=== PATIENT | male | born 1960 | race Caucasian/White ===

== ENCOUNTER 2018-03-06 23:18 | Emergency (ER) | payer MEDICARE, OTHER ==
[~2018-03-06] VITALS: Ht 167.6 cm; Wt 49.0 kg
[~2018-03-06 23:18] MED LIST: ACET160E5 PEG; ACET160O49 PEG; ACIDOPHILUS100 MG PO; CARB200O5 PEG; CLON1PAT TD; CRAN1POW MC; DIAZ2TAB3 PEG; DOCU50LI PEG; DOXA1TAB2 PEG; DOXA2TAB2 PEG; DOXY20TA5 PEG; ECON15CR TP; ESOM40SU PEG; FLUT16SP NS; LIDO700A27 TP; LOPE1LIQ PEG; LORA5SOL4 PEG; MAGN2400 PEG; MAGN400T3 PO; MIRT15TA3 PEG; MONT10TA9 PEG; POLY17PO29 PEG; POLY17PO29 PO; SENN8.8S5 PEG; SIME80TA14 PEG; TERB30CR TP; TRAZ150T49 PEG; VITA113. TP; ZINC56.7 TP; ZIPR20CA3 PEG; ZIPR80CA3 PEG; [UNRECOGNIZED DRUG - CODE] PEG; [UNRECOGNIZED DRUG - CODE] PEG
--- NOTE | 2018-03-07 03:49 | PHYS DOC ---
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 Tube last functioned at 5 PM during feeding and patient has not been able to get his APM medications yet. Patient has had no vomiting. Review of Systems Review of Systems Constitutional: Denies fever or chills [] Respiratory: Denies cough or shortness of breath [] Cardiovascular: Denies chest pain[] GI: Denies abdominal pain, nausea, vomiting [] All other systems were reviewed and found to be within normal limits, except as documented in this note. Allergies Allergies Allergies Coded Allergies Type Severity Reaction Last Updated Verified No Known Drug Allergies 01/12/18 No Physical Exam Physical Exam Constitutional: Well developed, well nourished, no acute distress, non-toxic appearance. [] HENT: Normocephalic, atraumatic, bilateral external ears normal. [] Eyes: PERRLA, EOMI, conjunctiva normal, no discharge. [] Neck: Normal range of motion, no tenderness, supple, no stridor. [] Cardiovascular:Heart rate regular rhythm [] Lungs & Thorax: Bilateral breath sounds clear to auscultation [] Abdomen: Bowel sounds normal, soft, no tenderness. [] Skin: Warm, dry. [] Extremities: No tenderness, no cyanosis, no clubbing. [] Neurologic: Awake and alert with no obvious focal deficits. [] Current Patient Data Vital Signs Vital Signs Date Time Temp Pulse Resp B/P (MAP) Pulse Ox O2 Delivery O2 Flow Rate FiO2 03/07/18 00:18 97.5 70 16 170/83 (112) 99 Room Air 97.5 EKG EKG [] Radiology/Procedures Radiology/Procedures [] Course & Med Decision Making Course & Med Decision Making Pertinent Labs and Imaging studies reviewed. (See chart for details) Offered to change out to one of the gastrostomy tubes that we have at this facility. Unfortunately we do not have any of the Anuel low-profile gastrostomy tubes. Family prefers not to have a different tube other than the low-profile to placed as patient has pulled him out in the past. They have requested to be transferred to . transfer center was contacted and Dr. Miller will accept patient in transfer. Christel Disclaimer Jose Guadalupeon Disclaimer This electronic medical record was generated, in whole or in part, using a voice recognition dictation system. Departure Departure Impression: Primary Impression: Gastrostomy tube dysfunction Disposition: 02 TRANSFER [facility] Condition: STABLE Referrals: IDA VALENTIN MD (PCP) LESLEY WALTERS Jr. DO Mar 07, 2018 03:49
[2018-03-07 03:50] VITALS: BP 146/90
[2018-03-07 04:28] LABS: BASO # 0.1 x10^3/uL (0.0-0.2); BASO % 1 % (0-3); EOS % 1 % (0-3); HEMATOCRIT 37.7 % (39.0-53.0); LYMPH # 1.4 x10^3/uL (1.0-4.8); LYMPH % 29 % (24-48); MEAN CORPUSCULAR HEMOGLOBIN 31 pg (25-35); MEAN CORPUSCULAR HGB CONC 34 g/dL (31-37); MEAN CORPUSCULAR VOLUME 91 fL (79-100); MONO # 0.3 x10^3/uL (0.0-1.1); MONO % 6 % (0-9); NEUT # 3.2 x10^3uL (1.8-7.7); NEUT % 63 % (31-73); PLATELET COUNT 311 x10^3/uL (140-400); RED BLOOD COUNT 4.14 x10^6/uL (4.30-5.70); RED CELL DISTRIBUTION WIDTH 15.5 % (11.5-14.5)
[2018-03-07 04:42] LABS: CALCIUM 9.4 mg/dL (8.5-10.1); CREATININE 0.6 mg/dL (0.7-1.3); GFR 137.9; POTASSIUM 4.2 mmol/L (3.5-5.1)
[2018-03-07 04:48] LABS: ALBUMIN 3.5 g/dL (3.4-5.0); ALBUMIN/GLOBULIN RATIO 0.8 (1.0-1.7); TOTAL BILIRUBIN 0.2 mg/dL (0.2-1.0); TOTAL PROTEIN 7.9 g/dL (6.4-8.2)
== END 2018-03-07 05:14 | disposition short-term general hospital (02) ==
LOC: ER 23:18
DX: K94.23 Gastrostomy malfunction (principal); K21.9 Gastro-esophageal reflux disease without esophagitis; I10 Essential (primary) hypertension
CPT/HCPCS: 36415; 80053; 85025; 99285

== ENCOUNTER 2019-07-07 00:35 | Inpatient (IN) | payer MEDICARE, OTHER ==
[2019-07-06 23:35] VITALS: BP 163/83
[2019-07-07] VITALS (7 sets, daily range): BP systolic 139–173; BP diastolic 60–97
[~2019-07-07] VITALS: Ht 172.7 cm; Wt 55.3 kg
[~2019-07-07 00:35] MED LIST changes: +DICL100G18 TP; -LORA5SOL4 PEG; +LORA5SOL43 PEG; -MAGN400T3 PO; +MAGN400T5 PO; +MONT10TA49 PEG; -MONT10TA9 PEG
[2019-07-07] MEDS ORDERED: VITS5OIN TP (02:39)
[2019-07-07] MEDS ORDERED: METH57CR17 TP (02:39)
[2019-07-07] MEDS ORDERED: ACID1CAP PEG (02:39)
[2019-07-07] MEDS ORDERED: TERBINAFINE 1% TOP ×2 (02:39)
[2019-07-07] MEDS ORDERED: BISA10SU55 RC (02:39)
[2019-07-07] MEDS ORDERED: FAMO40OR4 PO (02:39)
[2019-07-07] MEDS ORDERED: ZIPR40CA2 PEG (02:39)
[2019-07-07] MEDS ORDERED: ONDANSETRON PF 4 MG/2 ML VIAL. IVP PRN (05:00)
[2019-07-07] MEDS ORDERED: fentaNYL PF VIAL 100 MCG/2 ML VIAL IVP PRN (05:00)
[2019-07-07] MEDS: IV DEXTROSE 5% - 0.9 % NACL 1,000 ML IV SCH ×2 (05:19→17:20)
[2019-07-07] MEDS ORDERED: VANCOMYCIN 1.5 GM in IV NORMAL SALINE 500ML BAG 500 ML IV ONE (05:30)
[2019-07-07] MEDS ORDERED: PIPERACILLIN/TAZOBACTAM 3.375 GM in IV NORMAL SALINE 50ML 50 ML IV SCH (06:00)
[2019-07-07 06:31] LABS: BASO % 0 % (0-3); EOS % 0 % (0-3); HEMATOCRIT 40.3 % (39.0-53.0); HEMOGLOBIN 13.7 g/dL (13.0-17.5); LYMPH # 1.1 x10^3/uL (1.0-4.8); LYMPH % 15 % (24-48); MEAN CORPUSCULAR HEMOGLOBIN 32 pg (25-35); MEAN CORPUSCULAR HGB CONC 34 g/dL (31-37); MEAN CORPUSCULAR VOLUME 93 fL (79-100); MONO # 0.6 x10^3/uL (0.0-1.1); MONO % 9 % (0-9); NEUT # 5.2 x10^3/uL (1.8-7.7); NEUT % 75 % (31-73); PLATELET COUNT 304 x10^3/uL (140-400); RED BLOOD COUNT 4.31 x10^6/uL (4.30-5.70); RED CELL DISTRIBUTION WIDTH 15.9 % (11.5-14.5); WHITE BLOOD COUNT 6.9 x10^3/uL (4.0-11.0)
[2019-07-07 06:43] LABS: ALBUMIN 3.4 g/dL (3.4-5.0); ALBUMIN/GLOBULIN RATIO 0.8 (1.0-1.7); CALCIUM 8.8 mg/dL (8.5-10.1); CREATININE 0.6 mg/dL (0.7-1.3); POTASSIUM 3.8 mmol/L (3.5-5.1); TOTAL BILIRUBIN 0.4 mg/dL (0.2-1.0); TOTAL PROTEIN 7.7 g/dL (6.4-8.2)
[2019-07-07] MEDS: VANCOMYCIN PER PHARMACY MC PRN (07:45)
--- NOTE | 2019-07-07 07:45 | NUR ---
Pharmacy Vancomycin Dosing Note S: Consulted to monitor and dose vancomycin started 07/07/19. O: BARB DEVI is a 59 year old M with Sepsis Other Antibiotics: ZOSYN LABS: Last BUN: 17 Last Creatinine: 0.6 Creatinine Clearance: 100 mL/min Last WBC: 6.9 Tmax (past 24 hours): 98.3 Target Trough: 15-20 A: Based on: VANCO dosing guidelines P: 1. Begin Vancomycin 1500mg LOAD dose, then 1000 mg IV q12h 2. Follow up Trough level on 07/08/19 at 1730 3. Pharmacy will continue to monitor, follow and adjust therapy as needed. WILIAN DOMINGUEZ RP, 07/07/19 [id number]
[2019-07-07] MEDS: levETIRAcetam 500 MG in IV DEXTROSE 5% 100ML 100 ML IV SCH ×2 (08:18→21:19)
--- NOTE | 2019-07-07 09:31 | PDOC2 ---
MARBELLA ABDUL SALES DESIGNER 07/07/19 0931: CONSULT Date of Consult Date of Consult DATE: 07/07/19 TIME: 09:24 Reason for Consult Reason for Consult: vomiting Referring Physician Referring Physician: ER Identification/Chief Complaint Chief Complaint vomiting Source Source: Chart review History of Present Illness Reason for Visit: Admitted with vomiting, abdominal pain. PEG, could not keep anything down. Patient has been admitted multiple times/issues CT showed stool in colon, no obstruction Past Medical History Cardiovascular: No pertinent hx GI: GERD Past Surgical History Past Surgical History: Other Family History Family History: Hypertension Social History Social History: Parent ALCOHOL: none Drugs: None Current Medications Current Medications Current Medications Dextrose/Sodium Chloride 1,000 ml @ 100 mls/hr Q10H IV Last administered on 07/07/19at 05:19; Start 07/07/19 at 05:00 Levetiracetam 500 mg/Dextrose 105 ml @ 420 mls/hr Q12HR IV Last administered on 07/07/19at 08:18; Start 07/07/19 at 09:00 Vancomycin HCl (Vanco Per Pharmacy) 1 each PRN DAILY PRN MC SEE COMMENTS Last administered on 07/07/19at 07:45; Start 07/07/19 at 05:00 Piperacillin Sod/ Tazobactam Sod 3.375 gm/Sodium Chloride 50 ml @ 100 mls/hr Q8HRS IV Last administered on 07/07/19at 05:36; Start 07/07/19 at 06:00; Stop 07/07/19 at 07:28; Status DC Fentanyl Citrate (Fentanyl 2ml Vial) 50 mcg PRN Q4HRS PRN IVP PAIN; Start 07/07/19 at 05:00 Ondansetron HCl (Zofran) 4 mg PRN Q4HRS PRN IVP NAUSEA/VOMITING; Start 07/07/19 at 05:00 Vancomycin HCl 1.5 gm/Sodium Chloride 500 ml @ 250 mls/hr 1X ONCE IV Last administered on 07/07/19at 05:36; Start 07/07/19 at 05:30; Stop 07/07/19 at 07:29; Status DC Piperacillin Sod/ Tazobactam Sod 3.375 gm/Sodium Chloride 50 ml @ 100 mls/hr Q6HRS IV ; Start 07/07/19 at 12:00 Vancomycin HCl 1 gm/Sodium Chloride 250 ml @ 250 mls/hr Q12H IV ; Start 07/07/19 at 18:00 Vancomycin HCl (Vancomycin Trough Level) 1 each 1X ONCE MC ; Start 07/08/19 at 17:30; Stop 07/08/19 at 17:31 Active Scripts Active Reported Vitamin A & D Ointment Packet (Vits A & D/White Pet/Lanolin) 5 Gm Oint.pack 5 Gm TP PRN QID PRN Bengay Greaseless Cream (Methyl Salicylate/Menthol) 57 Gm Cream..g. 1 Vel TP PRN BID PRN 10 Days Geodon (Ziprasidone Hcl) 40 Mg Capsule 40 Mg PEG BID [Terbinafine 1% Cream] 1 Vel TOP PRN BID PRN APPLY TO AFFECTED AREA TWICE A DAY AND NEEDED UP TO FOUR TIMES A DAY FOR SKIN FUNGAL INFECTION [Terbinafine 1%] 1 Applic TOP BID APPLY TO AFFECTED AREA TWICE A DAY AND NEEDED UP TO FOUR TIMES A DAY Famotidine 40 Mg/5 Ml Oral.susp 40 Mg PO HS Dulcolax (Bisacodyl) 10 Mg Supp.rect 1 Supp RC HS 10 Days Acidophilus Probiotic Capsule (Acidophilus/Pectin, [place]) 1 Each Capsule 2 Cap PEG DAILY 30 Days Montelukast Sodium Tablet (Montelukast Sodium) 10 Mg Tablet 1 Tab PEG HS Loratadine 5 Mg/5 Ml Solution 10 Ml PEG DAILY Clonidine Tts-1 (Clonidine) 1 Each Patch.tdwk 1 Patch TD SATURDAYS Docusate Sodium 50 Mg/5 Ml Liquid 50 Mg PEG PRN DAILY PRN Acetaminophen 160 Mg/5 Ml Oral.susp 20 Ml PEG PRN Q6HRS PRN Miralax (Polyethylene Glycol 3350) 17 Gm Powd.pack 1 Packet PEG DAILY Doxazosin Mesylate 2 Mg Tablet 1 Tab PEG HS Simethicone 80 Mg Tab.chew 80 Mg PEG PRN DAILY PRN Nutren (Nutritional Supplement) 1,000 Ml Liquid 250 Ml PEG 5XDAY Magnesium Oxide 400 Mg Tablet 1 Tab PO BID Nexium Packet (Esomeprazole Magnesium) 40 Mg Suspdr.pkt 40 Mg PEG BID mix packet in 15ml of water, wait 2-3 min and administer via J tube Carbamazepine 200 Mg/10 Ml Oral.susp 300 Mg PEG HS Carbamazepine 200 Mg/10 Ml Oral.susp 200 Mg PEG BIDACBL Allergies Allergies: Coded Allergies: No Known Drug Allergies (Unverified , 01/12/18) ROS Review of System poor account of ROS due to mental status Physical Exam General: Cooperative, No acute distress HEENT: Atraumatic, Mucous membr. moist/pink Lungs: Clear to auscultation, Normal air movement Heart: Regular rate, Normal S1, Normal S2 Abdomen: Soft, Other (ND) Extremities: No clubbing, No cyanosis Neuro: Normal speech, Sensation intact Vitals VITALS Vital Signs Date Time Temp Pulse Resp B/P (MAP) Pulse Ox O2 Delivery O2 Flow Rate FiO2 07/07/19 07:00 98.6 90 18 166/86 (112) 94 Room Air 98.6 Labs Labs Laboratory Tests Test 07/07/19 05:43 White Blood Count 6.9 x10^3/uL (4.0-11.0) Red Blood Count 4.31 x10^6/uL (4.30-5.70) Hemoglobin 13.7 g/dL (13.0-17.5) Hematocrit 40.3 % (39.0-53.0) Mean Corpuscular Volume 93 fL (79-100) Mean Corpuscular Hemoglobin 32 pg (25-35) Mean Corpuscular Hemoglobin Concent 34 g/dL (31-37) Red Cell Distribution Width 15.9 % (11.5-14.5) Platelet Count 304 x10^3/uL (140-400) Neutrophils (%) (Auto) 75 % (31-73) Lymphocytes (%) (Auto) 15 % (24-48) Monocytes (%) (Auto) 9 % (0-9) Eosinophils (%) (Auto) 0 % (0-3) Basophils (%) (Auto) 0 % (0-3) Neutrophils # (Auto) 5.2 x10^3/uL (1.8-7.7) Lymphocytes # (Auto) 1.1 x10^3/uL (1.0-4.8) Monocytes # (Auto) 0.6 x10^3/uL (0.0-1.1) Eosinophils # (Auto) 0.0 x10^3/uL (0.0-0.7) Basophils # (Auto) 0.0 x10^3/uL (0.0-0.2) Sodium Level 136 mmol/L (136-145) Potassium Level 3.8 mmol/L (3.5-5.1) Chloride Level 101 mmol/L (98-107) Carbon Dioxide Level 27 mmol/L (21-32) Anion Gap 8 (6-14) Blood Urea Nitrogen 17 mg/dL (8-26) Creatinine 0.6 mg/dL (0.7-1.3) Estimated GFR (Cockcroft-Gault) 137.0 BUN/Creatinine Ratio 28 (6-20) Glucose Level 111 mg/dL (70-99) Calcium Level 8.8 mg/dL (8.5-10.1) Total Bilirubin 0.4 mg/dL (0.2-1.0) Aspartate Amino Transf (AST/SGOT) 25 U/L (15-37) Alanine Aminotransferase (ALT/SGPT) 36 U/L (16-63) Alkaline Phosphatase 94 U/L (46-116) Total Protein 7.7 g/dL (6.4-8.2) Albumin 3.4 g/dL (3.4-5.0) Albumin/Globulin Ratio 0.8 (1.0-1.7) Laboratory Tests Test 07/07/19 05:43 White Blood Count 6.9 x10^3/uL (4.0-11.0) Red Blood Count 4.31 x10^6/uL (4.30-5.70) Hemoglobin 13.7 g/dL (13.0-17.5) Hematocrit 40.3 % (39.0-53.0) Mean Corpuscular Volume 93 fL (79-100) Mean Corpuscular Hemoglobin 32 pg (25-35) Mean Corpuscular Hemoglobin Concent 34 g/dL (31-37) Red Cell Distribution Width 15.9 % (11.5-14.5) Platelet Count 304 x10^3/uL (140-400) Neutrophils (%) (Auto) 75 % (31-73) Lymphocytes (%) (Auto) 15 % (24-48) Monocytes (%) (Auto) 9 % (0-9) Eosinophils (%) (Auto) 0 % (0-3) Basophils (%) (Auto) 0 % (0-3) Neutrophils # (Auto) 5.2 x10^3/uL (1.8-7.7) Lymphocytes # (Auto) 1.1 x10^3/uL (1.0-4.8) Monocytes # (Auto) 0.6 x10^3/uL (0.0-1.1) Eosinophils # (Auto) 0.0 x10^3/uL (0.0-0.7) Basophils # (Auto) 0.0 x10^3/uL (0.0-0.2) Sodium Level 136 mmol/L (136-145) Potassium Level 3.8 mmol/L (3.5-5.1) Chloride Level 101 mmol/L (98-107) Carbon Dioxide Level 27 mmol/L (21-32) Anion Gap 8 (6-14) Blood Urea Nitrogen 17 mg/dL (8-26) Creatinine 0.6 mg/dL (0.7-1.3) Estimated GFR (Cockcroft-Gault) 137.0 BUN/Creatinine Ratio 28 (6-20) Glucose Level 111 mg/dL (70-99) Calcium Level 8.8 mg/dL (8.5-10.1) Total Bilirubin 0.4 mg/dL (0.2-1.0) Aspartate Amino Transf (AST/SGOT) 25 U/L (15-37) Alanine Aminotransferase (ALT/SGPT) 36 U/L (16-63) Alkaline Phosphatase 94 U/L (46-116) Total Protein 7.7 g/dL (6.4-8.2) Albumin 3.4 g/dL (3.4-5.0) Albumin/Globulin Ratio 0.8 (1.0-1.7) Assessment/Plan Assessment/Plan vomiting, abd pain CT without acute findings, did show moderate stool in colon no surgical indications IRON RIVERA MD 07/07/19 0945: CONSULT Assessment/Plan Assessment/Plan Patient seen and examined by me resting comfortably in bed denies any abdominal pain. Abdomen is soft nontender nondistended with normoactive bowel sounds gastrostomy button in place. Agree with Asya assessment and plan may benefit from 2:00 suppository would advance diet as tolerated MARBELLA ABDUL APRN Jul 07, 2019 09:31 IRON RIVERA MD Jul 07, 2019 09:45
[2019-07-07] MEDS: PIPERACILLIN/TAZOBACTAM 3.375 GM in IV NORMAL SALINE 50ML 50 ML IV SCH ×2 (11:49→17:19)
[2019-07-07] MEDS ORDERED: DOCUSATE 100 MG/10 ML SOLUTION. PEG PRN (12:15)
[2019-07-07] MEDS ORDERED: METHYL SALICYLATE/MENTHOL TOPICAL CREAM 57GM TUBE. TP PRN (12:15)
[2019-07-07] MEDS ORDERED: cloNIDine TTS-1 1 PATCH PATCH.TDWK TD SCH (13:00)
[2019-07-07] MEDS ORDERED: MAGNESIUM CITRATE 296 ML SOLUTION. PO ONE (13:00)
--- NOTE | 2019-07-07 13:15 | HP ---
ADMIT DATE: HISTORY OF PRESENT ILLNESS: The patient is a 59-year-old male patient, a resident at [facility], who presented to the Emergency Room of [facility] with his athletic trainer from his [facility]. He apparently had 2 episodes of vomiting today after his PEG tube was feeding. He also started complaining of cough. Today they are concerned about aspiration. The patient has been having urinary retention. His current caregiver is not sure if he had had completed retention for the last 1-2 days and just decreased output. His chart does not have urination noted. His caregiver was concerned about this and the patient had had urine retention problems before. He has not been reported to have fever, does complain of generalized abdominal pain. He was evaluated in the Emergency Room and apparently his lab work showed he has leukocytosis with a white cell count of 14,900. His chemistry showed he has mild hyponatremia. Urinalysis was essentially unremarkable and has had a KUB, which basically showed bowel gas pattern is unremarkable. No suspicious abdominal calcification. Osteopenia is evident. His chest x-ray showed the cardiomediastinal silhouette is normal, minimal linear left basilar discoid atelectasis present. There is no pneumothorax, no pleural effusion is appreciated, no acute bony abnormalities. I spoke with the ER physician. I explained to him that this patient has multiple episodes of small-bowel obstruction and a CT scan of the abdomen and pelvis need to be done and he might need to be transferred to [facility]. He did have a CT scan of the abdomen and pelvis, which showed that his G-tube is presented to the pyloric region. There is moderate quantity of stool in the colon noted. Gonsalez catheter is present in urinary bladder. Circumferential wall thickening of the urinary bladder is noted. There was no evidence of enlarged abdominal or pelvic lymph nodes. No ascites or pelvic free fluid was transferred to [facility] to consult the surgical team. He apparently was seen by the surgical team and they did not see any need for any surgical intervention and that is the aggressive treatment for his constipation. PAST MEDICAL HISTORY: Significant for intellectual disability, Crohn's disease, recurrent episodes of small-bowel obstruction, chronic aspiration pneumonia, dysphagia, status post percutaneous endoscopic gastrostomy tube, seizure disorder, incontinence, benign prostatic hypertrophy with episode of urinary retention, anxiety and depression. PAST SURGICAL HISTORY: Significant for multiple gastrostomy tube placements. Finally, he has LATASHA-PACE button has multiple exploratory laparotomies for multiple bowel obstructions, has multiple abdominal surgeries. ALLERGIES: He has no known drug allergies. FAMILY HISTORY: Noncontributory. SOCIAL HISTORY: The patient is a resident at [facility]. He does not smoke, drink alcohol or use any recreational drugs. MEDICATIONS: He is currently on following medications: He is on clonidine TTS 1 patch weekly, doxazosin mesylate 2 mg per feeding tube at bedtime, Diclofenac sodium 2 grams apply topically daily, carbamazepine 100 mg/5 mL, he takes 10 mL twice a day with breakfast and lunch. He takes 15 mL at bedtime for seizure disorder, ziprasidone for Geodon 40 mg 3 times a day, Nutren. He is in room 58. He is on Nutren two 250 mL per feeding tube 4 times a day. He is on bisacodyl 10 mg suppository rectally daily p.r.n. for constipation, docusate sodium 50 mg per 5 mL liquid 5 mL per feeding tube daily. He is on magnesium hydroxide for milk of magnesia 30 mL per feeding tube daily, polyethylene glycol 17 grams daily. He is on famotidine 40 mg per 5 mL oral suspension daily, terbinafine 15 grams cream applied topically 4 times a day. PHYSICAL EXAMINATION: GENERAL: On arrival to the Emergency Room, the patient looked well and was clearly in no apparent respiratory distress. No pallor, jaundice or cyanosis. No lymphadenopathy, no thyromegaly. No jugular venous distension. No lower limb edema. VITAL SIGNS: His heart rate was 96, blood pressure was 161/87, temperature was 98.2, respiratory rate was 20, and oxygen saturation was 96% on room air. HEAD, EYES, EARS, NOSE AND THROAT: Showed he is normocephalic, atraumatic. NECK: Supple. HEART: Showed normal first and second heart sounds. No gallop, rub or murmur. CHEST: Clear to auscultation. No crepitation or rhonchi. ABDOMEN: Distended, soft with LATASHA-PACE button in the epigastric area. No guarding or rigidity. No organomegaly. All hernial orifice intact. Bowel sounds normal. NEUROLOGIC: He was awake, alert, responding appropriately. All cranial nerves intact. EXTREMITIES: He moves extremities without difficulty. LABORATORY DATA: Showed a white cell count 14,900, hemoglobin 14, hematocrit 42, MCV 93, and platelet count 322,000. His chemistry showed a serum sodium of 131, potassium 4.1, chloride 91, bicarbonate 30, anion gap of 10, BUN 21, creatinine 0.8, estimated GFR was 98 mL per minute. His glucose was 116, calcium was 9.4. Total bilirubin, AST, ALT, alkaline phosphatase were normal. Total protein was 8, albumin 3.9. As I stated, his KUB showed that bowel gas pattern is unremarkable. No suspicious abdominal calcification. Osteopenia is evident. His chest x-ray showed that the cardiomediastinal silhouette is normal, minimal linear left basilar discoid atelectasis present. There is no pneumothorax, no pleural effusion is appreciated, no acute bony abnormalities and a CT scan of the abdomen and pelvis showed that the patient has right coronary artery calcification present. Bibasilar discoid atelectasis is noted. Possibilities infiltrate is not excluded on this exam limited due to motion at the right hepatic lobe posterior segment with a 1.6 cm diameter hypoenhancing lesion. He has remained stable. Spleen, pancreas, adrenal glands and kidneys are normal. Gallbladder fossa is unremarkable. G-tube is present at the pyloric region. Moderate quantity of stool in the colon noted. No extraluminal gas, circumferential wall thickening of the stomach is noted. Stomach was decompressed. No bowel obstruction, moderate quantity of stool within the colon. Gonsalez catheter is present in the urinary bladder. Circumferential wall thickening of the urinary bladder is noted. Minimal gas in the urinary bladder. No surrounding inflammatory finding. No enlarged abdominal or pelvic lymph nodes. No ascites or pelvic free fluid, cephalization of L5 noted. PLAN: Apparently the patient was seen by the surgical team and the abdomen is soft, nondistended with normal bowel sounds and gastrostomy tube is in place. The patient would benefit from suppositories and to advance his diet as tolerated. I will order the Dulcolax suppositories for now and see if he has any bowel movement. Once he started having bowel movement, we will start his tube feeding and all his other medications given through the feeding tube. NEYMAR GRIMES MD DR: WENDIE/suzanne JOB#: [id number] / [id number]
--- NOTE | 2019-07-07 15:26 | NUR ---
SW following for discharge planning. Discussed with RN, pt is a resident at a [facility]. SW will continue to follow for discharge planning needs.
[2019-07-07] MEDS: VANCOMYCIN 1 GM in IV NORMAL SALINE 250ML 250 ML IV SCH (17:23)
[2019-07-07] MEDS: BISACODYL 10 MG SUPP.RECT. RC SCH (21:16)
[2019-07-07] MEDS: MAGNESIUM OXIDE 400 MG TABLET PO SCH (21:17)
--- NOTE | 2019-07-08 00:04 | NUR ---
Attempted to readjust mask but pt claimed he doesnt want to continue to use the bipap tonight. Addendum: 07/08/19 at 0200 by MICHELLE HERNÁNDEZ RN Disregard above note, wrong patient.
[2019-07-08] MEDS: PIPERACILLIN/TAZOBACTAM 3.375 GM in IV NORMAL SALINE 50ML 50 ML IV SCH ×4 (00:14→17:15)
[2019-07-08 03:00] VITALS: BP 147/80
[2019-07-08] MEDS: IV DEXTROSE 5% - 0.9 % NACL 1,000 ML IV SCH ×3 (05:29→21:25)
[2019-07-08] MEDS: VANCOMYCIN 1 GM in IV NORMAL SALINE 250ML 250 ML IV SCH ×2 (06:02→18:54)
[2019-07-08 07:00] VITALS: BP 156/72
--- NOTE | 2019-07-08 08:48 | PDOC ---
MARBELLA ABDUL MAINS AND SERVICE SUPERVISOR 07/08/19 0848: SURGICAL PROGRESS NOTE Subjective difficult to communicate with pt documented 4 stools no documented emesis Vital Signs Vital Signs Date Time Temp Pulse Resp B/P (MAP) Pulse Ox O2 Delivery O2 Flow Rate FiO2 07/08/19 03:00 97.4 77 18 147/80 (102) 95 97.4 07/07/19 15:00 Room Air I&O Intake and Output 07/08/19 07:00 Intake Total 0 ml Output Total 2250 ml Balance -2250 ml Intake Oral 0 ml Output Urine Total 2250 ml # Bowel Movements 4 General: Cooperative, No acute distress Abdomen: Soft, Other (ND) Labs Laboratory Tests Test 07/07/19 05:43 White Blood Count 6.9 x10^3/uL (4.0-11.0) Red Blood Count 4.31 x10^6/uL (4.30-5.70) Hemoglobin 13.7 g/dL (13.0-17.5) Hematocrit 40.3 % (39.0-53.0) Mean Corpuscular Volume 93 fL (79-100) Mean Corpuscular Hemoglobin 32 pg (25-35) Mean Corpuscular Hemoglobin Concent 34 g/dL (31-37) Red Cell Distribution Width 15.9 % (11.5-14.5) Platelet Count 304 x10^3/uL (140-400) Neutrophils (%) (Auto) 75 % (31-73) Lymphocytes (%) (Auto) 15 % (24-48) Monocytes (%) (Auto) 9 % (0-9) Eosinophils (%) (Auto) 0 % (0-3) Basophils (%) (Auto) 0 % (0-3) Neutrophils # (Auto) 5.2 x10^3/uL (1.8-7.7) Lymphocytes # (Auto) 1.1 x10^3/uL (1.0-4.8) Monocytes # (Auto) 0.6 x10^3/uL (0.0-1.1) Eosinophils # (Auto) 0.0 x10^3/uL (0.0-0.7) Basophils # (Auto) 0.0 x10^3/uL (0.0-0.2) Sodium Level 136 mmol/L (136-145) Potassium Level 3.8 mmol/L (3.5-5.1) Chloride Level 101 mmol/L (98-107) Carbon Dioxide Level 27 mmol/L (21-32) Anion Gap 8 (6-14) Blood Urea Nitrogen 17 mg/dL (8-26) Creatinine 0.6 mg/dL (0.7-1.3) Estimated GFR (Cockcroft-Gault) 137.0 BUN/Creatinine Ratio 28 (6-20) Glucose Level 111 mg/dL (70-99) Calcium Level 8.8 mg/dL (8.5-10.1) Total Bilirubin 0.4 mg/dL (0.2-1.0) Aspartate Amino Transf (AST/SGOT) 25 U/L (15-37) Alanine Aminotransferase (ALT/SGPT) 36 U/L (16-63) Alkaline Phosphatase 94 U/L (46-116) Total Protein 7.7 g/dL (6.4-8.2) Albumin 3.4 g/dL (3.4-5.0) Albumin/Globulin Ratio 0.8 (1.0-1.7) Problem List constipation improved would work toward feeding pt no surgical indications, available if needed IRON RIVERA MD 07/08/19 0932: SURGICAL PROGRESS NOTE Assessment/Plan Patient doing much better had bowel movements with suppositories agree with advancing to tube feeds. No further surgical recommendations agree with Asya assessment and plan MARBELLA ABDUL APRN Jul 08, 2019 08:48 IRON RIVERA MD Jul 08, 2019 09:32
[2019-07-08] MEDS: levETIRAcetam 500 MG in IV DEXTROSE 5% 100ML 100 ML IV SCH ×2 (09:00→21:26)
[2019-07-08] MEDS: POLYETHYLENE GLYCOL 3350 17 GM PACKET. PEG SCH (09:00)
[2019-07-08] MEDS ORDERED: VITS A & D/LANOLIN TOPICAL OINTMENT 42GM TUBE. TP PRN (09:45)
[2019-07-08] MEDS ORDERED: ACETAMINOPHEN 650 MG/20.3 ML SOLUTION. PEG PRN (09:45)
[2019-07-08] MEDS ORDERED: CLOTRIMAZOLE 1% TOPICAL CREAM 15GM TUBE. TP PRN (09:47)
[2019-07-08] MEDS ORDERED: NUTRITIONAL SUPPLEMENT PEG SCH (10:00)
[2019-07-08 11:00] VITALS: BP 132/69
[2019-07-08] MEDS: CETIRIZINE HCL 10 MG TABLET. PEG SCH (11:21)
[2019-07-08] MEDS: LANSOPRAZOLE 30 MG TAB.RAP.DR PEG SCH ×2 (11:21→17:15)
[2019-07-08] MEDS: CLOTRIMAZOLE 1% TOPICAL CREAM 15GM TUBE. TP SCH ×2 (11:21→21:37)
[2019-07-08] MEDS: carBAMazepine 200 MG/10 ML ORAL.SUSP PEG SCH ×2 (11:21→21:30)
[2019-07-08] MEDS: MAGNESIUM OXIDE 400 MG TABLET PO SCH ×2 (11:22→21:31)
--- NOTE | 2019-07-08 14:46 | PN ---
DATE: 07/08/2019 SUBJECTIVE: The patient is resting slightly propped up in bed, in no apparent distress. On questioning him, he denied any abdominal pain. Nursing staff said that he has had 4 bowel movements. No nausea or vomiting. PHYSICAL EXAMINATION: GENERAL: When I examined him this morning, he looked well and was clearly in no apparent respiratory distress. No pallor, jaundice, cyanosis or thyromegaly. No jugular venous distention. No lower limb edema. VITAL SIGNS: His heart rate was 74, blood pressure 156/72, temperature was 97.9, respiratory rate was 18 and oxygen saturation was 96%. HEAD, EYES, EARS, NOSE AND THROAT: Normocephalic, atraumatic. NECK: Supple. CARDIAC: Normal first and second heart sounds. No gallop or murmur. CHEST: Clear to auscultation. No crepitation or rhonchi. ABDOMEN: Distended with Vijay-Wade button in the epigastric area. No tenderness. No guarding or rigidity. No organomegaly. All hernial orifice intact. Bowel sounds normal. NEUROLOGIC: He is awake, alert, responding appropriately. All cranial nerves are intact. He moves extremities without difficulty. His intake over the last 24 hours is incompletely recorded, output was 600. No lab works were done this morning. ASSESSMENT: Severe constipation, resolved. PLAN: To resume all his medication including his tube feeding. Continue with IV antibiotic for now and we will evaluate him again tomorrow and if he remains stable, can be discharged back to his intermediate. NEYMAR GRIMES MD DR: WENDIE/suzanne JOB#: [id number] / [id number]
[2019-07-08 15:00] VITALS: BP 149/60
[2019-07-08] MEDS: VANCOMYCIN PER PHARMACY MC PRN ×4 (15:46→18:49)
[2019-07-08 17:37] LABS: VANC TR 8.5 mcg/mL (10.0-20.0)
--- NOTE | 2019-07-08 18:58 | NUR ---
Pharmacy Vancomycin Dosing Note S:Consulted to monitor and dose vancomycin started 07/07/19. O:BARB DEVI is a 59 year old M with Sepsis . Height: 5 feet, 8 inches Weight: 55.629416 kg Lucinda Body Weight: 68.40 Adjusted Body Weight: 63.16 Dosing Weight: Other Antibiotics: ZOSYN LABS: Last BUN: 17 Last Creatinine: 0.6 Creatinine Clearance: 101 mL/min Last WBC: 6.9 Last Procalcitonin: Tmax (past 24 hours): 99.1 Microbiology: I/O: Drug Levels: Last Trough level: 8.5 on 07/08/19 at 1712 Last dose given 07/08/19 at 0602 Vancomycin Dosing: Loading Dose: 1500 mg x1 Dosing Weight: Target Trough: 15-20 A: Based on trough of 8.5 using [facility] kinetics: P: 1. Change Vancomycin to 1000 mg IVPB q8h. 2. Follow up Trough levels as needed. 3. Pharmacy will continue to monitor, follow and adjust therapy as needed. Denis Lopez [facility], 07/08/19 0653
[2019-07-08 19:00] VITALS: BP 140/57
[2019-07-08] MEDS ORDERED: DOXAZOSIN MESYLATE 1 MG TABLET. PEG SCH (21:00)
[2019-07-08] MEDS ORDERED: ZIPRASIDONE HCL 40 MG PEG SCH (21:00)
[2019-07-08] MEDS: BISACODYL 10 MG SUPP.RECT. RC SCH (21:27)
[2019-07-08] MEDS: FAMOTIDINE 20 MG TABLET. PEG SCH (21:31)
[2019-07-08] MEDS: SIMETHICONE 80 MG TAB.CHEW PEG PRN (21:31)
[2019-07-08] MEDS: MONTELUKAST SODIUM 10 MG TABLET. PEG SCH (21:31)
[2019-07-08 23:00] VITALS: BP 146/61
[2019-07-09] MEDS: PIPERACILLIN/TAZOBACTAM 3.375 GM in IV NORMAL SALINE 50ML 50 ML IV SCH ×4 (00:17→17:07)
[2019-07-09 03:00] VITALS: BP 156/74
[2019-07-09] MEDS ORDERED: VANCOMYCIN 1 GM in IV NORMAL SALINE 250ML 250 ML IV SCH (03:00)
[2019-07-09] MEDS: LANSOPRAZOLE 30 MG TAB.RAP.DR PEG SCH ×2 (04:55→15:47)
[2019-07-09 05:28] LABS: HEMATOCRIT 36.3 % (39.0-53.0); HEMOGLOBIN 12.1 g/dL (13.0-17.5); RED BLOOD COUNT 3.85 x10^6/uL (4.30-5.70); RED CELL DISTRIBUTION WIDTH 14.7 % (11.5-14.5); WHITE BLOOD COUNT 4.4 x10^3/uL (4.0-11.0)
[2019-07-09 05:57] LABS: ALBUMIN 2.7 g/dL (3.4-5.0); ALBUMIN/GLOBULIN RATIO 0.7 (1.0-1.7); CALCIUM 7.9 mg/dL (8.5-10.1); CREATININE 0.6 mg/dL (0.7-1.3); POTASSIUM 3.8 mmol/L (3.5-5.1); TOTAL BILIRUBIN 0.3 mg/dL (0.2-1.0); TOTAL PROTEIN 6.5 g/dL (6.4-8.2)
[2019-07-09] MEDS: carBAMazepine 200 MG/10 ML ORAL.SUSP PEG SCH ×3 (06:27→20:36)
[2019-07-09] MEDS: IV DEXTROSE 5% - 0.9 % NACL 1,000 ML IV SCH (06:29)
[2019-07-09 07:00] VITALS: BP 136/64
[2019-07-09] MEDS: POLYETHYLENE GLYCOL 3350 17 GM PACKET. PEG SCH (08:30)
[2019-07-09] MEDS: CETIRIZINE HCL 10 MG TABLET. PEG SCH (08:30)
[2019-07-09] MEDS: MAGNESIUM OXIDE 400 MG TABLET PO SCH ×2 (08:30→20:37)
[2019-07-09] MEDS: CLOTRIMAZOLE 1% TOPICAL CREAM 15GM TUBE. TP SCH ×2 (08:30→20:38)
[2019-07-09] MEDS: levETIRAcetam 500 MG in IV DEXTROSE 5% 100ML 100 ML IV SCH (08:30)
[2019-07-09] MEDS ORDERED: PECTIN CITRUS PEG SCH (09:00)
[2019-07-09] MEDS ORDERED: ACIDOPHILUS PEG SCH (09:00)
--- NOTE | 2019-07-09 09:22 | RAD ---
EXAM: CHEST 1 VIEW History: Aspiration pneumonia COMPARISON: 07/26/2018 TECHNIQUE: Single portable radiograph of the chest FINDINGS: The cardiac silhouette is unremarkable. Mild prominent bilateral interstitial lung markings could be mild congestive changes or infiltrates. IMPRESSION: Unchanged exam.. Electronically signed by: Daniel Hitchcock MD (07/09/2019 9:19 AM) [facility]
[2019-07-09] MEDS: VANCOMYCIN PER PHARMACY MC PRN (10:20)
[2019-07-09 11:00] VITALS: BP 144/66
[2019-07-09] MEDS: DOXAZOSIN MESYLATE 1 MG TABLET. PEG SCH ×2 (11:04→20:38)
[2019-07-09] MEDS ORDERED: OLANZapine 5 MG TABLET PEG ONE (14:45)
[2019-07-09 15:00] VITALS: BP 117/78
[2019-07-09 19:00] VITALS: BP 137/58
[2019-07-09 19:20] LABS: VANC TR 9.2 mcg/mL (10.0-20.0)
[2019-07-09] MEDS: MONTELUKAST SODIUM 10 MG TABLET. PEG SCH (20:37)
[2019-07-09] MEDS: FAMOTIDINE 20 MG TABLET. PEG SCH (20:37)
[2019-07-09] MEDS: BISACODYL 10 MG SUPP.RECT. RC SCH ×2 (20:38→20:40)
--- NOTE | 2019-07-09 21:30 | NUR ---
MED ADMINISTRATION NOTE: Non-administered patient's HS dose of Cardura d/t it being previously administered by day shift at approximately 1130.
[2019-07-09 23:02] VITALS: BP 138/66
[2019-07-10] MEDS: PIPERACILLIN/TAZOBACTAM 3.375 GM in IV NORMAL SALINE 50ML 50 ML IV SCH ×4 (00:03→18:36)
[2019-07-10 03:15] VITALS: BP 154/90
[2019-07-10] MEDS: SIMETHICONE 80 MG TAB.CHEW PEG PRN (03:52)
[2019-07-10 07:00] VITALS: BP 168/86
[2019-07-10] MEDS: POLYETHYLENE GLYCOL 3350 17 GM PACKET. PEG SCH (09:52)
[2019-07-10] MEDS: MAGNESIUM OXIDE 400 MG TABLET PO SCH ×2 (09:52→19:42)
[2019-07-10] MEDS: carBAMazepine 200 MG/10 ML ORAL.SUSP PEG SCH ×3 (09:52→19:43)
[2019-07-10] MEDS: LANSOPRAZOLE 30 MG TAB.RAP.DR PEG SCH ×2 (09:52→18:34)
[2019-07-10] MEDS: CETIRIZINE HCL 10 MG TABLET. PEG SCH (09:52)
[2019-07-10] MEDS: CLOTRIMAZOLE 1% TOPICAL CREAM 15GM TUBE. TP SCH ×2 (09:53→21:00)
[2019-07-10 11:00] VITALS: BP 152/77
[2019-07-10] MEDS: OLANZapine 5 MG TABLET PEG SCH (13:32)
[2019-07-10 15:00] VITALS: BP 158/84
--- NOTE | 2019-07-10 16:59 | RAD ---
Examination: Single frontal view the chest and frontal view of the abdomen HISTORY: History of constipation or bowel obstruction COMPARISON: Radiograph from 07/09/2019 and acute abdomen series from 07/21/2018 Findings: Mild cardiomegaly. Diffuse mild prominent bilateral interstitial lung markings likely congestive changes or interstitial infiltrates. Air distended bowel loops identified in the abdomen, nonspecific. IMPRESSION: 1. Air distended bowel loops identified in the abdomen, nonspecific. If bowel obstruction is of clinical concern CT can be considered for further evaluation. 2. Mild prominent bilateral interstitial lung markings likely congestive changes or interstitial infiltrates. Electronically signed by: Daniel Hitchcock MD (07/10/2019 4:57 PM) [facility]
[2019-07-10 19:00] VITALS: BP 181/88
[2019-07-10] MEDS: MONTELUKAST SODIUM 10 MG TABLET. PEG SCH (19:42)
[2019-07-10] MEDS: FAMOTIDINE 20 MG TABLET. PEG SCH (19:42)
[2019-07-10] MEDS: BISACODYL 10 MG SUPP.RECT. RC SCH (19:44)
[2019-07-10] MEDS: DOXAZOSIN MESYLATE 1 MG TABLET. PEG SCH (19:45)
--- NOTE | 2019-07-10 20:27 | PN ---
DATE: 07/10/2019 SUBJECTIVE: The patient is resting, slightly propped up in bed, no apparent distress. On questioning him, he denied any abdominal pain. Denied any further episodes of nausea and vomiting. Nursing staff did not voice any concerns that he has an uneventful night. PHYSICAL EXAMINATION: GENERAL: When I examined him, he looked well and was slightly pale, but no jaundice, cyanosis or thyromegaly. No jugular venous distention. No limb edema. VITAL SIGNS: Her heart rate was 64, blood pressure was 168/86, temperature was 96.7, respiratory rate was 16, and oxygen saturation was 97% on room air. HEAD, EYES, EARS, NOSE AND THROAT: Showed normocephalic, atraumatic. NECK: Supple. CARDIAC: Normal first and second heart sounds. No gallop or murmur. CHEST: Shows central trachea, equal bilateral expansion, air entry, vesicular sounds with crepitation mostly in both sides posteriorly. I could not appreciate any rhonchi. ABDOMEN: Distended, soft with Vijay-Wade button in place. There is no tenderness. No guarding or rigidity. No organomegaly. All hernial orifice intact. Bowel sounds normal. NEUROLOGIC: He was awake, alert. All his cranial nerves are intact. He moves extremities without difficulty. His intake was 3000, output was 2550. LABORATORY DATA: As of yesterday, his white cell count was 4400, hemoglobin 12, hematocrit 36, MCV 94 and platelet count 254,000. Serum sodium 139, potassium 3.8, chloride 105, bicarbonate 26, anion gap of 8, BUN 9, creatinine 0.6, estimated GFR was 137 mL per minute. ASSESSMENT: 1. Recurrent bouts of nausea and vomiting, subsided, severe constipation, resolved. 2. Aspiration pneumonia for which he was on vancomycin and Zosyn. 3. Benign prostatic hypertrophy with bladder outlet obstruction for which he has an indwelling Gonsalez catheter. PLAN: My plan is to discontinue Gonsalez catheter and will scan his bladder in 4 hours' time to make sure it is not retaining urine. I will repeat lab, chest x-ray and KUB and if he remains stable, tomorrow he can be discharged back to long-term on oral antibiotic. NEYMAR GRIMES MD DR: WENDIE/suzanne JOB#: [id number] / [id number]
[2019-07-10 23:03] VITALS: BP 162/79
[2019-07-11] MEDS: PIPERACILLIN/TAZOBACTAM 3.375 GM in IV NORMAL SALINE 50ML 50 ML IV SCH ×3 (00:23→11:57)
[2019-07-11 03:11] VITALS: BP 157/84
--- NOTE | 2019-07-11 03:50 | NUR ---
Patient refusing lab draw at this time. Patient yelling at tender labor to get out of room. Very agitated and pointing finger in anger. Will pass along to day RN.
--- NOTE | 2019-07-11 04:00 | NUR ---
BLADDER SCAN NOTE: PVR scan resulted 285mL. Per bladder scan protocol, will rescan at 0700 and follow order dependent on result. Will pass along to day RN.
[2019-07-11 07:00] VITALS: BP 165/87
--- NOTE | 2019-07-11 07:33 | NUR ---
BLADDER SCAN NOTE: Assisted patient to BSC. Patient voided approximately 150mL. PVR resulted 219mL. Will pass along to day RN.
[2019-07-11] MEDS: carBAMazepine 200 MG/10 ML ORAL.SUSP PEG SCH ×2 (08:01→11:57)
[2019-07-11] MEDS: LANSOPRAZOLE 30 MG TAB.RAP.DR PEG SCH (08:02)
[2019-07-11] MEDS: MAGNESIUM OXIDE 400 MG TABLET PO SCH (08:02)
[2019-07-11] MEDS: CETIRIZINE HCL 10 MG TABLET. PEG SCH (08:02)
[2019-07-11] MEDS: POLYETHYLENE GLYCOL 3350 17 GM PACKET. PEG SCH (08:02)
[2019-07-11] MEDS: OLANZapine 5 MG TABLET PEG SCH (08:02)
[2019-07-11] MEDS: CLOTRIMAZOLE 1% TOPICAL CREAM 15GM TUBE. TP SCH (08:07)
[2019-07-11] MEDS ORDERED: AMOX1TAB61 PO (09:13)
[2019-07-11] MEDS ORDERED: DOXA4TAB3 PO (09:20)
--- NOTE | 2019-07-11 10:38 | DS ---
DATE OF DISCHARGE: 07/11/2019 HOSPITAL COURSE: The patient is a 59-year-old male patient with intellectual disability, who lives at [facility] and who was initially seen at [facility] Room with recurrent bouts of nausea and vomiting. He also started complaining of cough and they were concerned about aspiration. The patient has been having also urinary retention. His current caregiver is not sure if he had complete retention or just decreased output. He was evaluated and was transferred to [facility] for possible bowel obstruction. He was also found to have leukocytosis, aspiration pneumonia and mild hyponatremia. I did increase his doxazosin to 4 mg to control his blood pressure and also for his benign prostatic hypertrophy, we were able to remove his Gonsalez catheter. PHYSICAL EXAMINATION: GENERAL: When I saw him today, he looked well and was clearly in no apparent respiratory distress. No pallor, jaundice, cyanosis or thyromegaly. No jugular venous distension. No limb edema. VITAL SIGNS: Her heart rate was 77, blood pressure was 165/87, temperature was 97.9, respiratory rate was 17 and oxygen saturation was 97% on room air. HEAD, EYES, EARS, NOSE AND THROAT: Showed normocephalic, atraumatic. NECK: Supple. HEART: Normal first and second heart sounds. No gallop, rub or murmur. CHEST: Clear to auscultation. No crepitation or rhonchi. ABDOMEN: Distended, soft with Vijay-Wade button at the epigastric area. There is no tenderness. No guarding or rigidity. No organomegaly. All hernial orifices intact. Bowel sounds normal. NEUROLOGIC: He has very intellectual impairment, but all his cranial nerves are intact. He is able to walk with a walker with a 2-person assist. His intake over the last 24 hours was 2300, output was 1000. LABORATORY DATA: His most recent lab work showed a white cell count 4400, hemoglobin 12, hematocrit 36, MCV 94 and platelet count 254,000. Serum sodium was 139, potassium 3.8, chloride 105, bicarbonate 26, anion gap of 8, BUN 9, creatinine 0.6, estimated GFR was 157 mL per minute. His glucose was 123. Calcium was 7.9. Total bilirubin, AST, ALT, alkaline phosphatase were normal. Total protein was 6.5, albumin was 2.7. DISCHARGE MEDICATIONS: He was discharged back to [facility] to continue on Augmentin 875 mg twice a day for 7 more days for aspiration pneumonia, acetaminophen 650 mg every 6 hours, acidophilus probiotic capsule 2 capsules per feeding tube twice a day, Dulcolax 10 mg suppository rectally daily for constipation, carbamazepine 200 mg/10 mL takes 100 mg per feeding tube twice a day and carbamazepine 300 mg at bedtime, clonidine TTS 1 patch transdermally once a week every Thursday, Colace 50 mg per PEG tube daily p.r.n. for constipation, doxazosin was increased to 4 mg per feeding tube daily, Nexium 40 mg per feeding tube twice a day, famotidine 40 mg once a day, loratadine 10 mg per feeding tube once a day, magnesium oxide 400 mg twice a day, Bengay greaseless cream applied topically twice a day, montelukast 10 mg at bedtime, Nutren 250 mg 5 times a day, polyethylene glycol 17 grams daily p.r.n. for constipation, simethicone 80 mg per feeding tube daily. He is on vitamin A and D ointment topically 4 times a day, ziprasidone for Geodon 40 mg per feeding tube twice a day. FINAL DISCHARGE DIAGNOSES: 1. Constipation. 2. Recurrent nausea and vomiting with resultant aspiration pneumonia. 3. Dysphagia for which he is on Vijay-Wade button in epigastric area. 4. Benign prostatic hypertrophy with urinary retention. 5. Seizure disorder. 6. Intellectual disability. NEYMAR GRIMES MD DR: WENDIE/suzanne JOB#: [id number] / [id number]
[2019-07-11 11:00] VITALS: BP 151/82
--- NOTE | 2019-07-11 14:13 | NUR ---
Discharge Note: Patient was discharged back to his [facility]. Patient and family aware of plans. Patients IV was discontinued without any complications per RN. Patients caregiver was given discharge summary/instructions, follow-ups, prescriptions and educational material. Patient did not have any further questions or concerns. Patient was taken down to the main entrance via wheelcahir, accompanied by JOSE Alexandre, with all personal belongings, where his caregiver was waiting for him to take him home.
== END 2019-07-11 13:15 | disposition home or self-care (01) | DRG 178 ==
LOC: 5 SOUTH 00:35
PROVIDERS: ADMIT Internal Medicine; ATTEND Internal Medicine
DX: J69.0 Pneumonitis due to inhalation of food and vomit (principal); E87.1 Hypo-osmolality and hyponatremia; N13.8 Other obstructive and reflux uropathy; K59.00 Constipation, unspecified; F79 Unspecified intellectual disabilities; G40.909 Epilepsy, unspecified, not intractable, without status epilepticus; M85.80 Other specified disorders of bone density and structure, unspecified site; N40.1 Benign prostatic hyperplasia with lower urinary tract symptoms; R13.10 Dysphagia, unspecified; R33.8 Other retention of urine; Z82.49 Family history of ischemic heart disease and other diseases of the circulatory system; F32.9 Major depressive disorder, single episode, unspecified; F41.9 Anxiety disorder, unspecified; K21.9 Gastro-esophageal reflux disease without esophagitis
CPT/HCPCS: 36415; 71045; 74018; 80053; 80202; 85025; 85027; J1953; J2543; J3370; J7040; J7042; J7050; 97530; 97535; G0378; J7030

== ENCOUNTER 2020-01-20 09:57 | Inpatient (IN) | payer MEDICARE, OTHER ==
[~2020-01-20] VITALS: Ht 172.7 cm; Wt 75.0 kg
[~2020-01-20 09:57] MED LIST changes: +ACID1CAP PEG; +AMOX1TAB61 PO; +BISA10SU55 RC; -DICL100G18 TP; +DICL100G54 TP; +DOXA4TAB3 PO; -ECON15CR TP; +ECON15CR3 TP; +FAMO40OR4 PO; -MAGN2400 PEG; +MAGN24003 PEG; +METH57CR17 TP; -TERB30CR TP; +TERB30CR13 TP; +TERBINAFINE 1% TOP; +VITS5OIN3 TP; -ZINC56.7 TP; +ZINC56.713 TP; +ZIPR40CA2 PEG
[2020-01-20 10:45] LABS: BASO # 0.1 x10^3/uL (0.0-0.2); BASO % 1 % (0-3); EOS % 0 % (0-3); HEMATOCRIT 25.8 % (39.0-53.0); HEMOGLOBIN 8.5 g/dL (13.0-17.5); LYMPH # 0.3 x10^3/uL (1.0-4.8); LYMPH % 2 % (24-48); MEAN CORPUSCULAR HEMOGLOBIN 29 pg (25-35); MEAN CORPUSCULAR HGB CONC 33 g/dL (31-37); MEAN CORPUSCULAR VOLUME 87 fL (79-100); MONO # 0.9 x10^3/uL (0.0-1.1); MONO % 5 % (0-9); NEUT # 16.8 x10^3/uL (1.8-7.7); NEUT % 93 % (31-73); PLATELET COUNT 464 x10^3/uL (140-400); RED BLOOD COUNT 2.98 x10^6/uL (4.30-5.70); RED CELL DISTRIBUTION WIDTH 17.4 % (11.5-14.5); WHITE BLOOD COUNT 18.1 x10^3/uL (4.0-11.0)
[2020-01-20] MEDS ORDERED: IV NORMAL SALINE 1000ML BAG 1,000 ML IV ONE (10:45)
[2020-01-20 11:04] LABS: CALCIUM 8.7 mg/dL (8.5-10.1); CREATININE 0.9 mg/dL (0.7-1.3); GFR 85.8; POTASSIUM 4.1 mmol/L (3.5-5.1)
[2020-01-20 11:09] LABS: ALBUMIN 2.9 g/dL (3.4-5.0); DIRECT BILIRUBIN 0.1 mg/dL (0.0-0.2); TOTAL BILIRUBIN 0.2 mg/dL (0.2-1.0); TOTAL PROTEIN 6.9 g/dL (6.4-8.2)
[2020-01-20 11:25] LABS: % BANDS 9 % (0-9); % LYMPHS 1 % (24-48); % METAS 1 % (0-0); % MONOS 2 % (0-10); % SEGS 87 % (35-66); ANISOCYTOSIS SLIGHT; PLT ESTIMATE INCREASED (ADEQUATE)
[2020-01-20] MEDS ORDERED: IOHEXOL 300 MG/ML 100ML VIAL. IV ONE (11:30)
--- NOTE | 2020-01-20 11:37 | PHYS DOC ---
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 He has been having the nausea and vomiting for about a week. His G- tube is come out which has closed off. He has minimal pain. His vomitus is dark brown/black. No alleviating or exacerbating factors. Location GI tract. Duration constant. He denies cough or fever. It is unclear when the patient's G-tube came out, but his wound suggests it did not just come out today. Review of systems negative for chest pain shortness of breath. Positive for nausea vomiting and a mild epigastric abdominal pain that is sharp shooting and nonradiating. He denies fevers or chills. All other review of system negative ED course: 59-year-old male presents emergency department today with nausea vomiting recently has lost his G-tube. EKG obtained and reviewed by myself shows sinus tachycardia. ST segments not suggestive of acute ischemia. On arrival he is afebrile with tachycardia. Blood pressure is elevated as well. Labs show leukocytosis of 18,000 with anemia of 8.5 down from 11.7 in July. Chemistry panel unremarkable. Urine analysis negative. CT abdomen pelvis shows diffuse patchy airspace opacities suggestive of infiltration and/or aspiration. Broad-spectrum antibiotics ordered. Given his dark vomitus and his low hemoglobin it is probable he has an upper GI bleed. We will admit the patient to the hospital. I spoke with Dr. Jaeger who accepts patient for admission. Basic bridge orders placed. Heart Score: Risk Factors: Risk Factors: DM, Current or recent (<one month) smoker, HTN, HLP, family history of CAD, obesity. Risk Scores: Score 0 - 3: 2.5% MACE over next 6 weeks - Discharge Home Score 4 - 6: 20.3% MACE over next 6 weeks - Admit for Clinical Observation Score 7 - 10: 72.7% MACE over next 6 weeks - Early Invasive Strategies Current Medications: Current Medications Medications (Trade) Dose Ordered Sig/Spencer Start Time Stop Time Status Last Admin Dose Admin Sodium Chloride 1,000 ml @ 1,000 mls/hr 1X ONCE 01/20/20 10:45 01/20/20 11:44 01/20/20 10:52 1,000 MLS/HR Allergies: Allergies: Allergies Coded Allergies Type Severity Reaction Last Updated Verified No Known Drug Allergies 01/12/18 No Physical Exam: PE: Constitutional: Well developed, well nourished, no acute distress, non-toxic appearance. [] HENT: Normocephalic, atraumatic, bilateral external ears normal, oropharynx moist, no oral exudates, nose normal. [] Eyes: PERRLA, EOMI, conjunctiva normal, no discharge. [] Neck: Normal range of motion, no tenderness, supple, no stridor. [] Cardiovascular:Heart rate regular rhythm, no murmur [] Lungs & Thorax: Bilateral breath sounds clear to auscultation [] Abdomen: Bowel sounds normal, soft, no tenderness, no masses, no pulsatile masses. No rebound tenderness or guarding. The patient has a closed ostomy in the epigastrium. Skin: Warm, dry, no erythema, no rash. [] Back: No tenderness, no CVA tenderness. [] Extremities: No tenderness, no cyanosis, no clubbing, ROM intact, no edema. [] Neurologic: Alert and oriented X 3, normal motor function, normal sensory function, no focal deficits noted. [] Psychologic: Affect normal, judgement normal, mood normal. [] Current Patient Data: Labs: Laboratory Tests Test 01/20/20 10:31 White Blood Count 18.1 x10^3/uL (4.0-11.0) H Red Blood Count 2.98 x10^6/uL (4.30-5.70) L Hemoglobin 8.5 g/dL (13.0-17.5) L Hematocrit 25.8 % (39.0-53.0) L Mean Corpuscular Volume 87 fL (79-100) Mean Corpuscular Hemoglobin 29 pg (25-35) Mean Corpuscular Hemoglobin Concent 33 g/dL (31-37) Red Cell Distribution Width 17.4 % (11.5-14.5) H Platelet Count 464 x10^3/uL (140-400) H Neutrophils (%) (Auto) 93 % (31-73) H Lymphocytes (%) (Auto) 2 % (24-48) L Monocytes (%) (Auto) 5 % (0-9) Eosinophils (%) (Auto) 0 % (0-3) Basophils (%) (Auto) 1 % (0-3) Neutrophils # (Auto) 16.8 x10^3/uL (1.8-7.7) H Lymphocytes # (Auto) 0.3 x10^3/uL (1.0-4.8) L Monocytes # (Auto) 0.9 x10^3/uL (0.0-1.1) Eosinophils # (Auto) 0.0 x10^3/uL (0.0-0.7) Basophils # (Auto) 0.1 x10^3/uL (0.0-0.2) Segmented Neutrophils % 87 % (35-66) H Band Neutrophils % 9 % (0-9) Lymphocytes % 1 % (24-48) L Monocytes % 2 % (0-10) Metamyelocytes % 1 % (0-0) H Platelet Estimate Increased (ADEQUATE) Anisocytosis Slight Sodium Level 138 mmol/L (136-145) Potassium Level 4.1 mmol/L (3.5-5.1) Chloride Level 100 mmol/L (98-107) Carbon Dioxide Level 30 mmol/L (21-32) Anion Gap 8 (6-14) Blood Urea Nitrogen 28 mg/dL (8-26) H Creatinine 0.9 mg/dL (0.7-1.3) Estimated GFR (Cockcroft-Gault) 85.8 Glucose Level 121 mg/dL (70-99) H Calcium Level 8.7 mg/dL (8.5-10.1) Total Bilirubin 0.2 mg/dL (0.2-1.0) Direct Bilirubin 0.1 mg/dL (0.0-0.2) Aspartate Amino Transferase (AST) 15 U/L (15-37) Alanine Aminotransferase (ALT) 25 U/L (16-63) Alkaline Phosphatase 90 U/L (46-116) Troponin I Quantitative < 0.017 ng/mL (0.000-0.055) Total Protein 6.9 g/dL (6.4-8.2) Albumin 2.9 g/dL (3.4-5.0) L Lipase 42 U/L (73-393) L Laboratory Tests 01/20/20 10:31 Laboratory Tests 01/20/20 10:31 Vital Signs: Vital Signs Date Time Temp Pulse Resp B/P (MAP) Pulse Ox O2 Delivery O2 Flow Rate FiO2 01/20/20 09:57 98.7 119 30 154/70 (98) 96 Room Air 98.7 EKG: EKG: [] Radiology/Procedures: Radiology/Procedures: [] Course & Med Decision Making: Course & Med Decision Making Pertinent Labs and Imaging studies reviewed. (See chart for details) [] Dragon Disclaimer: Dragon Disclaimer: This electronic medical record was generated, in whole or in part, using a voice recognition dictation system. Departure Departure Impression: Primary Impression: Nausea & vomiting Additional Impressions: Dislodged gastrostomy tube Aspiration pneumonia GI bleed Disposition: ADMITTED INPATIENT Admitting Physician: HIMKendall Condition: STABLE Referrals: IDA VALENTIN MD (PCP) Justicifation of Admission Dx: Justifications for Admission: Justification of Admission Dx: Yes Comments: GI BLEED AND ASPIRATION SOLUEMIKY KEENE MD Jan 20, 2020 11:37
[2020-01-20] MEDS ORDERED: CONTRAST GIVEN. MC PRN (11:45)
[2020-01-20] MEDS ORDERED: ONDANSETRON PF 4 MG/2 ML VIAL. IVP ONE (11:45)
--- NOTE | 2020-01-20 12:15 | RAD ---
Examination: CT of the abdomen pelvis with IV contrast History : history of abdominal pain COMPARISON: 12/27/2019 TECHNIQUE: Axial CT images of the abdomen pelvis were performed with IV contrast. Coronal and sagittal reformats are performed Exposure: One or more of the following individualized dose reduction techniques were utilized for this examination: 1. Automated exposure control 2. Adjustment of the mA and/or kV according to patient size 3. Use of iterative reconstruction technique FINDINGS: Diffuse patchy airspace opacities identified in the right middle lobe of the lung, left lingula and bibasilar lungs likely atelectasis or infiltrates or aspiration. Thickened appearance of the wall of the distal esophagus unchanged. No evidence of free air identified in the abdomen. The liver demonstrates a 1.5 cm hypodensity in the right lobe of the liver. The spleen, adrenals grossly appears unremarkable. The stomach is mildly distended. The small bowel is nondilated. Moderate amount of feces and gas identified throughout the colon. The appendix is normal. Moderate distended urinary bladder. The bilateral kidneys enhance symmetrically. Moderate degenerative changes thoracolumbar spine. IMPRESSION: 1. Diffuse patchy airspace opacities identified in the partially visualized right middle lobe, left lingula and bibasilar lungs likely atelectasis or infiltrates or aspiration. Unchanged thickened appearance of the wall of the distal esophagus probably esophagitis. 2. Moderately distended urinary bladder, nonspecific similar to prior exam. 3. 1.5 cm hypodensity identified in the right lobe of the liver is unchanged, probably hemangioma. Electronically signed by: Daniel Hitchcock MD (01/20/2020 12:12 PM) [id number]
[2020-01-20 12:17] LABS: BILIRUBIN,URINE NEGATIVE (NEG); CLARITY,URINE CLEAR; COLOR,URINE YELLOW; NITRITE,URINE NEGATIVE (NEG); PH,URINE 8.5 (<5.0-8.0); PROTEIN,URINE NEGATIVE (NEG-TRACE); UROBILINOGEN,URINE 0.2 mg/dL (0.2 mg/dL)
[2020-01-20 12:27] LABS: AMORPHOUS SEDIMENT,UR PRESENT /HPF; BACTERIA,URINE FEW /HPF (0-FEW); RBC,URINE OCC /HPF (0-2); SQUAMOUS EPITHELIAL CELL,UR FEW /LPF
[2020-01-20] MEDS ORDERED: PIP/TAZO PER PHARMACY MC PRN (13:15)
[2020-01-20] MEDS ORDERED: CLINDAMYCIN 600MG PREMIX 50 ML IV ONE (13:15)
[2020-01-20] MEDS ORDERED: PIPERACILLIN/TAZOBACTAM 3.375 GM in IV NORMAL SALINE 50ML 50 ML IV ONE (13:30)
[2020-01-20] MEDS ORDERED: VANCOMYCIN 1.75 GM in IV NORMAL SALINE 500ML BAG 500 ML IV ONE (13:30)
[2020-01-20] MEDS ORDERED: PANTOPRAZOLE 40 MG TABLET.DR. PO ONE (14:45)
--- NOTE | 2020-01-20 14:50 | PDOC1 ---
History and Physical Date of Admission: Date of Admission DATE: 01/20/20 TIME: 14:43 Chief Complaint: Problems: (1) Small bowel obstruction due to adhesions (2) Seizure disorder (3) Paralytic ileus (4) Constipation (5) Abdominal pain (6) Dislodged gastrostomy tube (7) Aspiration pneumonia (8) GI bleed (9) Nausea & vomiting Chief Complain: Nausea vomiting diarrhea G-tube either fell out or he pulled out Possible aspiration History of Present Illness: HPI: This is a middle-aged white male who has a feeding tube and has had for years. He had a Anuel button actually which is a very short feeding tube and it apparently fell out about 3 this morning His sister is actually sure if it fell out or if he pulled it out he has been known to pull them out He has been having shortness of breath and choking a little he also had a week's worth of nausea vomiting diarrhea He is cognitively challenged so it is difficult to get the real story from him He normally lives at assisted care facility a care home He apparently was placed at [facility] jail recently because of the COVID-19 situation I discussed the case with ER physician were going to meet the patient and get him a new feeding tube and give him IV antibiotics I did call the GI nurse practitioner as well she is aware of the situation Past Medical/Surgical History: PMH/PSH: Past Medical History: Anxiety, Bipolar, Constipation, GERD, Hypertension, Seizure, Schizophrenia, Other Additional Past Medical Histor: Spinal Stenosis in Neck,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,BPH,Mild MR, Past Surgical History: Other Additional Past Surgical Histo: Anuel button g-tube, cervical surgeries Allergies: Allergies: Coded Allergies: No Known Drug Allergies (Unverified , 01/12/18) Family History: Family History: Noncontributory Social History: Social History: He lives normally at a care home but currently is at [facility] long-term care because of the Covid-19 situation He does not drink smoke or take drug Current Medications: Current Medications Current Medications Sodium Chloride 1,000 ml @ 1,000 mls/hr 1X ONCE IV Last administered on 01/20/20at 10:52; Start 01/20/20 at 10:45; Stop 01/20/20 at 11:44; Status DC Iohexol (Omnipaque 300 Mg/ml) 75 ml 1X ONCE IV Last administered on 01/20/20at 11:54; Start 01/20/20 at 11:30; Stop 01/20/20 at 11:32; Status DC Info (CONTRAST GIVEN -- Rx MONITORING) 1 each PRN DAILY PRN MC SEE COMMENTS; Start 01/20/20 at 11:45; Stop 01/22/20 at 11:44 Ondansetron HCl (Zofran) 4 mg 1X ONCE IVP Last administered on 01/20/20at 12:01; Start 01/20/20 at 11:45; Stop 01/20/20 at 11:46; Status DC Vancomycin HCl (Vanco Per Pharmacy) 1 each PRN DAILY PRN MC SEE COMMENTS; Start 01/20/20 at 13:15; Status UNV Piperacillin Sod/ Tazobactam Sod (Zosyn Per Pharmacy) 1 each PRN DAILY PRN MC SEE COMMENTS; Start 01/20/20 at 13:15; Status UNV Clindamycin Phosphate 50 ml @ 100 mls/hr 1X ONCE IV Last administered on 01/20/20at 13:50; Start 01/20/20 at 13:15; Stop 01/20/20 at 13:44; Status DC Vancomycin HCl 1.75 gm/Sodium Chloride 500 ml @ 250 mls/hr 1X ONCE IV ; Start 01/20/20 at 13:30; Stop 01/20/20 at 15:29 Piperacillin Sod/ Tazobactam Sod 3.375 gm/Sodium Chloride 50 ml @ 100 mls/hr 1X ONCE IV Last administered on 01/20/20at 13:50; Start 01/20/20 at 13:30; Stop 01/20/20 at 13:59; Status DC Pantoprazole Sodium (Protonix) 40 mg 1X ONCE PO ; Start 01/20/20 at 14:45; Stop 01/20/20 at 14:46 Active Scripts Active Doxazosin Mesylate 4 Mg Tablet 1 Tab PO DAILY 30 Days Augmentin 875-125 Tablet (Amoxicillin/Potassium Clav) 1 Each Tablet 1 Tab PO BID 7 Days Reported Vitamin A & D Ointment Packet (Vits A & D/White Pet/Lanolin) 5 Gm Oint.pack 5 Gm TP PRN QID PRN [place] Greaseless Cream (Methyl Salicylate/Menthol) 57 Gm Cream..g. 1 Vel TP PRN BID PRN 10 Days Geodon (Ziprasidone Hcl) 40 Mg Capsule 40 Mg PEG BID [Terbinafine 1% Cream] 1 Vel TOP PRN BID PRN APPLY TO AFFECTED AREA TWICE A DAY AND NEEDED UP TO FOUR TIMES A DAY FOR SKIN FUNGAL INFECTION [Terbinafine 1%] 1 Applic TOP BID APPLY TO AFFECTED AREA TWICE A DAY AND NEEDED UP TO FOUR TIMES A DAY Famotidine 40 Mg/5 Ml Oral.susp 40 Mg PO HS Dulcolax (Bisacodyl) 10 Mg Supp.rect 1 Supp RC HS 10 Days Acidophilus Probiotic Capsule (Acidophilus/Pectin, [place]) 1 Each Capsule 2 Cap PEG DAILY 30 Days Montelukast Sodium Tablet (Montelukast Sodium) 10 Mg Tablet 1 Tab PEG HS Loratadine 5 Mg/5 Ml Solution 10 Ml PEG DAILY Clonidine Tts-1 (Clonidine) 1 Each Patch.tdwk 1 Patch TD SATURDAYS Docusate Sodium 50 Mg/5 Ml Liquid 50 Mg PEG PRN DAILY PRN Acetaminophen 160 Mg/5 Ml Oral.susp 20 Ml PEG PRN Q6HRS PRN Miralax (Polyethylene Glycol 3350) 17 Gm Powd.pack 1 Packet PEG DAILY Simethicone 80 Mg Tab.chew 80 Mg PEG PRN DAILY PRN Nutren (Nutritional Supplement) 1,000 Ml Liquid 250 Ml PEG 5XDAY Magnesium Oxide 400 Mg Tablet 1 Tab PO BID Nexium Packet (Esomeprazole Magnesium) 40 Mg Suspdr.pkt 40 Mg PEG BID mix packet in 15ml of water, wait 2-3 min and administer via J tube Carbamazepine 200 Mg/10 Ml Oral.susp 300 Mg PEG HS Carbamazepine 200 Mg/10 Ml Oral.susp 200 Mg PEG BIDACBL ROS: Review of Systems Unable to obtain the patient is cognitively challenged although he does admit to some back pain and some choking and nausea Physical Exam: Vital Signs: Vital Signs Date Time Temp Pulse Resp B/P (MAP) Pulse Ox O2 Delivery O2 Flow Rate FiO2 01/20/20 12:29 106 21 133/64 (87) 94 Room Air 01/20/20 09:57 98.7 98.7 Physcial Exam: GEN: Cognitively challenged but very pleasant cannot really tell me a whole lot HEENT: The head is somewhat small and a little abnormal in shape EYES: Extraocular muscles are intact, pupil are equally round and reactive to light and accommodation MUSCULOSKELETAL: Thin musculoskeletal structure ENDOCRINE: No thyromegaly was palpated LYMPHATICS: No cervical chain or axillary nodes were noted HEMATOPOIETIC: No bruising NECK: Supple, no JVD, no thyromegaly was noted LUNGS: Bibasilar crackles HEART: RRR, S!, S2 present. Peripheral pulses intact, no obvious murmurs noted ABDOMEN: There is an old scar from his various feeding tubes and there is a small spot where you can tell his Anuel button fell out within the past day EXTREMITIES: Without clubbing, cyanosis, or edema. Pedal pulses intact. Negative Homans sign NEUROLOGIC: He is cognitively challenged but moves his extremities PSYCHIATRIC: Pleasant but cognitively challenged SKIN: No ulcerations or rashes, good skin turgor, no jaundice VASCULAR: Good capillary refill, neurovascular bundle appears to be intact Labs: Labs: Laboratory Tests Test 01/20/20 10:31 01/20/20 11:55 White Blood Count 18.1 x10^3/uL (4.0-11.0) Red Blood Count 2.98 x10^6/uL (4.30-5.70) Hemoglobin 8.5 g/dL (13.0-17.5) Hematocrit 25.8 % (39.0-53.0) Mean Corpuscular Volume 87 fL (79-100) Mean Corpuscular Hemoglobin 29 pg (25-35) Mean Corpuscular Hemoglobin Concent 33 g/dL (31-37) Red Cell Distribution Width 17.4 % (11.5-14.5) Platelet Count 464 x10^3/uL (140-400) Neutrophils (%) (Auto) 93 % (31-73) Lymphocytes (%) (Auto) 2 % (24-48) Monocytes (%) (Auto) 5 % (0-9) Eosinophils (%) (Auto) 0 % (0-3) Basophils (%) (Auto) 1 % (0-3) Neutrophils # (Auto) 16.8 x10^3/uL (1.8-7.7) Lymphocytes # (Auto) 0.3 x10^3/uL (1.0-4.8) Monocytes # (Auto) 0.9 x10^3/uL (0.0-1.1) Eosinophils # (Auto) 0.0 x10^3/uL (0.0-0.7) Basophils # (Auto) 0.1 x10^3/uL (0.0-0.2) Segmented Neutrophils % 87 % (35-66) Band Neutrophils % 9 % (0-9) Lymphocytes % 1 % (24-48) Monocytes % 2 % (0-10) Metamyelocytes % 1 % (0-0) Platelet Estimate Increased (ADEQUATE) Anisocytosis Slight Sodium Level 138 mmol/L (136-145) Potassium Level 4.1 mmol/L (3.5-5.1) Chloride Level 100 mmol/L (98-107) Carbon Dioxide Level 30 mmol/L (21-32) Anion Gap 8 (6-14) Blood Urea Nitrogen 28 mg/dL (8-26) Creatinine 0.9 mg/dL (0.7-1.3) Estimated GFR (Cockcroft-Gault) 85.8 Glucose Level 121 mg/dL (70-99) Calcium Level 8.7 mg/dL (8.5-10.1) Total Bilirubin 0.2 mg/dL (0.2-1.0) Direct Bilirubin 0.1 mg/dL (0.0-0.2) Aspartate Amino Transf (AST/SGOT) 15 U/L (15-37) Alanine Aminotransferase (ALT/SGPT) 25 U/L (16-63) Alkaline Phosphatase 90 U/L (46-116) Troponin I Quantitative < 0.017 ng/mL (0.000-0.055) Total Protein 6.9 g/dL (6.4-8.2) Albumin 2.9 g/dL (3.4-5.0) Lipase 42 U/L (73-393) Urine Collection Type Void Urine Color Yellow Urine Clarity Clear Urine pH 8.5 (<5.0-8.0) Urine Specific [place] 1.020 (1.000-1.030) Urine Protein Negative mg/dL (NEG-TRACE) Urine Glucose (UA) Negative mg/dL (NEG) Urine Ketones (Stick) Negative mg/dL (NEG) Urine Blood Negative (NEG) Urine Nitrite Negative (NEG) Urine Bilirubin Negative (NEG) Urine Urobilinogen Dipstick 0.2 mg/dL (0.2 mg/dL) Urine Leukocyte Esterase Negative (NEG) Urine RBC Occ /HPF (0-2) Urine WBC 1-4 /HPF (0-4) Urine Squamous Epithelial Cells Few /LPF Urine Amorphous Sediment Present /HPF Urine Bacteria Few /HPF (0-FEW) Urine Mucus Mod /LPF Laboratory Tests Test 01/20/20 10:31 01/20/20 11:55 White Blood Count 18.1 x10^3/uL (4.0-11.0) Red Blood Count 2.98 x10^6/uL (4.30-5.70) Hemoglobin 8.5 g/dL (13.0-17.5) Hematocrit 25.8 % (39.0-53.0) Mean Corpuscular Volume 87 fL (79-100) Mean Corpuscular Hemoglobin 29 pg (25-35) Mean Corpuscular Hemoglobin Concent 33 g/dL (31-37) Red Cell Distribution Width 17.4 % (11.5-14.5) Platelet Count 464 x10^3/uL (140-400) Neutrophils (%) (Auto) 93 % (31-73) Lymphocytes (%) (Auto) 2 % (24-48) Monocytes (%) (Auto) 5 % (0-9) Eosinophils (%) (Auto) 0 % (0-3) Basophils (%) (Auto) 1 % (0-3) Neutrophils # (Auto) 16.8 x10^3/uL (1.8-7.7) Lymphocytes # (Auto) 0.3 x10^3/uL (1.0-4.8) Monocytes # (Auto) 0.9 x10^3/uL (0.0-1.1) Eosinophils # (Auto) 0.0 x10^3/uL (0.0-0.7) Basophils # (Auto) 0.1 x10^3/uL (0.0-0.2) Segmented Neutrophils % 87 % (35-66) Band Neutrophils % 9 % (0-9) Lymphocytes % 1 % (24-48) Monocytes % 2 % (0-10) Metamyelocytes % 1 % (0-0) Platelet Estimate Increased (ADEQUATE) Anisocytosis Slight Sodium Level 138 mmol/L (136-145) Potassium Level 4.1 mmol/L (3.5-5.1) Chloride Level 100 mmol/L (98-107) Carbon Dioxide Level 30 mmol/L (21-32) Anion Gap 8 (6-14) Blood Urea Nitrogen 28 mg/dL (8-26) Creatinine 0.9 mg/dL (0.7-1.3) Estimated GFR (Cockcroft-Gault) 85.8 Glucose Level 121 mg/dL (70-99) Calcium Level 8.7 mg/dL (8.5-10.1) Total Bilirubin 0.2 mg/dL (0.2-1.0) Direct Bilirubin 0.1 mg/dL (0.0-0.2) Aspartate Amino Transf (AST/SGOT) 15 U/L (15-37) Alanine Aminotransferase (ALT/SGPT) 25 U/L (16-63) Alkaline Phosphatase 90 U/L (46-116) Troponin I Quantitative < 0.017 ng/mL (0.000-0.055) Total Protein 6.9 g/dL (6.4-8.2) Albumin 2.9 g/dL (3.4-5.0) Lipase 42 U/L (73-393) Urine Collection Type Void Urine Color Yellow Urine Clarity Clear Urine pH 8.5 (<5.0-8.0) Urine Specific [place] 1.020 (1.000-1.030) Urine Protein Negative mg/dL (NEG-TRACE) Urine Glucose (UA) Negative mg/dL (NEG) Urine Ketones (Stick) Negative mg/dL (NEG) Urine Blood Negative (NEG) Urine Nitrite Negative (NEG) Urine Bilirubin Negative (NEG) Urine Urobilinogen Dipstick 0.2 mg/dL (0.2 mg/dL) Urine Leukocyte Esterase Negative (NEG) Urine RBC Occ /HPF (0-2) Urine WBC 1-4 /HPF (0-4) Urine Squamous Epithelial Cells Few /LPF Urine Amorphous Sediment Present /HPF Urine Bacteria Few /HPF (0-FEW) Urine Mucus Mod /LPF Images: Images 1. Diffuse patchy airspace opacities identified in the partially visualized right middle lobe, left lingula and bibasilar lungs likely atelectasis or infiltrates or aspiration. Unchanged thickened appearance of the wall of the distal esophagus probably esophagitis. 2. Moderately distended urinary bladder, nonspecific similar to prior exam. 3. 1.5 cm hypodensity identified in the right lobe of the liver is unchanged, probably hemangioma. Assessment/Plan Assessment/Plan Cognitively challenged middle-aged white male who probably pulled his feeding tube out and then got hungry and so somehow got hold of food and aspirated it Plan IV antibiotics Duo nebs Oxygen PRN I consulted GI I did call them to get a new feeding tube Home meds DVT prophylaxis Full code per his sister whoI think is the POA Justicifation of Admission Dx: Justifications for Admission: Justification of Admission Dx: Yes Respiratory Failure: Airway Obstruction SAVANNAH NEWELL III DO Jan 20, 2020 14:50
[2020-01-20] MEDS ORDERED: PANTOPRAZOLE IV PUSH 40 MG VIAL. IVP ONE (15:00)
--- NOTE | 2020-01-20 15:15 | PDOC2 ---
GI CONSULT Reason For Consult: n/v, GI bleed, G tube out HPI: HPI: 59 y/o male who we have seen many times in the past for recurrent n/v and h/o constipation. H/o dysphagia/aspiration w/ LATASHA-PACE low profile gastrostomy feeding tube. Called by Dr. Israel this afternoon. To ER today reporting LATASHA-PACE feeding tube fell out at 3:00 a.m. Sister present in ER, also another sister on phone - they report some vomiting earlier this week. He reports some abdominal pain. Unclear when last stooled. Sister notes "brown" emesis on t-shirt. Hgb a bit lower than baseline. Given IV pantoprazole. PMH: PMH: MR, seizures, BPH, UTI, anxiety/depression, recurrent obstructions vs ileus, constipation, GERD, pneumonia laparotomy, PEG and LATASHA-PACE tubes, ?neurosurgery FH: Family History: No pertinent hx Social History: Smoke: No ALCOHOL: none Drugs: None ROS: Per HPI. Vitals: Vitals: Vital Signs Date Time Temp Pulse Resp B/P (MAP) Pulse Ox O2 Delivery O2 Flow Rate FiO2 01/20/20 12:29 106 21 133/64 (87) 94 Room Air 01/20/20 09:57 98.7 98.7 Labs: Labs: Laboratory Tests Test 01/20/20 10:31 01/20/20 11:55 White Blood Count 18.1 x10^3/uL (4.0-11.0) Red Blood Count 2.98 x10^6/uL (4.30-5.70) Hemoglobin 8.5 g/dL (13.0-17.5) Hematocrit 25.8 % (39.0-53.0) Mean Corpuscular Volume 87 fL (79-100) Mean Corpuscular Hemoglobin 29 pg (25-35) Mean Corpuscular Hemoglobin Concent 33 g/dL (31-37) Red Cell Distribution Width 17.4 % (11.5-14.5) Platelet Count 464 x10^3/uL (140-400) Neutrophils (%) (Auto) 93 % (31-73) Lymphocytes (%) (Auto) 2 % (24-48) Monocytes (%) (Auto) 5 % (0-9) Eosinophils (%) (Auto) 0 % (0-3) Basophils (%) (Auto) 1 % (0-3) Neutrophils # (Auto) 16.8 x10^3/uL (1.8-7.7) Lymphocytes # (Auto) 0.3 x10^3/uL (1.0-4.8) Monocytes # (Auto) 0.9 x10^3/uL (0.0-1.1) Eosinophils # (Auto) 0.0 x10^3/uL (0.0-0.7) Basophils # (Auto) 0.1 x10^3/uL (0.0-0.2) Segmented Neutrophils % 87 % (35-66) Band Neutrophils % 9 % (0-9) Lymphocytes % 1 % (24-48) Monocytes % 2 % (0-10) Metamyelocytes % 1 % (0-0) Platelet Estimate Increased (ADEQUATE) Anisocytosis Slight Sodium Level 138 mmol/L (136-145) Potassium Level 4.1 mmol/L (3.5-5.1) Chloride Level 100 mmol/L (98-107) Carbon Dioxide Level 30 mmol/L (21-32) Anion Gap 8 (6-14) Blood Urea Nitrogen 28 mg/dL (8-26) Creatinine 0.9 mg/dL (0.7-1.3) Estimated GFR (Cockcroft-Gault) 85.8 Glucose Level 121 mg/dL (70-99) Calcium Level 8.7 mg/dL (8.5-10.1) Total Bilirubin 0.2 mg/dL (0.2-1.0) Direct Bilirubin 0.1 mg/dL (0.0-0.2) Aspartate Amino Transf (AST/SGOT) 15 U/L (15-37) Alanine Aminotransferase (ALT/SGPT) 25 U/L (16-63) Alkaline Phosphatase 90 U/L (46-116) Troponin I Quantitative < 0.017 ng/mL (0.000-0.055) Total Protein 6.9 g/dL (6.4-8.2) Albumin 2.9 g/dL (3.4-5.0) Lipase 42 U/L (73-393) Urine Collection Type Void Urine Color Yellow Urine Clarity Clear Urine pH 8.5 (<5.0-8.0) Urine Specific [place] 1.020 (1.000-1.030) Urine Protein Negative mg/dL (NEG-TRACE) Urine Glucose (UA) Negative mg/dL (NEG) Urine Ketones (Stick) Negative mg/dL (NEG) Urine Blood Negative (NEG) Urine Nitrite Negative (NEG) Urine Bilirubin Negative (NEG) Urine Urobilinogen Dipstick 0.2 mg/dL (0.2 mg/dL) Urine Leukocyte Esterase Negative (NEG) Urine RBC Occ /HPF (0-2) Urine WBC 1-4 /HPF (0-4) Urine Squamous Epithelial Cells Few /LPF Urine Amorphous Sediment Present /HPF Urine Bacteria Few /HPF (0-FEW) Urine Mucus Mod /LPF Allergies: Coded Allergies: No Known Drug Allergies (Unverified , 01/12/18) Medications: Current Medications Medications (Trade) Dose Ordered Sig/Spencer Route PRN Reason Start Time Stop Time Status Last Admin Dose Admin Sodium Chloride 1,000 ml @ 1,000 mls/hr 1X ONCE IV 01/20/20 10:45 01/20/20 11:44 DC 01/20/20 10:52 Iohexol (Omnipaque 300 Mg/ml) 75 ml 1X ONCE IV 01/20/20 11:30 01/20/20 11:32 DC 01/20/20 11:54 Ondansetron HCl (Zofran) 4 mg 1X ONCE IVP 01/20/20 11:45 01/20/20 11:46 DC 01/20/20 12:01 Clindamycin Phosphate 50 ml @ 100 mls/hr 1X ONCE IV 01/20/20 13:15 01/20/20 13:44 DC 01/20/20 13:50 Vancomycin HCl 1.75 gm/Sodium Chloride 500 ml @ 250 mls/hr 1X ONCE IV 01/20/20 13:30 01/20/20 15:29 01/20/20 14:44 Piperacillin Sod/ Tazobactam Sod 3.375 gm/Sodium Chloride 50 ml @ 100 mls/hr 1X ONCE IV 01/20/20 13:30 01/20/20 13:59 DC 01/20/20 13:50 Imaging: Imaging: CT A/P IMPRESSION: 1. Diffuse patchy airspace opacities identified in the partially visualized right middle lobe, left lingula and bibasilar lungs likely atelectasis or infiltrates or aspiration. Unchanged thickened appearance of the wall of the distal esophagus probably esophagitis. 2. Moderately distended urinary bladder, nonspecific similar to prior exam. 3. 1.5 cm hypodensity identified in the right lobe of the liver is unchanged, probably hemangioma. PE: GEN: NAD, talking with sister on the phone HEENT: dried dark brown material on lips LUNGS: diminished, poor effort HEART: tachycardic ABD: some distention, BS+, mildly tender - non-specific, LATASHA-PACE site w/ dressing EXTREMITY: No edema SKIN: No rashes, no jaundice NEURO/PSYCH: speech difficult to understand A/P: A/P: Dislodged LATASHA-PACE tube H/o recurrent vomiting, constipation, ileus Leukocytosis, anemia -- LATASHA-PACE tubes not are not stocked at [facility]. Offered regular PEG tube - sister declined, says he'd pull it out. Consider placing something in tube site to keep tract open. ?transfer to facility w/ LATASHA-PACE - defer to SLADE Miller Jan 20, 2020 15:15
[2020-01-20] MEDS ORDERED: DOCU-109 PO (17:42)
[2020-01-20] MEDS ORDERED: DICL100G54 TP (17:42)
[2020-01-20] MEDS ORDERED: HYDR-2869 PO (17:42)
[2020-01-20] MEDS ORDERED: FINA5TAB4 PO (17:42)
[2020-01-20] MEDS ORDERED: ACET325T21 PO (17:42)
[2020-01-20] MEDS ORDERED: ASPI-630 PO (17:42)
[2020-01-20] MEDS ORDERED: ONDA4TAB7 PO (17:42)
[2020-01-20] MEDS ORDERED: MICO113C TP (17:42)
[2020-01-20] MEDS ORDERED: DILT60TA3 PO (17:42)
[2020-01-20] MEDS ORDERED: PROC10TA57 PO (17:42)
[2020-01-20] MEDS ORDERED: ATRO2DRO3 OP (17:42)
[2020-01-20] MEDS ORDERED: DIGO125T3 PO (17:42)
[2020-01-20] MEDS ORDERED: DICY10SO2 PO (17:42)
[2020-01-20] MEDS ORDERED: MAGN400C PO (17:42)
[2020-01-20] MEDS ORDERED: [UNRECOGNIZED DRUG - CODE] PO (17:42)
[2020-01-20] MEDS ORDERED: DOXA2TAB2 PO (17:42)
[2020-01-20] MEDS: VANCOMYCIN PER PHARMACY MC PRN ×2 (18:35→18:36)
--- NOTE | 2020-01-20 18:38 | NUR ---
Pharmacy Vancomycin Dosing Note S:Consulted to monitor and dose vancomycin started 01/20/20. O:BARB DEVI is a 59 year old M with Pneumonia Height: 5 feet, 8 inches Weight: 75.0 kg [place] Body Weight: 68.40 Adjusted Body Weight: 71.04 Dosing Weight: Actual Other Antibiotics: ZOSYN LABS: Last BUN: 28 Last Creatinine: 0.9 Creatinine Clearance: 87 mL/min Last WBC: 18.1 Last Procalcitonin: Tmax (past 24 hours): 98.7 Microbiology: - I/O: - Last dose given 01/20/20 at 1444 Vancomycin Dosing: Loading Dose: 1750 mg x1 Dosing Weight: Actual Target Trough: 15-20 A: Based on: weight and renal function P: 1. Begin Vancomycin 1000 mg IV q12h 2. Follow up Trough level on 01/22/20 at 0230 3. Pharmacy will continue to monitor, follow and adjust therapy as needed. Swathi Vasquez Marco A, 01/20/20 [id number]
[2020-01-20 19:50] VITALS: BP 118/46
[2020-01-20] MEDS: PIPERACILLIN/TAZOBACTAM 3.375 GM in IV NORMAL SALINE 50ML 50 ML IV SCH (21:21)
[2020-01-20] MEDS: AMINO AC 3%/ELECTROLYTE/GLYCER 1,000 ML IV SCH (21:22)
[2020-01-20 23:00] VITALS: BP 130/60
[2020-01-21] VITALS (11 sets, daily range): BP systolic 118–152; BP diastolic 54–69
[2020-01-21] MEDS: PIPERACILLIN/TAZOBACTAM 3.375 GM in IV NORMAL SALINE 50ML 50 ML IV SCH ×4 (01:09→17:30)
[2020-01-21] MEDS: VANCOMYCIN 1 GM in IV NORMAL SALINE 250ML 250 ML IV SCH ×2 (02:49→15:10)
[2020-01-21 03:16] LABS: CREATININE 0.9 mg/dL (0.7-1.3); GFR 85.8
[2020-01-21] MEDS: AMINO AC 3%/ELECTROLYTE/GLYCER 1,000 ML IV SCH ×2 (09:50→12:02)
--- NOTE | 2020-01-21 10:00 | PDOC ---
Infectious Disease Note Vital Sign Vital Signs Vital Signs Date Time Temp Pulse Resp B/P (MAP) Pulse Ox O2 Delivery O2 Flow Rate FiO2 01/21/20 03:00 98.7 93 20 152/62 (92) 94 Room Air 98.7 Labs Lab Laboratory Tests Test 01/20/20 10:31 01/20/20 11:55 01/21/20 02:45 White Blood Count 18.1 x10^3/uL (4.0-11.0) Red Blood Count 2.98 x10^6/uL (4.30-5.70) Hemoglobin 8.5 g/dL (13.0-17.5) Hematocrit 25.8 % (39.0-53.0) Mean Corpuscular Volume 87 fL (79-100) Mean Corpuscular Hemoglobin 29 pg (25-35) Mean Corpuscular Hemoglobin Concent 33 g/dL (31-37) Red Cell Distribution Width 17.4 % (11.5-14.5) Platelet Count 464 x10^3/uL (140-400) Neutrophils (%) (Auto) 93 % (31-73) Lymphocytes (%) (Auto) 2 % (24-48) Monocytes (%) (Auto) 5 % (0-9) Eosinophils (%) (Auto) 0 % (0-3) Basophils (%) (Auto) 1 % (0-3) Neutrophils # (Auto) 16.8 x10^3/uL (1.8-7.7) Lymphocytes # (Auto) 0.3 x10^3/uL (1.0-4.8) Monocytes # (Auto) 0.9 x10^3/uL (0.0-1.1) Eosinophils # (Auto) 0.0 x10^3/uL (0.0-0.7) Basophils # (Auto) 0.1 x10^3/uL (0.0-0.2) Segmented Neutrophils % 87 % (35-66) Band Neutrophils % 9 % (0-9) Lymphocytes % 1 % (24-48) Monocytes % 2 % (0-10) Metamyelocytes % 1 % (0-0) Platelet Estimate Increased (ADEQUATE) Anisocytosis Slight Sodium Level 138 mmol/L (136-145) Potassium Level 4.1 mmol/L (3.5-5.1) Chloride Level 100 mmol/L (98-107) Carbon Dioxide Level 30 mmol/L (21-32) Anion Gap 8 (6-14) Blood Urea Nitrogen 28 mg/dL (8-26) Creatinine 0.9 mg/dL (0.7-1.3) 0.9 mg/dL (0.7-1.3) Estimated GFR (Cockcroft-Gault) 85.8 85.8 Glucose Level 121 mg/dL (70-99) Calcium Level 8.7 mg/dL (8.5-10.1) Total Bilirubin 0.2 mg/dL (0.2-1.0) Direct Bilirubin 0.1 mg/dL (0.0-0.2) Aspartate Amino Transf (AST/SGOT) 15 U/L (15-37) Alanine Aminotransferase (ALT/SGPT) 25 U/L (16-63) Alkaline Phosphatase 90 U/L (46-116) Troponin I Quantitative < 0.017 ng/mL (0.000-0.055) Total Protein 6.9 g/dL (6.4-8.2) Albumin 2.9 g/dL (3.4-5.0) Lipase 42 U/L (73-393) Urine Collection Type Void Urine Color Yellow Urine Clarity Clear Urine pH 8.5 (<5.0-8.0) Urine Specific [place] 1.020 (1.000-1.030) Urine Protein Negative mg/dL (NEG-TRACE) Urine Glucose (UA) Negative mg/dL (NEG) Urine Ketones (Stick) Negative mg/dL (NEG) Urine Blood Negative (NEG) Urine Nitrite Negative (NEG) Urine Bilirubin Negative (NEG) Urine Urobilinogen Dipstick 0.2 mg/dL (0.2 mg/dL) Urine Leukocyte Esterase Negative (NEG) Urine RBC Occ /HPF (0-2) Urine WBC 1-4 /HPF (0-4) Urine Squamous Epithelial Cells Few /LPF Urine Amorphous Sediment Present /HPF Urine Bacteria Few /HPF (0-FEW) Urine Mucus Mod /LPF Lactic Acid Level 0.6 mmol/L (0.4-2.0) Procalcitonin < 0.10 ng/mL (0.00-0.10) Objective Assessment Leukocytosis Suspected or possible aspiration pneumonia. Mental retardation. Dislodged LATASHA-PACE tube H/o recurrent vomiting, constipation, ileus Plan Plan of Care Cont abx F/u labs in am and cults Await ? transfer Thank you # [id number] BENITO LARSEN MD Jan 21, 2020 10:00
--- NOTE | 2020-01-21 11:20 | CONS ---
DATE OF CONSULTATION: 01/21/2020 LOCATION: The patient's room is 404. REQUESTING PHYSICIAN: Barry Israel DO. REASON FOR CONSULTATION: Aspiration. HISTORY OF PRESENT ILLNESS: The patient is a pleasant 59-year-old gentleman, who lives in a residential with history of a mental retardation, has a Vijay-Wade low-profile gastrostomy tube that apparently had fallen out about 3 in the morning. He was transferred to [facility] Emergency Room on the . There is a report he has had some brown emesis and was having some abdominal pain. On arrival, he had a white count of 18.1 with 87 segs. He underwent an abdominal pelvis CT scan, showed some diffuse patchy airspace opacities partially visualized in the right middle lobe, left lingula and bibasilar lungs; had a mildly distended urinary bladder, unchanged 1.5 cm hypodensity area. He has been afebrile and has been placed on vancomycin and Zosyn. Currently, he is lying in bed. He is fairly comfortable. Does have some discomfort in his lower abdomen and a little bit of a cough, denies feeling sick. PAST MEDICAL HISTORY: Positive for some mental retardation, seizures, BPH, UTI, anxiety, depression, recurrent obstruction with ileus, constipation, gastroesophageal reflux disease, pneumonia. PAST SURGICAL HISTORY: Positive for laparotomy, PEG tubes, and the Vijay-Wade tube placed as mentioned above. REVIEW OF SYSTEMS: Otherwise negative. SOCIAL HISTORY: No alcohol, tobacco. Lives in a residential. FAMILY HISTORY: Noncontributory. ALLERGIES: No known drug allergies. CURRENT MEDICATIONS: Include clindamycin x 1. He is on vancomycin. He is on Zosyn. Other meds are available and reviewed in the chart. PHYSICAL EXAMINATION: VITAL SIGNS: He is afebrile, temperature 97, pulse 93, respirations 20, blood pressure 152/62, satting 94% on room air. CONSTITUTIONAL: He is lying in bed. He is cooperative. He is in no acute distress. He looks comfortable. HEENT: Pupils equal and reactive. He has normal conjunctivae. Oral cavity: Pharynx was clear. Questionable dentition. NECK: Supple, no JVD. LUNGS: Decreased in the bases. No rhonchi. HEART: S1, S2. ABDOMEN: Mildly distended. Vijay-Wade site is with the dressing. EXTREMITIES: No clubbing or cyanosis. No gross edema. SKIN: Warm to touch without signs of rash. NEUROLOGIC: He answers questions, moves extremities. SKIN: Warm to touch without signs of rash. LABORATORY VALUES: White count 18.1, hemoglobin 8.5, platelets of 464, 87 segs, 9 bands. Creatinine is 0.9. Normal liver function study tests. Urinalysis not consistent with urinary tract infection. Radiology reviewed in the history of present illness. IMPRESSION: 1. Leukocytosis. 2. Suspected or possible aspiration pneumonia. 3. Mental retardation. 4. Dislodged Vijay-Wade tube. 5. History of recurrent vomiting, constipation, ileus. RECOMMENDATIONS: For now, continue antibiotics, follow up labs in the a.m. as well as cultures, await questionable transfer per GI recommendation. Thank you for asking us to participate in the patient's care. Should you have any questions, please do not hesitate to contact me. BENITO LARSEN MD DR: SYMONE/suzanne JOB#: [id number] / [id number] CHLOE
--- NOTE | 2020-01-21 11:40 | CONS ---
DATE OF CONSULTATION: 01/21/2020 I was asked to see this 59-year-old gentleman for aspiration pneumonia. HISTORY OF PRESENT ILLNESS: The patient is a poor historian, answers no to all of my questions. He appears comfortable. He does have cough, although he denies cough. He did cough during my interview. He was brought to the Emergency Room for nausea and vomiting for about a week. He had a G-tube, which came out. He has dysphagia and has had a G-tube for a long time. CT of abdomen done, which did show infiltrate in the right middle lobe and left lingula and bibasilar. He appears comfortable. He denies shortness of breath. He has been afebrile. PAST MEDICAL HISTORY: Dysphagia, status post G-tube, schizophrenia, hypertension, bipolar disorder, Anuel button G tube. SOCIAL HISTORY: Negative for smoking per chart. FAMILY HISTORY: Hypertension per chart. REVIEW OF SYSTEMS: As mentioned as above, other systems otherwise negative. ALLERGIES: No known drug allergies. MEDICATIONS: Vancomycin, Zosyn. PHYSICAL EXAMINATION: GENERAL: This is a malnourished gentleman. VITAL SIGNS: His O2 saturation is 94%, respiratory rate 18, heart rate 87, blood pressure 135/60, temperature 98. HEENT: Normocephalic, atraumatic. Pupils equal, round, reactive to light. Nose is clear. NECK: There is no lymphadenopathy or thyromegaly. CARDIOVASCULAR: Regular rate and rhythm. PMI is nondisplaced. CHEST: Inspection is normal. LUNGS: There are bibasilar crackles, dullness at the bases. ABDOMEN: Soft. G-tube site is normal. EXTREMITIES: There is no edema. LYMPHATICS: There is no lymphadenopathy. NEUROLOGIC: Alert. SKIN: Pale. LABORATORY DATA: I reviewed the following lab data: CT of abdomen and pelvis did show patchy airspace opacities in right middle lobe, left lingula, bibasilar area, distended urinary bladder, 1.5 cm hypodensity in the right lobe of the liver, unchanged. WBC 18.1, hemoglobin 8.5, platelets 464. Sodium 138, potassium 4.1, chloride 100, CO2 of 30, BUN 28, creatinine 0.9. Troponin less than 0.01. Lactic acid 0.6, albumin 2.9. IMPRESSION: 1. Abnormal chest x-ray secondary to aspiration pneumonia/pneumonitis. 2. Aspiration pneumonia/pneumonitis. 3. Nausea, vomiting? etiology. 4. Dislodged gastrostomy tube. 5. Anemia, questionable gastrointestinal bleeding. PLAN AND RECOMMENDATIONS: 1. Titrate FiO2 to keep O2 saturation 92%. 2. Elevate head of bed. 3. The patient is n.p.o. 4. GI is consulted. 5. I will start him on Protonix IV. 6. Continue antibiotic per ID. 7. Monitor respiratory status very closely. 8. The findings and recommendations were discussed with RN. Thank you very much for allowing me to participate in care of this very nice gentleman. TREY CONCEPCION M.D. DR: LOPEZ/suzanne JOB#: [id number] / [id number]
[2020-01-21] MEDS: PANTOPRAZOLE IV PUSH 40 MG VIAL. IVP SCH (11:53)
[2020-01-21] MEDS: VANCOMYCIN PER PHARMACY MC PRN (12:19)
[2020-01-21] MEDS ORDERED: ACETAMINOPHEN 650 MG SUPP.RECT. PR PRN (12:30)
--- NOTE | 2020-01-21 12:33 | NUR ---
Pt c/o SMALL, educated on Tylenol suppository. Pt refused, stated if SMALL worsened he would call.
[2020-01-21 14:06] LABS: ALBUMIN 2.3 g/dL (3.4-5.0); ALBUMIN/GLOBULIN RATIO 0.6 (1.0-1.7); CALCIUM 7.5 mg/dL (8.5-10.1); CREATININE 0.9 mg/dL (0.7-1.3); GFR 85.8; POTASSIUM 4.2 mmol/L (3.5-5.1); TOTAL BILIRUBIN 0.3 mg/dL (0.2-1.0); TOTAL PROTEIN 5.9 g/dL (6.4-8.2)
--- NOTE | 2020-01-21 14:13 | PDOC ---
GENERAL General: Patient examined chart reviewed today is hospital day 2 for this patient who resides at [facility] with extensive debility from developmental delay, bipolar disorder, swallowing deficit, G-tube feeding dependent, recurrent pneumonia. Recently admitted to [facility] with complications of pneumonia. Discussed at length with brother who called to the drawbridge operator without announcement Geo Tomlin who is his guardian and [employer] he can best be found at phone [phone]. He is very angry because his brothers feeding tube has dislodged and he has not had any enteral feeding for the last 72 hours patient is on peripheral parenteral nutrition. He wants the patient transferred as soon as possible. He has not identified an accepting gastroenterology physician. Patient was admitted with dislodged tube as well as leukocytosis most likely secondary to aspiration pneumonia. We are awaiting blood and urine cultures. I reassured patient's son that we would work on transferring him as soon as we could identify an accepting physician and that is unlikely to happen on the weekend unless he is able to somehow secure that. The last doctor to place that Anuel feeding tube was at [facility] but there is not anybody present there today to accept him. Patient has been COVID tested twice with the last test negative on January 18, 2020. We will need to check if that will suffice for a transfer to another institution especially with active pneumonia. He may need to be re-tested for COVID-19. Patient is com fortable this afternoon he is hoping his brother can come and visit him. Total time today is 35 minutes with greater than 50% in counseling and coordination of care most of which in discussion with patient's brother. Problems: (1) Developmental delay (2) Dislodged gastrostomy tube (3) Aspiration pneumonia (4) Seizure disorder VITAL SIGNS Vital Signs/I&O: Vital Signs Date Time Temp Pulse Resp B/P (MAP) Pulse Ox O2 Delivery O2 Flow Rate FiO2 01/21/20 11:00 98.1 89 18 118/55 (76) 93 Room Air 98.1 I & O0 01/20/20 01/20/20 01/21/20 15:00 23:00 07:00 Intake Total 1100 ml 0 ml 0 ml Balance 1100 ml 0 ml 0 ml In general the patient is resting comfortably in bed follows commands well verbal appropriately interactive HEENT exam is unremarkable for acute abnormality Neck is soft and supple no adenopathy or thyromegaly noted Chest is clear to auscultation anteriorly Heart S1-S2 normal regular rate rhythm no murmurs or gallops are noted Abdomen bowel sounds are present though diminished he has evidence of past extensive abdominal surgery no wounds or discharge are noted. Soft nontender nondistended no masses organomegaly noted Extremity exam is unremarkable for acute abnormality ALLERGIES Allergies: Allergies Coded Allergies Type Severity Reaction Last Updated Verified No Known Drug Allergies 01/12/18 No MEDS Medications: Current Medications Medications (Trade) Dose Ordered Sig/Spencer Start Time Stop Time Status Last Admin Dose Admin Acetaminophen (Tylenol Supp) 650 mg PRN Q6HRS PRN 01/21/20 12:30 Amino Acids/ Glycerin/ Electrolytes 1,000 ml @ 75 mls/hr [id number] 01/20/20 20:30 01/21/20 12:02 Clindamycin Phosphate 50 ml @ 100 mls/hr 1X ONCE 01/20/20 13:15 01/20/20 13:44 DC 01/20/20 13:50 Info (CONTRAST GIVEN -- Rx MONITORING) 1 each PRN DAILY PRN 01/20/20 11:45 01/22/20 11:44 Iohexol (Omnipaque 300 Mg/ml) 75 ml 1X ONCE 01/20/20 11:30 01/20/20 11:32 DC 01/20/20 11:54 Ondansetron HCl (Zofran) 4 mg 1X ONCE 01/20/20 11:45 01/20/20 11:46 DC 01/20/20 12:01 Pantoprazole Sodium (PROTONIX VIAL for IV PUSH) 40 mg DAILYAC 01/21/20 11:15 01/21/20 11:53 Pantoprazole Sodium (Protonix) 40 mg 1X ONCE 01/20/20 14:45 01/20/20 14:52 DC Piperacillin Sod/ Tazobactam Sod (Zosyn Per Pharmacy) 1 each PRN DAILY PRN 01/20/20 13:15 Piperacillin Sod/ Tazobactam Sod 3.375 gm/Sodium Chloride 50 ml @ 100 mls/hr Q6HRS 01/20/20 19:30 01/21/20 11:53 Sodium Chloride 1,000 ml @ 1,000 mls/hr 1X ONCE 01/20/20 10:45 01/20/20 11:44 DC 01/20/20 10:52 Vancomycin HCl (Vanco Per Pharmacy) 1 each PRN DAILY PRN 01/20/20 13:15 01/21/20 12:19 Vancomycin HCl (Vancomycin Trough Level) 1 each 1X ONCE 01/22/20 02:30 01/22/20 02:31 Vancomycin HCl 1.75 gm/Sodium Chloride 500 ml @ 250 mls/hr 1X ONCE 01/20/20 13:30 01/20/20 15:29 DC 01/20/20 14:44 Vancomycin HCl 1 gm/Sodium Chloride 250 ml @ 250 mls/hr Q12H 01/21/20 03:00 01/21/20 02:49 Current Medications Medications (Trade) Dose Ordered Sig/Spencer Route PRN Reason Start Time Stop Time Status Last Admin Dose Admin Pantoprazole Sodium (PROTONIX VIAL for IV PUSH) 40 mg 1X ONCE IVP 01/20/20 15:00 01/20/20 15:01 DC 01/20/20 15:02 Piperacillin Sod/ Tazobactam Sod 3.375 gm/Sodium Chloride 50 ml @ 100 mls/hr Q6HRS IV 01/20/20 19:30 01/21/20 11:53 Vancomycin HCl 1 gm/Sodium Chloride 250 ml @ 250 mls/hr Q12H IV 01/21/20 03:00 01/21/20 02:49 Amino Acids/ Glycerin/ Electrolytes 1,000 ml @ 75 mls/hr [id number] IV 01/20/20 20:30 01/21/20 12:02 Pantoprazole Sodium (PROTONIX VIAL for IV PUSH) 40 mg DAILYAC IVP 01/21/20 11:15 01/21/20 11:53 LAB Lab: Laboratory Tests Test 01/21/20 02:45 Creatinine 0.9 mg/dL (0.7-1.3) Estimated GFR (Cockcroft-Gault) 85.8 Lactic Acid Level 0.6 mmol/L (0.4-2.0) Procalcitonin < 0.10 ng/mL (0.00-0.10) Laboratory Tests 01/21/20 02:45 IMAGING Imaging: PATIENT: BARB TOMLIN ACCOUNT: [id number] : 1960 LOCATION: ER AGE: 59 SEX: M EXAM STATUS: REG ER ORD. PHYSICIAN: MIKY SHIRLEY MD REASON: ABD PAIN AND VOMITING PROCEDURE: CT ABD PELV W/ IV CONTRST ONLY Examination: CT of the abdomen pelvis with IV contrast History : history of abdominal pain COMPARISON: 12/27/2019 TECHNIQUE: Axial CT images of the abdomen pelvis were performed with IV contrast. Coronal and sagittal reformats are performed Exposure: One or more of the following individualized dose reduction techniques were utilized for this examination: 1. Automated exposure control 2. Adjustment of the mA and/or kV according to patient size 3. Use of iterative reconstruction technique FINDINGS: Diffuse patchy airspace opacities identified in the right middle lobe of the lung, left lingula and bibasilar lungs likely atelectasis or infiltrates or aspiration. Thickened appearance of the wall of the distal esophagus unchanged. No evidence of free air identified in the abdomen. The liver demonstrates a 1.5 cm hypodensity in the right lobe of the liver. The spleen, adrenals grossly appears unremarkable. The stomach is mildly distended. The small bowel is nondilated. Moderate amount of feces and gas identified throughout the colon. The appendix is normal. Moderate distended urinary bladder. The bilateral kidneys enhance symmetrically. Moderate degenerative changes thoracolumbar spine. IMPRESSION: 1. Diffuse patchy airspace opacities identified in the partially visualized right middle lobe, left lingula and bibasilar lungs likely atelectasis or infiltrates or aspiration. Unchanged thickened appearance of the wall of the distal esophagus probably esophagitis. 2. Moderately distended urinary bladder, nonspecific similar to prior exam. 3. 1.5 cm hypodensity identified in the right lobe of the liver is unchanged, probably hemangioma. Electronically signed by: Daniel Hitchcock MD (01/20/2020 12:12 PM) [id number] DICTATED and SIGNED BY: DANIEL HITCHCOCK MD DATE: 01/20/20 1212 ASSESSMENT & PLAN A&P Plan as noted above This note was created using [employer] and may have omissions and/or errors due to the nature of real-time voice lithoplate maker. Justicifation of Admission Dx: Justifications for Admission: Justification of Admission Dx: Yes Respiratory Failure: Airway Obstruction KARINA YA MD Jan 21, 2020 14:13
[2020-01-21 14:14] LABS: BASO # 0.1 x10^3/uL (0.0-0.2); BASO % 1 % (0-3); EOS # 0.2 x10^3/uL (0.0-0.7); EOS % 2 % (0-3); LYMPH % 10 % (24-48); MEAN CORPUSCULAR HEMOGLOBIN 30 pg (25-35); MEAN CORPUSCULAR HGB CONC 34 g/dL (31-37); MEAN CORPUSCULAR VOLUME 89 fL (79-100); MONO # 0.7 x10^3/uL (0.0-1.1); MONO % 6 % (0-9); NEUT # 8.8 x10^3/uL (1.8-7.7); NEUT % 81 % (31-73); PLATELET COUNT 343 x10^3/uL (140-400); RED BLOOD COUNT 2.34 x10^6/uL (4.30-5.70); RED CELL DISTRIBUTION WIDTH 17.1 % (11.5-14.5); WHITE BLOOD COUNT 10.8 x10^3/uL (4.0-11.0)
[2020-01-21 14:18] LABS: HEMATOCRIT 20.8 % (39.0-53.0)
--- NOTE | 2020-01-21 14:25 | RAD ---
AP portable chest 01/21/2020. Reason for exam: Follow-up aspiration pneumonia. Comparison is made with an exam of 07/10/2019. Depth of inspiration is fairly shallow. There is suggestion of patchy infiltrate in the mid and lower right lung and retrocardiac left lower lobe. At least some of this appears to have been present previously. No large area of consolidation or pleural fluid is seen. The heart does not appear enlarged. IMPRESSION: Findings suggest patchy bibasilar infiltrates, although some of the abnormalities made be pre-existing. Electronically signed by: Cliff Cates Jr., MD (01/21/2020 2:22 PM) [id number]
--- NOTE | 2020-01-21 15:30 | NUR ---
Covid swab collected and walked down to lab.
[2020-01-21 17:17] LABS: BILIRUBIN,URINE NEGATIVE (NEG); CLARITY,URINE CLEAR; COLOR,URINE YELLOW; NITRITE,URINE NEGATIVE (NEG); PH,URINE 7.5 (<5.0-8.0); PROTEIN,URINE NEGATIVE (NEG-TRACE); UROBILINOGEN,URINE 0.2 mg/dL (0.2 mg/dL)
[2020-01-21 17:29] LABS: SQUAMOUS EPITHELIAL CELL,UR FEW /LPF
[2020-01-21 17:30] LABS: BACTERIA,URINE 0 /HPF (0-FEW); RBC,URINE RARE /HPF (0-2); WBC,URINE OCC /HPF (0-4)
[2020-01-22] MEDS: PIPERACILLIN/TAZOBACTAM 3.375 GM in IV NORMAL SALINE 50ML 50 ML IV SCH ×4 (00:27→17:08)
[2020-01-22 03:00] VITALS: BP 137/66
[2020-01-22 03:14] LABS: BASO # 0.1 x10^3/uL (0.0-0.2); BASO % 1 % (0-3); EOS # 0.3 x10^3/uL (0.0-0.7); EOS % 3 % (0-3); HEMATOCRIT 27.6 % (39.0-53.0); HEMOGLOBIN 9.4 g/dL (13.0-17.5); LYMPH # 1.1 x10^3/uL (1.0-4.8); LYMPH % 11 % (24-48); MEAN CORPUSCULAR HEMOGLOBIN 29 pg (25-35); MEAN CORPUSCULAR HGB CONC 34 g/dL (31-37); MEAN CORPUSCULAR VOLUME 87 fL (79-100); MONO # 0.8 x10^3/uL (0.0-1.1); MONO % 8 % (0-9); NEUT # 7.3 x10^3/uL (1.8-7.7); NEUT % 77 % (31-73); PLATELET COUNT 388 x10^3/uL (140-400); RED BLOOD COUNT 3.19 x10^6/uL (4.30-5.70); RED CELL DISTRIBUTION WIDTH 16.7 % (11.5-14.5); WHITE BLOOD COUNT 9.5 x10^3/uL (4.0-11.0)
[2020-01-22 03:25] LABS: ALBUMIN 2.7 g/dL (3.4-5.0); ALBUMIN/GLOBULIN RATIO 0.6 (1.0-1.7); CALCIUM 8.2 mg/dL (8.5-10.1); CREATININE 1.1 mg/dL (0.7-1.3); GFR 68.1; POTASSIUM 3.8 mmol/L (3.5-5.1); TOTAL BILIRUBIN 0.5 mg/dL (0.2-1.0); TOTAL PROTEIN 7.3 g/dL (6.4-8.2); VANC TR 17.2 mcg/mL (10.0-20.0)
[2020-01-22] MEDS: VANCOMYCIN 1 GM in IV NORMAL SALINE 250ML 250 ML IV SCH ×2 (03:35→15:09)
[2020-01-22] MEDS: VANCOMYCIN PER PHARMACY MC PRN ×2 (03:37→13:34)
--- NOTE | 2020-01-22 03:37 | NUR ---
Pharmacy Vancomycin Dosing Note S: Consulted to monitor and dose vancomycin started 01/20/20. O: BARB DEVI is a 59 year old M with Pneumonia, . Other Antibiotics: ZOSYN 3.375GM IV Q6H LABS: Last BUN: 11 Last Creatinine: 1.1 Creatinine Clearance: 71 mL/min Last WBC: 9.5 Last Procalcitonin: <0.1 Tmax (past 24 hours): 99.7 Microbiology: - I/O: 1100/3 VOIDS Drug Levels: Last Trough level: 17.2 on 01/22/20 at 0245 Last dose given 01/21/20 at 1510 Vancomycin Dosing: Dosing Weight: Actual Target Trough: 15-20 A: Based on: Trough, Actual Wt and CrCl P: 1. 01/22/20 0300 Continue Vancomycin 1000 mg IV q12h 2. Follow up Trough level in 5 to 7 days as needed 3. Pharmacy will continue to monitor, follow and adjust therapy as needed. PINEDA WYLIE RPH, 01/22/20 0338 Signed: 01/22/20 at 0339 by PINEDA WYLIE RPH PHA
[2020-01-22] MEDS: PANTOPRAZOLE IV PUSH 40 MG VIAL. IVP SCH (07:47)
[2020-01-22 07:59] VITALS: BP 106/46
[2020-01-22 08:33] LABS: FECAL OB PT NEGATIVE (NEG)
--- NOTE | 2020-01-22 10:41 | PDOC ---
PULMONARY PROGRESS NOTES Subjective on ra answer some Qs, no sob, no cough Vitals Vital Signs Date Time Temp Pulse Resp B/P (MAP) Pulse Ox O2 Delivery O2 Flow Rate FiO2 01/22/20 08:00 Room Air 01/22/20 07:59 98.4 60 18 106/46 (66) 93 98.4 General: Alert, No acute distress HEENT: Other (nc at perrl) Lungs: Clear, Other Cardiovascular: S1, S2 Abdomen: Soft, Non-tender Neuro Exam: Alert Extremities: No Edema Skin: Warm Labs Laboratory Tests Test 01/20/20 11:55 01/21/20 02:45 01/21/20 17:03 01/22/20 02:45 Urine Collection Type Void Unknown Urine Color Yellow Yellow Urine Clarity Clear Clear Urine pH 8.5 (<5.0-8.0) 7.5 (<5.0-8.0) Urine Specific [place] 1.020 (1.000-1.030) 1.020 (1.000-1.030) Urine Protein Negative mg/dL (NEG-TRACE) Negative mg/dL (NEG-TRACE) Urine Glucose (UA) Negative mg/dL (NEG) Negative mg/dL (NEG) Urine Ketones (Stick) Negative mg/dL (NEG) Trace mg/dL (NEG) Urine Blood Negative (NEG) Negative (NEG) Urine Nitrite Negative (NEG) Negative (NEG) Urine Bilirubin Negative (NEG) Negative (NEG) Urine Urobilinogen Dipstick 0.2 mg/dL (0.2 mg/dL) 0.2 mg/dL (0.2 mg/dL) Urine Leukocyte Esterase Negative (NEG) Negative (NEG) Urine RBC Occ /HPF (0-2) Rare /HPF (0-2) Urine WBC 1-4 /HPF (0-4) Occ /HPF (0-4) Urine Squamous Epithelial Cells Few /LPF Few /LPF Urine Amorphous Sediment Present /HPF Urine Bacteria Few /HPF (0-FEW) 0 /HPF (0-FEW) Urine Mucus Mod /LPF White Blood Count 10.8 x10^3/uL (4.0-11.0) 9.5 x10^3/uL (4.0-11.0) Red Blood Count 2.34 x10^6/uL (4.30-5.70) 3.19 x10^6/uL (4.30-5.70) Hemoglobin 7.0 g/dL (13.0-17.5) 9.4 g/dL (13.0-17.5) Hematocrit 20.8 % (39.0-53.0) 27.6 % (39.0-53.0) Mean Corpuscular Volume 89 fL (79-100) 87 fL (79-100) Mean Corpuscular Hemoglobin 30 pg (25-35) 29 pg (25-35) Mean Corpuscular Hemoglobin Concent 34 g/dL (31-37) 34 g/dL (31-37) Red Cell Distribution Width 17.1 % (11.5-14.5) 16.7 % (11.5-14.5) Platelet Count 343 x10^3/uL (140-400) 388 x10^3/uL (140-400) Neutrophils (%) (Auto) 81 % (31-73) 77 % (31-73) Lymphocytes (%) (Auto) 10 % (24-48) 11 % (24-48) Monocytes (%) (Auto) 6 % (0-9) 8 % (0-9) Eosinophils (%) (Auto) 2 % (0-3) 3 % (0-3) Basophils (%) (Auto) 1 % (0-3) 1 % (0-3) Neutrophils # (Auto) 8.8 x10^3/uL (1.8-7.7) 7.3 x10^3/uL (1.8-7.7) Lymphocytes # (Auto) 1.0 x10^3/uL (1.0-4.8) 1.1 x10^3/uL (1.0-4.8) Monocytes # (Auto) 0.7 x10^3/uL (0.0-1.1) 0.8 x10^3/uL (0.0-1.1) Eosinophils # (Auto) 0.2 x10^3/uL (0.0-0.7) 0.3 x10^3/uL (0.0-0.7) Basophils # (Auto) 0.1 x10^3/uL (0.0-0.2) 0.1 x10^3/uL (0.0-0.2) Sodium Level 138 mmol/L (136-145) 138 mmol/L (136-145) Potassium Level 4.2 mmol/L (3.5-5.1) 3.8 mmol/L (3.5-5.1) Chloride Level 105 mmol/L (98-107) 102 mmol/L (98-107) Carbon Dioxide Level 25 mmol/L (21-32) 25 mmol/L (21-32) Anion Gap 8 (6-14) 11 (6-14) Blood Urea Nitrogen 20 mg/dL (8-26) 11 mg/dL (8-26) Creatinine 0.9 mg/dL (0.7-1.3) 1.1 mg/dL (0.7-1.3) Estimated GFR (Cockcroft-Gault) 85.8 68.1 BUN/Creatinine Ratio 22 (6-20) 10 (6-20) Glucose Level 92 mg/dL (70-99) 101 mg/dL (70-99) Lactic Acid Level 0.6 mmol/L (0.4-2.0) Calcium Level 7.5 mg/dL (8.5-10.1) 8.2 mg/dL (8.5-10.1) Total Bilirubin 0.3 mg/dL (0.2-1.0) 0.5 mg/dL (0.2-1.0) Aspartate Amino Transf (AST/SGOT) 25 U/L (15-37) 33 U/L (15-37) Alanine Aminotransferase (ALT/SGPT) 26 U/L (16-63) 53 U/L (16-63) Alkaline Phosphatase 66 U/L (46-116) 79 U/L (46-116) Total Protein 5.9 g/dL (6.4-8.2) 7.3 g/dL (6.4-8.2) Albumin 2.3 g/dL (3.4-5.0) 2.7 g/dL (3.4-5.0) Albumin/Globulin Ratio 0.6 (1.0-1.7) 0.6 (1.0-1.7) Procalcitonin < 0.10 ng/mL (0.00-0.10) Vancomycin Level Trough 17.2 mcg/mL (10.0-20.0) Vancomycin Last Dose Date Vancomycin Last Dose Time 1500 Test 01/22/20 07:30 Stool Occult Blood Negative (NEG) Laboratory Tests Test 01/21/20 17:03 01/22/20 02:45 01/22/20 07:30 Urine Collection Type Unknown Urine Color Yellow Urine Clarity Clear Urine pH 7.5 (<5.0-8.0) Urine Specific [place] 1.020 (1.000-1.030) Urine Protein Negative mg/dL (NEG-TRACE) Urine Glucose (UA) Negative mg/dL (NEG) Urine Ketones (Stick) Trace mg/dL (NEG) Urine Blood Negative (NEG) Urine Nitrite Negative (NEG) Urine Bilirubin Negative (NEG) Urine Urobilinogen Dipstick 0.2 mg/dL (0.2 mg/dL) Urine Leukocyte Esterase Negative (NEG) Urine RBC Rare /HPF (0-2) Urine WBC Occ /HPF (0-4) Urine Squamous Epithelial Cells Few /LPF Urine Bacteria 0 /HPF (0-FEW) White Blood Count 9.5 x10^3/uL (4.0-11.0) Red Blood Count 3.19 x10^6/uL (4.30-5.70) Hemoglobin 9.4 g/dL (13.0-17.5) Hematocrit 27.6 % (39.0-53.0) Mean Corpuscular Volume 87 fL (79-100) Mean Corpuscular Hemoglobin 29 pg (25-35) Mean Corpuscular Hemoglobin Concent 34 g/dL (31-37) Red Cell Distribution Width 16.7 % (11.5-14.5) Platelet Count 388 x10^3/uL (140-400) Neutrophils (%) (Auto) 77 % (31-73) Lymphocytes (%) (Auto) 11 % (24-48) Monocytes (%) (Auto) 8 % (0-9) Eosinophils (%) (Auto) 3 % (0-3) Basophils (%) (Auto) 1 % (0-3) Neutrophils # (Auto) 7.3 x10^3/uL (1.8-7.7) Lymphocytes # (Auto) 1.1 x10^3/uL (1.0-4.8) Monocytes # (Auto) 0.8 x10^3/uL (0.0-1.1) Eosinophils # (Auto) 0.3 x10^3/uL (0.0-0.7) Basophils # (Auto) 0.1 x10^3/uL (0.0-0.2) Sodium Level 138 mmol/L (136-145) Potassium Level 3.8 mmol/L (3.5-5.1) Chloride Level 102 mmol/L (98-107) Carbon Dioxide Level 25 mmol/L (21-32) Anion Gap 11 (6-14) Blood Urea Nitrogen 11 mg/dL (8-26) Creatinine 1.1 mg/dL (0.7-1.3) Estimated GFR (Cockcroft-Gault) 68.1 BUN/Creatinine Ratio 10 (6-20) Glucose Level 101 mg/dL (70-99) Calcium Level 8.2 mg/dL (8.5-10.1) Total Bilirubin 0.5 mg/dL (0.2-1.0) Aspartate Amino Transf (AST/SGOT) 33 U/L (15-37) Alanine Aminotransferase (ALT/SGPT) 53 U/L (16-63) Alkaline Phosphatase 79 U/L (46-116) Total Protein 7.3 g/dL (6.4-8.2) Albumin 2.7 g/dL (3.4-5.0) Albumin/Globulin Ratio 0.6 (1.0-1.7) Vancomycin Level Trough 17.2 mcg/mL (10.0-20.0) Vancomycin Last Dose Date Vancomycin Last Dose Time 1500 Stool Occult Blood Negative (NEG) Medications Active Scripts Medications Dose Route/Sig Max Daily Dose Days Date Category Dose Instructions Voltaren (Diclofenac Sodium) 100 Gm Gel..gram. 2 Gm TP DAILY 01/20/20 Reported Bilat knees Zofran (Ondansetron Hcl) 4 Mg Tablet 1 Tab PO PRN Q4HRS PRN 01/20/20 Reported Acetaminophen 325 Mg Tablet 650 Mg PO PRN Q6HRS PRN 01/20/20 Reported Compazine (Prochlorperazine Maleate) 10 Mg Tablet 1 Tab PO Q6HRS 30 01/20/20 Reported Mylanta Tonight 800-270-80/10 (Calcium Carb/Mag Hydrox/Simeth) 355 Ml Oral.susp 30 Ml PO Q6HRS 01/20/20 Reported Anti-Fungal Cream (Miconazole Nitrate) 113 Gm Cream..g. 1 Vel TP Q8HRS 14 01/20/20 Reported Magnesium (Magnesium Oxide) 400 Mg Capsule 1 Cap PO DAILY 30 01/20/20 Reported Hydralazine Hcl 50 Mg Tablet 1 Tab PO TID 01/20/20 Reported Finasteride 5 Mg Tablet 1 Tab PO DAILY 01/20/20 Reported Colace (Docusate Sodium) 100 Mg Capsule 1 Cap PO BID 30 01/20/20 Reported Cardizem Tablet (Diltiazem Hcl) 60 Mg Tablet 60 Mg PO QID 01/20/20 Reported Digoxin 125 Mcg Tablet 125 Mcg PO DAILY 01/20/20 Reported Doxazosin Mesylate 2 Mg Tablet 1 Tab PO HS 01/20/20 Reported Dicyclomine Hcl 10 Mg/5 Ml Solution 10 Mg PO QID 01/20/20 Reported Atropine Sulfate 2 Ml Drops 2 Ml OP QID 01/20/20 Reported Aspirin 81 Mg Tab.chew 1 Tab PO DAILY 01/20/20 Reported Geodon (Ziprasidone Hcl) 40 Mg Capsule 40 Mg PEG BID 07/07/19 Reported Dulcolax (Bisacodyl) 10 Mg Supp.rect 1 Supp RC HS PRN 10 07/07/19 Reported Montelukast Sodium Tablet (Montelukast Sodium) 10 Mg Tablet 1 Tab PEG HS 07/22/18 Reported Clonidine Tts-1 (Clonidine) 1 Each Patch.tdwk 1 Patch TD Saturdays07/22/18 Reported Miralax (Polyethylene Glycol 3350) 17 Gm Powd.pack 1 Packet PEG DAILY 07/22/18 Reported Nutren (Nutritional Supplement) 1,000 Ml Liquid 250 Ml PEG DAY 07/22/18 Reported Magnesium Oxide 400 Mg Tablet 1 Tab PO BID 07/22/18 Reported Carbamazepine 200 Mg/10 Ml Oral.susp 300 Mg PEG HS 07/22/18 Reported 15 ml Carbamazepine 200 Mg/10 Ml Oral.susp 200 Mg PEG BIDACBL 07/22/18 Reported 10 ml Impression . IMPRESSION: 1. Abnormal chest x-ray secondary to aspiration pneumonia/pneumonitis. 2. Aspiration pneumonia/pneumonitis. 3. Nausea, vomiting? etiology. 4. Dislodged gastrostomy tube. 5. Anemia, ? gastrointestinal bleeding. Plan . PLAN AND RECOMMENDATIONS: 1. Titrate FiO2 to keep O2 saturation 92%. 2. Elevate head of bed. 3. The patient is n.p.o. 4. GI is consulted. 5. cont Protonix 6. Continue antibiotic per ID. 7. await transfer to [facility] for g tube placement 8. The findings and recommendations were discussed with RN. TREY CONCEPCION MD Jan 22, 2020 10:41
[2020-01-22] MEDS: AMINO AC 3%/ELECTROLYTE/GLYCER 1,000 ML IV SCH (11:20)
--- NOTE | 2020-01-22 11:27 | PDOC ---
Infectious Disease Note Subjective Subjective waiting for transfer to [facility] for Vijay-wade feeding tube replacement Patient feeling alright this morning Looking forward to [employer] playing soon Denies pain/SOA No fevers PPN Room air ROS ROS as mentioned above Vital Sign Vital Signs Vital Signs Date Time Temp Pulse Resp B/P (MAP) Pulse Ox O2 Delivery O2 Flow Rate FiO2 01/22/20 08:00 Room Air 01/22/20 07:59 98.4 60 18 106/46 (66) 93 98.4 Physical Exam PHYSICAL EXAM GENERAL: Propped up in bed, alert in NAD HEENT: Pupils equal and reactive. He has normal conjunctivae. Oral cavity: Pharynx was clear. Questionable dentition. NECK: Supple, no JVD. LUNGS: Decreased in the bases. No rhonchi. HEART: S1, S2. ABDOMEN: Mildly distended. soft, nontender. Vijay button out EXTREMITIES: No clubbing or cyanosis. No gross edema. SKIN: Warm to touch without signs of rash. NEUROLOGIC: He answers questions, moves extremities. SKIN: Warm to touch without signs of rash. PIV Labs Lab Laboratory Tests Test 01/21/20 17:03 01/22/20 02:45 01/22/20 07:30 Urine Collection Type Unknown Urine Color Yellow Urine Clarity Clear Urine pH 7.5 (<5.0-8.0) Urine Specific [place] 1.020 (1.000-1.030) Urine Protein Negative mg/dL (NEG-TRACE) Urine Glucose (UA) Negative mg/dL (NEG) Urine Ketones (Stick) Trace mg/dL (NEG) Urine Blood Negative (NEG) Urine Nitrite Negative (NEG) Urine Bilirubin Negative (NEG) Urine Urobilinogen Dipstick 0.2 mg/dL (0.2 mg/dL) Urine Leukocyte Esterase Negative (NEG) Urine RBC Rare /HPF (0-2) Urine WBC Occ /HPF (0-4) Urine Squamous Epithelial Cells Few /LPF Urine Bacteria 0 /HPF (0-FEW) White Blood Count 9.5 x10^3/uL (4.0-11.0) Red Blood Count 3.19 x10^6/uL (4.30-5.70) Hemoglobin 9.4 g/dL (13.0-17.5) Hematocrit 27.6 % (39.0-53.0) Mean Corpuscular Volume 87 fL (79-100) Mean Corpuscular Hemoglobin 29 pg (25-35) Mean Corpuscular Hemoglobin Concent 34 g/dL (31-37) Red Cell Distribution Width 16.7 % (11.5-14.5) Platelet Count 388 x10^3/uL (140-400) Neutrophils (%) (Auto) 77 % (31-73) Lymphocytes (%) (Auto) 11 % (24-48) Monocytes (%) (Auto) 8 % (0-9) Eosinophils (%) (Auto) 3 % (0-3) Basophils (%) (Auto) 1 % (0-3) Neutrophils # (Auto) 7.3 x10^3/uL (1.8-7.7) Lymphocytes # (Auto) 1.1 x10^3/uL (1.0-4.8) Monocytes # (Auto) 0.8 x10^3/uL (0.0-1.1) Eosinophils # (Auto) 0.3 x10^3/uL (0.0-0.7) Basophils # (Auto) 0.1 x10^3/uL (0.0-0.2) Sodium Level 138 mmol/L (136-145) Potassium Level 3.8 mmol/L (3.5-5.1) Chloride Level 102 mmol/L (98-107) Carbon Dioxide Level 25 mmol/L (21-32) Anion Gap 11 (6-14) Blood Urea Nitrogen 11 mg/dL (8-26) Creatinine 1.1 mg/dL (0.7-1.3) Estimated GFR (Cockcroft-Gault) 68.1 BUN/Creatinine Ratio 10 (6-20) Glucose Level 101 mg/dL (70-99) Calcium Level 8.2 mg/dL (8.5-10.1) Total Bilirubin 0.5 mg/dL (0.2-1.0) Aspartate Amino Transf (AST/SGOT) 33 U/L (15-37) Alanine Aminotransferase (ALT/SGPT) 53 U/L (16-63) Alkaline Phosphatase 79 U/L (46-116) Total Protein 7.3 g/dL (6.4-8.2) Albumin 2.7 g/dL (3.4-5.0) Albumin/Globulin Ratio 0.6 (1.0-1.7) Vancomycin Level Trough 17.2 mcg/mL (10.0-20.0) Vancomycin Last Dose Date Vancomycin Last Dose Time 1500 Stool Occult Blood Negative (NEG) Micro Microbiology 01/20/20 Blood Culture - Preliminary, Resulted NO GROWTH AFTER 1 DAY Objective Assessment Leukocytosis - improved Suspected or possible aspiration pneumonia. Mental retardation. Dislodged Vijay-Wade tube. currently on PPN History of recurrent vomiting, constipation, ileus. Plan Plan of Care Vanc and Zosyn Trough 17.2 Monitor labs BC neg to date Await transfer D/w nursing Much better. D/w sister Attending Co-Sign Attending Co-Sign The patient was seen and interviewed as well as examined at the bedside. The chart was reviewed. The case was discussed. Agree with the plan of care. SUSAN CUADRA APRN Jan 22, 2020 11:27 BENITO LARSEN MD Jan 22, 2020 16:09
--- NOTE | 2020-01-22 11:53 | PDOC ---
GENERAL General: Patient examined chart reviewed seen with another brother at bedside this morning. That brother is understanding and tells me that he and his family just want the patient to be cared for as smoothly as possible. Patient was COVID tested yesterday and will not be able to transfer anywhere until that is negative. He still coughing vigorously does have a history of aspiration pneumonia. He has bilateral pneumonitis and is on aspiration pneumonia treatment seems to be responding well. I had a lengthy conversation with brother Geo yesterday who is his medical DURABLE POWER OF SOCIAL MEDIA EXECUTIVE and with his brother this morning. They are willing to speak with our gastroenterology team about putting in a temporary PEG and then looking at other options for Anuel when that is more available. We will reconsult GI to come and visit with them tomorrow morning. Continue current management otherwise. We appreciate subspecialty support. Total time today is 30 minutes with greater than 50% in counseling and coordination of care most of which in discussion with patient family and patient Problems: (1) Developmental delay (2) Dislodged gastrostomy tube (3) Aspiration pneumonia VITAL SIGNS Vital Signs/I&O: Vital Signs Date Time Temp Pulse Resp B/P (MAP) Pulse Ox O2 Delivery O2 Flow Rate FiO2 01/22/20 08:00 Room Air 01/22/20 07:59 98.4 60 18 106/46 (66) 93 98.4 I & O 01/21/20 01/21/20 01/22/20 15:00 23:00 07:00 Intake Total 0 ml Output Total 250 ml Balance -250 ml In general patient is looking stronger this morning pleasant appropriately interactive at his baseline in no acute distress HEENT exam is unremarkable for acute abnormality Chest is clear to auscultation though diminished air entry throughout no crackles or wheezes are noted Heart S1-S2 normal regular rate and rhythm no murmurs or gallops are noted Abdomen soft nontender nondistended no masses organomegaly noted Extremity exam is unremarkable for acute abnormality ALLERGIES Allergies: Allergies Coded Allergies Type Severity Reaction Last Updated Verified No Known Drug Allergies 01/12/18 No MEDS Medications: Current Medications Medications (Trade) Dose Ordered Sig/Spencer Start Time Stop Time Status Last Admin Dose Admin Acetaminophen (Tylenol Supp) 650 mg PRN Q6HRS PRN 01/21/20 12:30 Amino Acids/ Glycerin/ Electrolytes 1,000 ml @ 75 mls/hr [id number] 01/20/20 20:30 01/22/20 11:20 Clindamycin Phosphate 50 ml @ 100 mls/hr 1X ONCE 01/20/20 13:15 01/20/20 13:44 DC 01/20/20 13:50 Info (CONTRAST GIVEN -- Rx MONITORING) 1 each PRN DAILY PRN 01/20/20 11:45 01/22/20 11:44 DC Iohexol (Omnipaque 300 Mg/ml) 75 ml 1X ONCE 01/20/20 11:30 01/20/20 11:32 DC 01/20/20 11:54 Ondansetron HCl (Zofran) 4 mg 1X ONCE 01/20/20 11:45 01/20/20 11:46 DC 01/20/20 12:01 Pantoprazole Sodium (PROTONIX VIAL for IV PUSH) 40 mg DAILYAC 01/21/20 11:15 01/22/20 07:47 Pantoprazole Sodium (Protonix) 40 mg 1X ONCE 01/20/20 14:45 01/20/20 14:52 DC Piperacillin Sod/ Tazobactam Sod (Zosyn Per Pharmacy) 1 each PRN DAILY PRN 01/20/20 13:15 Piperacillin Sod/ Tazobactam Sod 3.375 gm/Sodium Chloride 50 ml @ 100 mls/hr Q6HRS 01/20/20 19:30 01/22/20 11:19 Sodium Chloride 1,000 ml @ 1,000 mls/hr 1X ONCE 01/20/20 10:45 01/20/20 11:44 DC 01/20/20 10:52 Vancomycin HCl (Vanco Per Pharmacy) 1 each PRN DAILY PRN 01/20/20 13:15 01/22/20 03:37 Vancomycin HCl (Vancomycin Trough Level) 1 each 1X ONCE 01/22/20 02:30 01/22/20 02:31 DC 01/22/20 02:30 Vancomycin HCl 1.75 gm/Sodium Chloride 500 ml @ 250 mls/hr 1X ONCE 01/20/20 13:30 01/20/20 15:29 DC 01/20/20 14:44 Vancomycin HCl 1 gm/Sodium Chloride 250 ml @ 250 mls/hr Q12H 01/21/20 03:00 01/22/20 03:35 Current Medications Medications (Trade) Dose Ordered Sig/Psencer Route PRN Reason Start Time Stop Time Status Last Admin Dose Admin Vancomycin HCl (Vancomycin Trough Level) 1 each 1X ONCE MC 01/22/20 02:30 01/22/20 02:31 DC 01/22/20 02:30 LAB Lab: Laboratory Tests Test 01/21/20 17:03 01/22/20 02:45 01/22/20 07:30 Urine Collection Type Unknown Urine Color Yellow Urine Clarity Clear Urine pH 7.5 (<5.0-8.0) Urine Specific [place] 1.020 (1.000-1.030) Urine Protein Negative mg/dL (NEG-TRACE) Urine Glucose (UA) Negative mg/dL (NEG) Urine Ketones (Stick) Trace mg/dL (NEG) Urine Blood Negative (NEG) Urine Nitrite Negative (NEG) Urine Bilirubin Negative (NEG) Urine Urobilinogen Dipstick 0.2 mg/dL (0.2 mg/dL) Urine Leukocyte Esterase Negative (NEG) Urine RBC Rare /HPF (0-2) Urine WBC Occ /HPF (0-4) Urine Squamous Epithelial Cells Few /LPF Urine Bacteria 0 /HPF (0-FEW) White Blood Count 9.5 x10^3/uL (4.0-11.0) Red Blood Count 3.19 x10^6/uL (4.30-5.70) L Hemoglobin 9.4 g/dL (13.0-17.5) L Hematocrit 27.6 % (39.0-53.0) L Mean Corpuscular Volume 87 fL (79-100) Mean Corpuscular Hemoglobin 29 pg (25-35) Mean Corpuscular Hemoglobin Concent 34 g/dL (31-37) Red Cell Distribution Width 16.7 % (11.5-14.5) H Platelet Count 388 x10^3/uL (140-400) Neutrophils (%) (Auto) 77 % (31-73) H Lymphocytes (%) (Auto) 11 % (24-48) L Monocytes (%) (Auto) 8 % (0-9) Eosinophils (%) (Auto) 3 % (0-3) Basophils (%) (Auto) 1 % (0-3) Neutrophils # (Auto) 7.3 x10^3/uL (1.8-7.7) Lymphocytes # (Auto) 1.1 x10^3/uL (1.0-4.8) Monocytes # (Auto) 0.8 x10^3/uL (0.0-1.1) Eosinophils # (Auto) 0.3 x10^3/uL (0.0-0.7) Basophils # (Auto) 0.1 x10^3/uL (0.0-0.2) Sodium Level 138 mmol/L (136-145) Potassium Level 3.8 mmol/L (3.5-5.1) Chloride Level 102 mmol/L (98-107) Carbon Dioxide Level 25 mmol/L (21-32) Anion Gap 11 (6-14) Blood Urea Nitrogen 11 mg/dL (8-26) Creatinine 1.1 mg/dL (0.7-1.3) Estimated GFR (Cockcroft-Gault) 68.1 BUN/Creatinine Ratio 10 (6-20) Glucose Level 101 mg/dL (70-99) H Calcium Level 8.2 mg/dL (8.5-10.1) L Total Bilirubin 0.5 mg/dL (0.2-1.0) Aspartate Amino Transferase (AST) 33 U/L (15-37) Alanine Aminotransferase (ALT) 53 U/L (16-63) Alkaline Phosphatase 79 U/L (46-116) Total Protein 7.3 g/dL (6.4-8.2) Albumin 2.7 g/dL (3.4-5.0) L Albumin/Globulin Ratio 0.6 (1.0-1.7) L Vancomycin Level Trough 17.2 mcg/mL (10.0-20.0) Vancomycin Last Dose Date Vancomycin Last Dose Time 1500 Stool Occult Blood Negative (NEG) Laboratory Tests 01/22/20 02:45 Laboratory Tests 01/22/20 02:45 IMAGING Imaging: PATIENT: BARB DEVI ACCOUNT: [id number] : 1960 LOCATION: [address] [place] [address] AGE: 59 SEX: M EXAM STATUS: ADM IN ORD. PHYSICIAN: KARINA YA MD REASON: aspiration pneumonia follow up PROCEDURE: PORTABLE CHEST 1V AP portable chest 01/21/2020. Reason for exam: Follow-up aspiration pneumonia. Comparison is made with an exam of 07/10/2019. Depth of inspiration is fairly shallow. There is suggestion of patchy infiltrate in the mid and lower right lung and retrocardiac left lower lobe. At least some of this appears to have been present previously. No large area of consolidation or pleural fluid is seen. The heart does not appear enlarged. IMPRESSION: Findings suggest patchy bibasilar infiltrates, although some of the abnormalities made be pre-existing. Electronically signed by: Cliff Cates Jr., MD (01/21/2020 2:22 PM) [id number] ASSESSMENT & PLAN A&P Plan as noted above This note was created using [employer] and may have omissions and/or errors due to the nature of real-time voice final inspector balance wheel. Justicifation of Admission Dx: Justifications for Admission: Justification of Admission Dx: Yes Respiratory Failure: Airway Obstruction KARINA YA MD Jan 22, 2020 11:53
[2020-01-22 11:59] VITALS: BP 156/72
--- NOTE | 2020-01-22 12:13 | PDOC ---
G I PROGRESS NOTE Subjective Sleeping. Did not awaken. Objective Others' notes reviewed. Physical Exam No PE. Review of Relevant I have reviewed the following items milan (where applicable) has been applied. Labs Laboratory Tests Test 01/21/20 02:45 01/21/20 17:03 01/22/20 02:45 01/22/20 07:30 White Blood Count 10.8 x10^3/uL (4.0-11.0) 9.5 x10^3/uL (4.0-11.0) Red Blood Count 2.34 x10^6/uL (4.30-5.70) 3.19 x10^6/uL (4.30-5.70) Hemoglobin 7.0 g/dL (13.0-17.5) 9.4 g/dL (13.0-17.5) Hematocrit 20.8 % (39.0-53.0) 27.6 % (39.0-53.0) Mean Corpuscular Volume 89 fL (79-100) 87 fL (79-100) Mean Corpuscular Hemoglobin 30 pg (25-35) 29 pg (25-35) Mean Corpuscular Hemoglobin Concent 34 g/dL (31-37) 34 g/dL (31-37) Red Cell Distribution Width 17.1 % (11.5-14.5) 16.7 % (11.5-14.5) Platelet Count 343 x10^3/uL (140-400) 388 x10^3/uL (140-400) Neutrophils (%) (Auto) 81 % (31-73) 77 % (31-73) Lymphocytes (%) (Auto) 10 % (24-48) 11 % (24-48) Monocytes (%) (Auto) 6 % (0-9) 8 % (0-9) Eosinophils (%) (Auto) 2 % (0-3) 3 % (0-3) Basophils (%) (Auto) 1 % (0-3) 1 % (0-3) Neutrophils # (Auto) 8.8 x10^3/uL (1.8-7.7) 7.3 x10^3/uL (1.8-7.7) Lymphocytes # (Auto) 1.0 x10^3/uL (1.0-4.8) 1.1 x10^3/uL (1.0-4.8) Monocytes # (Auto) 0.7 x10^3/uL (0.0-1.1) 0.8 x10^3/uL (0.0-1.1) Eosinophils # (Auto) 0.2 x10^3/uL (0.0-0.7) 0.3 x10^3/uL (0.0-0.7) Basophils # (Auto) 0.1 x10^3/uL (0.0-0.2) 0.1 x10^3/uL (0.0-0.2) Sodium Level 138 mmol/L (136-145) 138 mmol/L (136-145) Potassium Level 4.2 mmol/L (3.5-5.1) 3.8 mmol/L (3.5-5.1) Chloride Level 105 mmol/L (98-107) 102 mmol/L (98-107) Carbon Dioxide Level 25 mmol/L (21-32) 25 mmol/L (21-32) Anion Gap 8 (6-14) 11 (6-14) Blood Urea Nitrogen 20 mg/dL (8-26) 11 mg/dL (8-26) Creatinine 0.9 mg/dL (0.7-1.3) 1.1 mg/dL (0.7-1.3) Estimated GFR (Cockcroft-Gault) 85.8 68.1 BUN/Creatinine Ratio 22 (6-20) 10 (6-20) Glucose Level 92 mg/dL (70-99) 101 mg/dL (70-99) Lactic Acid Level 0.6 mmol/L (0.4-2.0) Calcium Level 7.5 mg/dL (8.5-10.1) 8.2 mg/dL (8.5-10.1) Total Bilirubin 0.3 mg/dL (0.2-1.0) 0.5 mg/dL (0.2-1.0) Aspartate Amino Transf (AST/SGOT) 25 U/L (15-37) 33 U/L (15-37) Alanine Aminotransferase (ALT/SGPT) 26 U/L (16-63) 53 U/L (16-63) Alkaline Phosphatase 66 U/L (46-116) 79 U/L (46-116) Total Protein 5.9 g/dL (6.4-8.2) 7.3 g/dL (6.4-8.2) Albumin 2.3 g/dL (3.4-5.0) 2.7 g/dL (3.4-5.0) Albumin/Globulin Ratio 0.6 (1.0-1.7) 0.6 (1.0-1.7) Procalcitonin < 0.10 ng/mL (0.00-0.10) Urine Collection Type Unknown Urine Color Yellow Urine Clarity Clear Urine pH 7.5 (<5.0-8.0) Urine Specific [place] 1.020 (1.000-1.030) Urine Protein Negative mg/dL (NEG-TRACE) Urine Glucose (UA) Negative mg/dL (NEG) Urine Ketones (Stick) Trace mg/dL (NEG) Urine Blood Negative (NEG) Urine Nitrite Negative (NEG) Urine Bilirubin Negative (NEG) Urine Urobilinogen Dipstick 0.2 mg/dL (0.2 mg/dL) Urine Leukocyte Esterase Negative (NEG) Urine RBC Rare /HPF (0-2) Urine WBC Occ /HPF (0-4) Urine Squamous Epithelial Cells Few /LPF Urine Bacteria 0 /HPF (0-FEW) Vancomycin Level Trough 17.2 mcg/mL (10.0-20.0) Vancomycin Last Dose Date Vancomycin Last Dose Time 1500 Stool Occult Blood Negative (NEG) Laboratory Tests Test 01/21/20 17:03 01/22/20 02:45 01/22/20 07:30 Urine Collection Type Unknown Urine Color Yellow Urine Clarity Clear Urine pH 7.5 (<5.0-8.0) Urine Specific [place] 1.020 (1.000-1.030) Urine Protein Negative mg/dL (NEG-TRACE) Urine Glucose (UA) Negative mg/dL (NEG) Urine Ketones (Stick) Trace mg/dL (NEG) Urine Blood Negative (NEG) Urine Nitrite Negative (NEG) Urine Bilirubin Negative (NEG) Urine Urobilinogen Dipstick 0.2 mg/dL (0.2 mg/dL) Urine Leukocyte Esterase Negative (NEG) Urine RBC Rare /HPF (0-2) Urine WBC Occ /HPF (0-4) Urine Squamous Epithelial Cells Few /LPF Urine Bacteria 0 /HPF (0-FEW) White Blood Count 9.5 x10^3/uL (4.0-11.0) Red Blood Count 3.19 x10^6/uL (4.30-5.70) Hemoglobin 9.4 g/dL (13.0-17.5) Hematocrit 27.6 % (39.0-53.0) Mean Corpuscular Volume 87 fL (79-100) Mean Corpuscular Hemoglobin 29 pg (25-35) Mean Corpuscular Hemoglobin Concent 34 g/dL (31-37) Red Cell Distribution Width 16.7 % (11.5-14.5) Platelet Count 388 x10^3/uL (140-400) Neutrophils (%) (Auto) 77 % (31-73) Lymphocytes (%) (Auto) 11 % (24-48) Monocytes (%) (Auto) 8 % (0-9) Eosinophils (%) (Auto) 3 % (0-3) Basophils (%) (Auto) 1 % (0-3) Neutrophils # (Auto) 7.3 x10^3/uL (1.8-7.7) Lymphocytes # (Auto) 1.1 x10^3/uL (1.0-4.8) Monocytes # (Auto) 0.8 x10^3/uL (0.0-1.1) Eosinophils # (Auto) 0.3 x10^3/uL (0.0-0.7) Basophils # (Auto) 0.1 x10^3/uL (0.0-0.2) Sodium Level 138 mmol/L (136-145) Potassium Level 3.8 mmol/L (3.5-5.1) Chloride Level 102 mmol/L (98-107) Carbon Dioxide Level 25 mmol/L (21-32) Anion Gap 11 (6-14) Blood Urea Nitrogen 11 mg/dL (8-26) Creatinine 1.1 mg/dL (0.7-1.3) Estimated GFR (Cockcroft-Gault) 68.1 BUN/Creatinine Ratio 10 (6-20) Glucose Level 101 mg/dL (70-99) Calcium Level 8.2 mg/dL (8.5-10.1) Total Bilirubin 0.5 mg/dL (0.2-1.0) Aspartate Amino Transf (AST/SGOT) 33 U/L (15-37) Alanine Aminotransferase (ALT/SGPT) 53 U/L (16-63) Alkaline Phosphatase 79 U/L (46-116) Total Protein 7.3 g/dL (6.4-8.2) Albumin 2.7 g/dL (3.4-5.0) Albumin/Globulin Ratio 0.6 (1.0-1.7) Vancomycin Level Trough 17.2 mcg/mL (10.0-20.0) Vancomycin Last Dose Date Vancomycin Last Dose Time 1500 Stool Occult Blood Negative (NEG) Microbiology 01/20/20 Blood Culture - Preliminary, Resulted NO GROWTH AFTER 1 DAY Vitals/I & O Vital Sign - Last 24 Hours 01/21/20 01/21/20 01/21/20 01/21/20 15:29 16:11 16:30 17:30 Temp 98.0 98.0 98.2 97.6 98.0 98.0 98.2 97.6 Pulse 87 87 84 90 Resp 20 20 20 20 B/P (MAP) 129/54 (79) 129/54 147/66 137/64 O2 Delivery Room Air 01/21/20 01/21/20 01/21/20 01/21/20 18:30 19:00 19:20 20:30 Temp 98.0 98.3 98.3 98.0 98.3 98.3 Pulse 88 91 91 Resp 20 18 B/P (MAP) 139/68 142/60 (87) 142/60 Pulse Ox 94 O2 Delivery Room Air Room Air 01/21/20 01/22/20 01/22/20 01/22/20 23:00 03:00 07:59 08:00 Temp 97.9 98.1 98.4 97.9 98.1 98.4 Pulse 83 85 60 Resp 18 18 18 B/P (MAP) 139/69 (92) 137/66 (89) 106/46 (66) Pulse Ox 95 96 93 O2 Delivery Room Air Room Air Room Air Room Air Intake and Output 01/21/20 01/21/20 01/22/20 15:00 23:00 07:00 Intake Total 0 ml Output Total 250 ml Balance -250 ml Problem List Problems Medical Problems: (1) GI bleed Status: Acute (2) Nausea & vomiting Status: Acute Assessment Displaced LATASHA-PACE tube. Has been an issue in the past and we have told family before this admission we do not place these. Plan of Care Note Transfer? Has been to [facility] and before. Justicifation of Admission Dx: Justifications for Admission: Justification of Admission Dx: Yes Respiratory Failure: Airway Obstruction THALIA GARDNER MD Jan 22, 2020 12:13
[2020-01-22 15:59] VITALS: BP 163/66
[2020-01-22 19:00] VITALS: BP 155/74
[2020-01-22 23:06] VITALS: BP 154/79
[2020-01-23] VITALS (13 sets, daily range): BP systolic 154–187; BP diastolic 68–89
[2020-01-23] MEDS: PIPERACILLIN/TAZOBACTAM 3.375 GM in IV NORMAL SALINE 50ML 50 ML IV SCH ×5 (00:20→23:52)
[2020-01-23] MEDS: VANCOMYCIN 1 GM in IV NORMAL SALINE 250ML 250 ML IV SCH ×2 (02:27→15:34)
[2020-01-23] MEDS: AMINO AC 3%/ELECTROLYTE/GLYCER 1,000 ML IV SCH ×2 (02:27→20:56)
[2020-01-23 05:16] LABS: BASO # 0.1 x10^3/uL (0.0-0.2); BASO % 1 % (0-3); EOS # 0.2 x10^3/uL (0.0-0.7); EOS % 2 % (0-3); HEMATOCRIT 28.5 % (39.0-53.0); HEMOGLOBIN 9.7 g/dL (13.0-17.5); LYMPH % 14 % (24-48); MEAN CORPUSCULAR HEMOGLOBIN 29 pg (25-35); MEAN CORPUSCULAR HGB CONC 34 g/dL (31-37); MEAN CORPUSCULAR VOLUME 86 fL (79-100); MONO # 0.7 x10^3/uL (0.0-1.1); MONO % 10 % (0-9); NEUT # 5.1 x10^3/uL (1.8-7.7); NEUT % 73 % (31-73); PLATELET COUNT 375 x10^3/uL (140-400); RED BLOOD COUNT 3.32 x10^6/uL (4.30-5.70); RED CELL DISTRIBUTION WIDTH 16.6 % (11.5-14.5); WHITE BLOOD COUNT 7.1 x10^3/uL (4.0-11.0)
[2020-01-23 05:42] LABS: ALBUMIN 2.4 g/dL (3.4-5.0); ALBUMIN/GLOBULIN RATIO 0.5 (1.0-1.7); CALCIUM 8.2 mg/dL (8.5-10.1); CREATININE 0.9 mg/dL (0.7-1.3); GFR 85.8; POTASSIUM 3.7 mmol/L (3.5-5.1); TOTAL BILIRUBIN 0.2 mg/dL (0.2-1.0); TOTAL PROTEIN 6.8 g/dL (6.4-8.2)
--- NOTE | 2020-01-23 06:25 | EKG ---
[facility] [address] [place] [address] Test Date: 2020-01-20 Test Time: 10:46:50 Pat Name: BARB DEVI Department: Room: Gender: M Director Of Group Sales: : 1960 Requested By: MIKY SHIRLEY Order Number: [id number] Reading MD: Measurements Intervals [place] Rate: 109 P: 0 CO: 152 QRS: 16 QRSD: 86 T: 64 QT: 290 QTc: 392 Interpretive Statements SINUS TACHYCARDIA NO SPECIFIC ECG ABNORMALITIES RI6.01 No previous ECG available for comparison
--- NOTE | 2020-01-23 08:31 | PDOC ---
PULMONARY PROGRESS NOTES Subjective on ra answer some Qs, no sob, no cough Vitals Vital Signs Date Time Temp Pulse Resp B/P (MAP) Pulse Ox O2 Delivery O2 Flow Rate FiO2 01/23/20 03:07 97.7 78 20 154/78 (103) 97 Room Air 97.7 General: Alert, No acute distress HEENT: Other (nc at perrl) Lungs: Clear, Other Cardiovascular: S1, S2 Abdomen: Soft, Non-tender Neuro Exam: Alert Extremities: No Edema Skin: Warm Labs Laboratory Tests Test 01/21/20 15:30 01/21/20 17:03 01/22/20 02:45 01/22/20 07:30 Coronavirus (COVID-19)(PCR) Negative (NEGATIVE) Urine Collection Type Unknown Urine Color Yellow Urine Clarity Clear Urine pH 7.5 (<5.0-8.0) Urine Specific [place] 1.020 (1.000-1.030) Urine Protein Negative mg/dL (NEG-TRACE) Urine Glucose (UA) Negative mg/dL (NEG) Urine Ketones (Stick) Trace mg/dL (NEG) Urine Blood Negative (NEG) Urine Nitrite Negative (NEG) Urine Bilirubin Negative (NEG) Urine Urobilinogen Dipstick 0.2 mg/dL (0.2 mg/dL) Urine Leukocyte Esterase Negative (NEG) Urine RBC Rare /HPF (0-2) Urine WBC Occ /HPF (0-4) Urine Squamous Epithelial Cells Few /LPF Urine Bacteria 0 /HPF (0-FEW) White Blood Count 9.5 x10^3/uL (4.0-11.0) Red Blood Count 3.19 x10^6/uL (4.30-5.70) Hemoglobin 9.4 g/dL (13.0-17.5) Hematocrit 27.6 % (39.0-53.0) Mean Corpuscular Volume 87 fL (79-100) Mean Corpuscular Hemoglobin 29 pg (25-35) Mean Corpuscular Hemoglobin Concent 34 g/dL (31-37) Red Cell Distribution Width 16.7 % (11.5-14.5) Platelet Count 388 x10^3/uL (140-400) Neutrophils (%) (Auto) 77 % (31-73) Lymphocytes (%) (Auto) 11 % (24-48) Monocytes (%) (Auto) 8 % (0-9) Eosinophils (%) (Auto) 3 % (0-3) Basophils (%) (Auto) 1 % (0-3) Neutrophils # (Auto) 7.3 x10^3/uL (1.8-7.7) Lymphocytes # (Auto) 1.1 x10^3/uL (1.0-4.8) Monocytes # (Auto) 0.8 x10^3/uL (0.0-1.1) Eosinophils # (Auto) 0.3 x10^3/uL (0.0-0.7) Basophils # (Auto) 0.1 x10^3/uL (0.0-0.2) Sodium Level 138 mmol/L (136-145) Potassium Level 3.8 mmol/L (3.5-5.1) Chloride Level 102 mmol/L (98-107) Carbon Dioxide Level 25 mmol/L (21-32) Anion Gap 11 (6-14) Blood Urea Nitrogen 11 mg/dL (8-26) Creatinine 1.1 mg/dL (0.7-1.3) Estimated GFR (Cockcroft-Gault) 68.1 BUN/Creatinine Ratio 10 (6-20) Glucose Level 101 mg/dL (70-99) Calcium Level 8.2 mg/dL (8.5-10.1) Total Bilirubin 0.5 mg/dL (0.2-1.0) Aspartate Amino Transf (AST/SGOT) 33 U/L (15-37) Alanine Aminotransferase (ALT/SGPT) 53 U/L (16-63) Alkaline Phosphatase 79 U/L (46-116) Total Protein 7.3 g/dL (6.4-8.2) Albumin 2.7 g/dL (3.4-5.0) Albumin/Globulin Ratio 0.6 (1.0-1.7) Vancomycin Level Trough 17.2 mcg/mL (10.0-20.0) Vancomycin Last Dose Date Vancomycin Last Dose Time 1500 Stool Occult Blood Negative (NEG) Test 01/23/20 04:00 White Blood Count 7.1 x10^3/uL (4.0-11.0) Red Blood Count 3.32 x10^6/uL (4.30-5.70) Hemoglobin 9.7 g/dL (13.0-17.5) Hematocrit 28.5 % (39.0-53.0) Mean Corpuscular Volume 86 fL (79-100) Mean Corpuscular Hemoglobin 29 pg (25-35) Mean Corpuscular Hemoglobin Concent 34 g/dL (31-37) Red Cell Distribution Width 16.6 % (11.5-14.5) Platelet Count 375 x10^3/uL (140-400) Neutrophils (%) (Auto) 73 % (31-73) Lymphocytes (%) (Auto) 14 % (24-48) Monocytes (%) (Auto) 10 % (0-9) Eosinophils (%) (Auto) 2 % (0-3) Basophils (%) (Auto) 1 % (0-3) Neutrophils # (Auto) 5.1 x10^3/uL (1.8-7.7) Lymphocytes # (Auto) 1.0 x10^3/uL (1.0-4.8) Monocytes # (Auto) 0.7 x10^3/uL (0.0-1.1) Eosinophils # (Auto) 0.2 x10^3/uL (0.0-0.7) Basophils # (Auto) 0.1 x10^3/uL (0.0-0.2) Sodium Level 137 mmol/L (136-145) Potassium Level 3.7 mmol/L (3.5-5.1) Chloride Level 101 mmol/L (98-107) Carbon Dioxide Level 25 mmol/L (21-32) Anion Gap 11 (6-14) Blood Urea Nitrogen 12 mg/dL (8-26) Creatinine 0.9 mg/dL (0.7-1.3) Estimated GFR (Cockcroft-Gault) 85.8 BUN/Creatinine Ratio 13 (6-20) Glucose Level 86 mg/dL (70-99) Calcium Level 8.2 mg/dL (8.5-10.1) Total Bilirubin 0.2 mg/dL (0.2-1.0) Aspartate Amino Transf (AST/SGOT) 24 U/L (15-37) Alanine Aminotransferase (ALT/SGPT) 38 U/L (16-63) Alkaline Phosphatase 73 U/L (46-116) Total Protein 6.8 g/dL (6.4-8.2) Albumin 2.4 g/dL (3.4-5.0) Albumin/Globulin Ratio 0.5 (1.0-1.7) Laboratory Tests Test 01/23/20 04:00 White Blood Count 7.1 x10^3/uL (4.0-11.0) Red Blood Count 3.32 x10^6/uL (4.30-5.70) Hemoglobin 9.7 g/dL (13.0-17.5) Hematocrit 28.5 % (39.0-53.0) Mean Corpuscular Volume 86 fL (79-100) Mean Corpuscular Hemoglobin 29 pg (25-35) Mean Corpuscular Hemoglobin Concent 34 g/dL (31-37) Red Cell Distribution Width 16.6 % (11.5-14.5) Platelet Count 375 x10^3/uL (140-400) Neutrophils (%) (Auto) 73 % (31-73) Lymphocytes (%) (Auto) 14 % (24-48) Monocytes (%) (Auto) 10 % (0-9) Eosinophils (%) (Auto) 2 % (0-3) Basophils (%) (Auto) 1 % (0-3) Neutrophils # (Auto) 5.1 x10^3/uL (1.8-7.7) Lymphocytes # (Auto) 1.0 x10^3/uL (1.0-4.8) Monocytes # (Auto) 0.7 x10^3/uL (0.0-1.1) Eosinophils # (Auto) 0.2 x10^3/uL (0.0-0.7) Basophils # (Auto) 0.1 x10^3/uL (0.0-0.2) Sodium Level 137 mmol/L (136-145) Potassium Level 3.7 mmol/L (3.5-5.1) Chloride Level 101 mmol/L (98-107) Carbon Dioxide Level 25 mmol/L (21-32) Anion Gap 11 (6-14) Blood Urea Nitrogen 12 mg/dL (8-26) Creatinine 0.9 mg/dL (0.7-1.3) Estimated GFR (Cockcroft-Gault) 85.8 BUN/Creatinine Ratio 13 (6-20) Glucose Level 86 mg/dL (70-99) Calcium Level 8.2 mg/dL (8.5-10.1) Total Bilirubin 0.2 mg/dL (0.2-1.0) Aspartate Amino Transf (AST/SGOT) 24 U/L (15-37) Alanine Aminotransferase (ALT/SGPT) 38 U/L (16-63) Alkaline Phosphatase 73 U/L (46-116) Total Protein 6.8 g/dL (6.4-8.2) Albumin 2.4 g/dL (3.4-5.0) Albumin/Globulin Ratio 0.5 (1.0-1.7) Medications Active Scripts Medications Dose Route/Sig Max Daily Dose Days Date Category Dose Instructions Voltaren (Diclofenac Sodium) 100 Gm Gel..gram. 2 Gm TP DAILY 30 01/20/20 Reported Bilat knees Zofran (Ondansetron Hcl) 4 Mg Tablet 1 Tab PO PRN Q4HRS PRN 01/20/20 Reported Acetaminophen 325 Mg Tablet 650 Mg PO PRN Q6HRS PRN 01/20/20 Reported Compazine (Prochlorperazine Maleate) 10 Mg Tablet 1 Tab PO Q6HRS 30 01/20/20 Reported Mylanta Tonight 800-270-80/10 (Calcium Carb/Mag Hydrox/Simeth) 355 Ml Oral.susp 30 Ml PO Q6HRS 01/20/20 Reported Anti-Fungal Cream (Miconazole Nitrate) 113 Gm Cream..g. 1 Vel TP Q8HRS 14 01/20/20 Reported Magnesium (Magnesium Oxide) 400 Mg Capsule 1 Cap PO DAILY 30 01/20/20 Reported Hydralazine Hcl 50 Mg Tablet 1 Tab PO TID 01/20/20 Reported Finasteride 5 Mg Tablet 1 Tab PO DAILY 01/20/20 Reported Colace (Docusate Sodium) 100 Mg Capsule 1 Cap PO BID 30 01/20/20 Reported Cardizem Tablet (Diltiazem Hcl) 60 Mg Tablet 60 Mg PO QID 01/20/20 Reported Digoxin 125 Mcg Tablet 125 Mcg PO DAILY 01/20/20 Reported Doxazosin Mesylate 2 Mg Tablet 1 Tab PO HS 01/20/20 Reported Dicyclomine Hcl 10 Mg/5 Ml Solution 10 Mg PO QID 01/20/20 Reported Atropine Sulfate 2 Ml Drops 2 Ml OP QID 01/20/20 Reported Aspirin 81 Mg Tab.chew 1 Tab PO DAILY 01/20/20 Reported Geodon (Ziprasidone Hcl) 40 Mg Capsule 40 Mg PEG BID 07/07/19 Reported Dulcolax (Bisacodyl) 10 Mg Supp.rect 1 Supp RC HS PRN 10 07/07/19 Reported Montelukast Sodium Tablet (Montelukast Sodium) 10 Mg Tablet 1 Tab PEG HS 07/22/18 Reported Clonidine Tts-1 (Clonidine) 1 Each Patch.tdwk 1 Patch TD Saturdays07/22/18 Reported Miralax (Polyethylene Glycol 3350) 17 Gm Powd.pack 1 Packet PEG DAILY 07/22/18 Reported Nutren (Nutritional Supplement) 1,000 Ml Liquid 250 Ml PEG DAY 07/22/18 Reported Magnesium Oxide 400 Mg Tablet 1 Tab PO BID 07/22/18 Reported Carbamazepine 200 Mg/10 Ml Oral.susp 300 Mg PEG HS 07/22/18 Reported 15 ml Carbamazepine 200 Mg/10 Ml Oral.susp 200 Mg PEG BIDACBL 07/22/18 Reported 10 ml Impression . IMPRESSION: 1. Abnormal chest x-ray secondary to aspiration pneumonia/pneumonitis. 2. Aspiration pneumonia/pneumonitis. 3. Nausea, vomiting? etiology. 4. Dislodged gastrostomy tube. 5. Anemia, ? gastrointestinal bleeding. Plan . PLAN AND RECOMMENDATIONS: 1. Titrate FiO2 to keep O2 saturation 92%. 2. Elevate head of bed. 3. The patient is n.p.o. 4. GI is consulted. 5. cont Protonix 6. Continue antibiotic per ID. 7. await transfer to [facility] for g tube placement 8. The findings and recommendations were discussed with NEETU. JESÚS MCKINNEY MD Jan 23, 2020 08:31
--- NOTE | 2020-01-23 09:03 | PDOC ---
PROGRESS NOTES History of Present Illness History of Present Illness Images: Images 1. Diffuse patchy airspace opacities identified in the partially visualized right middle lobe, left lingula and bibasilar lungs likely atelectasis or infiltrates or aspiration. Unchanged thickened appearance of the wall of the distal esophagus probably esophagitis. 2. Moderately distended urinary bladder, nonspecific similar to prior exam. 3. 1.5 cm hypodensity identified in the right lobe of the liver is unchanged, probably hemangioma. 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 Displaced VIJAY-PACE tube. // been an issue in the past and gi told family before this admission they not place these. VIJAY-PACE tubes not are not stocked at [facility]. Offered regular PEG tube family refused Plan IV antibiotics Duo nebs Oxygen PRN consulted GI I did call them to get a new feeding tube Home meds DVT prophylaxis Full code per his sister // is the POA 01/[address] [facility] 40 MIN PT EXAM, CHART REVIEW, > 50% OF TIME SPENT Vitals Vitals Vital Signs Date Time Temp Pulse Resp B/P (MAP) Pulse Ox O2 Delivery O2 Flow Rate FiO2 01/23/20 03:07 97.7 78 20 154/78 (103) 97 Room Air 97.7 Physical Exam Physical Exam GENERAL: Propped up in bed, alert in NAD HEENT: Pupils equal and reactive. He has normal conjunctivae. Oral cavity: Pharynx was clear. Questionable dentition. NECK: Supple, no JVD. LUNGS: Decreased in the bases. No rhonchi. HEART: S1, S2. ABDOMEN: Mildly distended. soft, nontender. Vijay button out EXTREMITIES: No clubbing or cyanosis. No gross edema. SKIN: Warm to touch without signs of rash. NEUROLOGIC: He answers questions, moves extremities. SKIN: Warm to touch without signs of rash. PIV General: Cooperative, No acute distress Lungs: Clear, Other Labs LABS Laboratory Tests Test 01/23/20 04:00 White Blood Count 7.1 x10^3/uL (4.0-11.0) Red Blood Count 3.32 x10^6/uL (4.30-5.70) Hemoglobin 9.7 g/dL (13.0-17.5) Hematocrit 28.5 % (39.0-53.0) Mean Corpuscular Volume 86 fL (79-100) Mean Corpuscular Hemoglobin 29 pg (25-35) Mean Corpuscular Hemoglobin Concent 34 g/dL (31-37) Red Cell Distribution Width 16.6 % (11.5-14.5) Platelet Count 375 x10^3/uL (140-400) Neutrophils (%) (Auto) 73 % (31-73) Lymphocytes (%) (Auto) 14 % (24-48) Monocytes (%) (Auto) 10 % (0-9) Eosinophils (%) (Auto) 2 % (0-3) Basophils (%) (Auto) 1 % (0-3) Neutrophils # (Auto) 5.1 x10^3/uL (1.8-7.7) Lymphocytes # (Auto) 1.0 x10^3/uL (1.0-4.8) Monocytes # (Auto) 0.7 x10^3/uL (0.0-1.1) Eosinophils # (Auto) 0.2 x10^3/uL (0.0-0.7) Basophils # (Auto) 0.1 x10^3/uL (0.0-0.2) Sodium Level 137 mmol/L (136-145) Potassium Level 3.7 mmol/L (3.5-5.1) Chloride Level 101 mmol/L (98-107) Carbon Dioxide Level 25 mmol/L (21-32) Anion Gap 11 (6-14) Blood Urea Nitrogen 12 mg/dL (8-26) Creatinine 0.9 mg/dL (0.7-1.3) Estimated GFR (Cockcroft-Gault) 85.8 BUN/Creatinine Ratio 13 (6-20) Glucose Level 86 mg/dL (70-99) Calcium Level 8.2 mg/dL (8.5-10.1) Total Bilirubin 0.2 mg/dL (0.2-1.0) Aspartate Amino Transf (AST/SGOT) 24 U/L (15-37) Alanine Aminotransferase (ALT/SGPT) 38 U/L (16-63) Alkaline Phosphatase 73 U/L (46-116) Total Protein 6.8 g/dL (6.4-8.2) Albumin 2.4 g/dL (3.4-5.0) Albumin/Globulin Ratio 0.5 (1.0-1.7) Assessment and Plan Assessmemt and Plan Problems Medical Problems: (1) GI bleed Status: Acute (2) Nausea & vomiting Status: Acute Comment Review of Relevant I have reviewed the following items milan (where applicable) has been applied. Labs Laboratory Tests Test 01/21/20 15:30 01/21/20 17:03 01/22/20 02:45 01/22/20 07:30 Coronavirus (COVID-19)(PCR) Negative (NEGATIVE) Urine Collection Type Unknown Urine Color Yellow Urine Clarity Clear Urine pH 7.5 (<5.0-8.0) Urine Specific [place] 1.020 (1.000-1.030) Urine Protein Negative mg/dL (NEG-TRACE) Urine Glucose (UA) Negative mg/dL (NEG) Urine Ketones (Stick) Trace mg/dL (NEG) Urine Blood Negative (NEG) Urine Nitrite Negative (NEG) Urine Bilirubin Negative (NEG) Urine Urobilinogen Dipstick 0.2 mg/dL (0.2 mg/dL) Urine Leukocyte Esterase Negative (NEG) Urine RBC Rare /HPF (0-2) Urine WBC Occ /HPF (0-4) Urine Squamous Epithelial Cells Few /LPF Urine Bacteria 0 /HPF (0-FEW) White Blood Count 9.5 x10^3/uL (4.0-11.0) Red Blood Count 3.19 x10^6/uL (4.30-5.70) Hemoglobin 9.4 g/dL (13.0-17.5) Hematocrit 27.6 % (39.0-53.0) Mean Corpuscular Volume 87 fL (79-100) Mean Corpuscular Hemoglobin 29 pg (25-35) Mean Corpuscular Hemoglobin Concent 34 g/dL (31-37) Red Cell Distribution Width 16.7 % (11.5-14.5) Platelet Count 388 x10^3/uL (140-400) Neutrophils (%) (Auto) 77 % (31-73) Lymphocytes (%) (Auto) 11 % (24-48) Monocytes (%) (Auto) 8 % (0-9) Eosinophils (%) (Auto) 3 % (0-3) Basophils (%) (Auto) 1 % (0-3) Neutrophils # (Auto) 7.3 x10^3/uL (1.8-7.7) Lymphocytes # (Auto) 1.1 x10^3/uL (1.0-4.8) Monocytes # (Auto) 0.8 x10^3/uL (0.0-1.1) Eosinophils # (Auto) 0.3 x10^3/uL (0.0-0.7) Basophils # (Auto) 0.1 x10^3/uL (0.0-0.2) Sodium Level 138 mmol/L (136-145) Potassium Level 3.8 mmol/L (3.5-5.1) Chloride Level 102 mmol/L (98-107) Carbon Dioxide Level 25 mmol/L (21-32) Anion Gap 11 (6-14) Blood Urea Nitrogen 11 mg/dL (8-26) Creatinine 1.1 mg/dL (0.7-1.3) Estimated GFR (Cockcroft-Gault) 68.1 BUN/Creatinine Ratio 10 (6-20) Glucose Level 101 mg/dL (70-99) Calcium Level 8.2 mg/dL (8.5-10.1) Total Bilirubin 0.5 mg/dL (0.2-1.0) Aspartate Amino Transf (AST/SGOT) 33 U/L (15-37) Alanine Aminotransferase (ALT/SGPT) 53 U/L (16-63) Alkaline Phosphatase 79 U/L (46-116) Total Protein 7.3 g/dL (6.4-8.2) Albumin 2.7 g/dL (3.4-5.0) Albumin/Globulin Ratio 0.6 (1.0-1.7) Vancomycin Level Trough 17.2 mcg/mL (10.0-20.0) Vancomycin Last Dose Date Vancomycin Last Dose Time 1500 Stool Occult Blood Negative (NEG) Test 01/23/20 04:00 White Blood Count 7.1 x10^3/uL (4.0-11.0) Red Blood Count 3.32 x10^6/uL (4.30-5.70) Hemoglobin 9.7 g/dL (13.0-17.5) Hematocrit 28.5 % (39.0-53.0) Mean Corpuscular Volume 86 fL (79-100) Mean Corpuscular Hemoglobin 29 pg (25-35) Mean Corpuscular Hemoglobin Concent 34 g/dL (31-37) Red Cell Distribution Width 16.6 % (11.5-14.5) Platelet Count 375 x10^3/uL (140-400) Neutrophils (%) (Auto) 73 % (31-73) Lymphocytes (%) (Auto) 14 % (24-48) Monocytes (%) (Auto) 10 % (0-9) Eosinophils (%) (Auto) 2 % (0-3) Basophils (%) (Auto) 1 % (0-3) Neutrophils # (Auto) 5.1 x10^3/uL (1.8-7.7) Lymphocytes # (Auto) 1.0 x10^3/uL (1.0-4.8) Monocytes # (Auto) 0.7 x10^3/uL (0.0-1.1) Eosinophils # (Auto) 0.2 x10^3/uL (0.0-0.7) Basophils # (Auto) 0.1 x10^3/uL (0.0-0.2) Sodium Level 137 mmol/L (136-145) Potassium Level 3.7 mmol/L (3.5-5.1) Chloride Level 101 mmol/L (98-107) Carbon Dioxide Level 25 mmol/L (21-32) Anion Gap 11 (6-14) Blood Urea Nitrogen 12 mg/dL (8-26) Creatinine 0.9 mg/dL (0.7-1.3) Estimated GFR (Cockcroft-Gault) 85.8 BUN/Creatinine Ratio 13 (6-20) Glucose Level 86 mg/dL (70-99) Calcium Level 8.2 mg/dL (8.5-10.1) Total Bilirubin 0.2 mg/dL (0.2-1.0) Aspartate Amino Transf (AST/SGOT) 24 U/L (15-37) Alanine Aminotransferase (ALT/SGPT) 38 U/L (16-63) Alkaline Phosphatase 73 U/L (46-116) Total Protein 6.8 g/dL (6.4-8.2) Albumin 2.4 g/dL (3.4-5.0) Albumin/Globulin Ratio 0.5 (1.0-1.7) Laboratory Tests Test 01/23/20 04:00 White Blood Count 7.1 x10^3/uL (4.0-11.0) Red Blood Count 3.32 x10^6/uL (4.30-5.70) Hemoglobin 9.7 g/dL (13.0-17.5) Hematocrit 28.5 % (39.0-53.0) Mean Corpuscular Volume 86 fL (79-100) Mean Corpuscular Hemoglobin 29 pg (25-35) Mean Corpuscular Hemoglobin Concent 34 g/dL (31-37) Red Cell Distribution Width 16.6 % (11.5-14.5) Platelet Count 375 x10^3/uL (140-400) Neutrophils (%) (Auto) 73 % (31-73) Lymphocytes (%) (Auto) 14 % (24-48) Monocytes (%) (Auto) 10 % (0-9) Eosinophils (%) (Auto) 2 % (0-3) Basophils (%) (Auto) 1 % (0-3) Neutrophils # (Auto) 5.1 x10^3/uL (1.8-7.7) Lymphocytes # (Auto) 1.0 x10^3/uL (1.0-4.8) Monocytes # (Auto) 0.7 x10^3/uL (0.0-1.1) Eosinophils # (Auto) 0.2 x10^3/uL (0.0-0.7) Basophils # (Auto) 0.1 x10^3/uL (0.0-0.2) Sodium Level 137 mmol/L (136-145) Potassium Level 3.7 mmol/L (3.5-5.1) Chloride Level 101 mmol/L (98-107) Carbon Dioxide Level 25 mmol/L (21-32) Anion Gap 11 (6-14) Blood Urea Nitrogen 12 mg/dL (8-26) Creatinine 0.9 mg/dL (0.7-1.3) Estimated GFR (Cockcroft-Gault) 85.8 BUN/Creatinine Ratio 13 (6-20) Glucose Level 86 mg/dL (70-99) Calcium Level 8.2 mg/dL (8.5-10.1) Total Bilirubin 0.2 mg/dL (0.2-1.0) Aspartate Amino Transf (AST/SGOT) 24 U/L (15-37) Alanine Aminotransferase (ALT/SGPT) 38 U/L (16-63) Alkaline Phosphatase 73 U/L (46-116) Total Protein 6.8 g/dL (6.4-8.2) Albumin 2.4 g/dL (3.4-5.0) Albumin/Globulin Ratio 0.5 (1.0-1.7) Microbiology 01/20/20 Blood Culture - Preliminary, Resulted NO GROWTH AFTER 2 DAYS Medications Current Medications Sodium Chloride 1,000 ml @ 1,000 mls/hr 1X ONCE IV Last administered on 01/20/20at 10:52; Start 01/20/20 at 10:45; Stop 01/20/20 at 11:44; Status DC Iohexol (Omnipaque 300 Mg/ml) 75 ml 1X ONCE IV Last administered on 01/20/20at 11:54; Start 01/20/20 at 11:30; Stop 01/20/20 at 11:32; Status DC Info (CONTRAST GIVEN -- Rx MONITORING) 1 each PRN DAILY PRN MC SEE COMMENTS; Start 01/20/20 at 11:45; Stop 01/22/20 at 11:44; Status DC Ondansetron HCl (Zofran) 4 mg 1X ONCE IVP Last administered on 01/20/20at 12:01; Start 01/20/20 at 11:45; Stop 01/20/20 at 11:46; Status DC Vancomycin HCl (Vanco Per Pharmacy) 1 each PRN DAILY PRN MC SEE COMMENTS Last administered on 01/22/20at 13:34; Start 01/20/20 at 13:15 Piperacillin Sod/ Tazobactam Sod (Zosyn Per Pharmacy) 1 each PRN DAILY PRN MC SEE COMMENTS; Start 01/20/20 at 13:15 Clindamycin Phosphate 50 ml @ 100 mls/hr 1X ONCE IV Last administered on 01/20/20at 13:50; Start 01/20/20 at 13:15; Stop 01/20/20 at 13:44; Status DC Vancomycin HCl 1.75 gm/Sodium Chloride 500 ml @ 250 mls/hr 1X ONCE IV Last administered on 01/20/20at 14:44; Start 01/20/20 at 13:30; Stop 01/20/20 at 15:29; Status DC Piperacillin Sod/ Tazobactam Sod 3.375 gm/Sodium Chloride 50 ml @ 100 mls/hr 1X ONCE IV Last administered on 01/20/20at 13:50; Start 01/20/20 at 13:30; Stop 01/20/20 at 13:59; Status DC Pantoprazole Sodium (Protonix) 40 mg 1X ONCE PO ; Start 01/20/20 at 14:45; Stop 01/20/20 at 14:52; Status DC Pantoprazole Sodium (PROTONIX VIAL for IV PUSH) 40 mg 1X ONCE IVP Last administered on 01/20/20at 15:02; Start 01/20/20 at 15:00; Stop 01/20/20 at 15:01; Status DC Piperacillin Sod/ Tazobactam Sod 3.375 gm/Sodium Chloride 50 ml @ 100 mls/hr Q6HRS IV Last administered on 01/23/20at 05:40; Start 01/20/20 at 19:30 Vancomycin HCl 1 gm/Sodium Chloride 250 ml @ 250 mls/hr Q12H IV Last administered on 01/23/20at 02:27; Start 01/21/20 at 03:00 Vancomycin HCl (Vancomycin Trough Level) 1 each 1X ONCE MC Last administered on 01/22/20at 02:30; Start 01/22/20 at 02:30; Stop 01/22/20 at 02:31; Status DC Amino Acids/ Glycerin/ Electrolytes 1,000 ml @ 75 mls/hr [id number] IV Last ad ministered on 01/23/20at 02:27; Start 01/20/20 at 20:30 Pantoprazole Sodium (PROTONIX VIAL for IV PUSH) 40 mg DAILYAC IVP Last a dministered on 01/22/20at 07:47; Start 01/21/20 at 11:15 Acetaminophen (Tylenol Supp) 650 mg PRN Q6HRS PRN SC MILD PAIN / TEMP > 100.3'F; Start 01/21/20 at 12:30 Active Scripts Active Reported Voltaren (Diclofenac Sodium) 100 Gm Gel..gram. 2 Gm TP DAILY 30 Days Bilat knees Zofran (Ondansetron Hcl) 4 Mg Tablet 1 Tab PO PRN Q4HRS PRN Acetaminophen 325 Mg Tablet 650 Mg PO PRN Q6HRS PRN Compazine (Prochlorperazine Maleate) 10 Mg Tablet 1 Tab PO Q6HRS 30 Days Mylanta Tonight 800-270-80/10 (Calcium Carb/Mag Hydrox/Simeth) 355 Ml Oral.susp 30 Ml PO Q6HRS Anti-Fungal Cream (Miconazole Nitrate) 113 Gm Cream..g. 1 Vel TP Q8HRS 14 Days Magnesium (Magnesium Oxide) 400 Mg Capsule 1 Cap PO DAILY 30 Days Hydralazine Hcl 50 Mg Tablet 1 Tab PO TID Finasteride 5 Mg Tablet 1 Tab PO DAILY Colace (Docusate Sodium) 100 Mg Capsule 1 Cap PO BID 30 Days Cardizem Tablet (Diltiazem Hcl) 60 Mg Tablet 60 Mg PO QID Digoxin 125 Mcg Tablet 125 Mcg PO DAILY Doxazosin Mesylate 2 Mg Tablet 1 Tab PO HS Dicyclomine Hcl 10 Mg/5 Ml Solution 10 Mg PO QID Atropine Sulfate 2 Ml Drops 2 Ml OP QID Aspirin 81 Mg Tab.chew 1 Tab PO DAILY Geodon (Ziprasidone Hcl) 40 Mg Capsule 40 Mg PEG BID Dulcolax (Bisacodyl) 10 Mg Supp.rect 1 Supp RC HS PRN 10 Days Montelukast Sodium Tablet (Montelukast Sodium) 10 Mg Tablet 1 Tab PEG HS Clonidine Tts-1 (Clonidine) 1 Each Patch.tdwk 1 Patch TD SATURDAYS Miralax (Polyethylene Glycol 3350) 17 Gm Powd.pack 1 Packet PEG DAILY Nutren (Nutritional Supplement) 1,000 Ml Liquid 250 Ml PEG Magnesium Oxide 400 Mg Tablet 1 Tab PO BID Carbamazepine 200 Mg/10 Ml Oral.susp 300 Mg PEG HS 15 ml Carbamazepine 200 Mg/10 Ml Oral.susp 200 Mg PEG BIDACBL 10 ml Vitals/I & O Vital Sign - Last 24 Hours 01/22/20 01/22/20 01/22/20 01/22/20 11:59 15:59 19:00 20:00 Temp 97.8 98.1 98.3 97.8 98.1 98.3 Pulse 82 79 83 Resp 20 20 B/P (MAP) 156/72 (100) 163/66 (98) 155/74 (101) Pulse Ox 93 97 95 O2 Delivery Room Air Room Air Room Air Room Air 01/22/20 01/23/20 23:06 03:07 Temp 97.3 97.7 97.3 97.7 Pulse 86 78 Resp 20 20 B/P (MAP) 154/79 (104) 154/78 (103) Pulse Ox 95 97 O2 Delivery Room Air Room Air Intake and Output 01/22/20 01/22/20 01/23/20 15:00 23:00 07:00 Intake Total 50 ml 300 ml Output Total 200 ml Balance -150 ml 300 ml Justicifation of Admission Dx: Justifications for Admission: Justification of Admission Dx: Yes Respiratory Failure: Airway Obstruction IRON NEGRON MD Jan 23, 2020 09:03
[2020-01-23] MEDS: PANTOPRAZOLE IV PUSH 40 MG VIAL. IVP SCH (09:18)
--- NOTE | 2020-01-23 09:30 | NUR ---
Spoke with AARON Lobato regarding transfer to [facility] or [facility] possibly today
--- NOTE | 2020-01-23 09:45 | PDOC ---
Subjective: Subjective: No vomiting. Stooled yesterday. Vaguely describes soem lower abdominal discomfort - sister says has not complained of this before now. No bleeding. Sister spoke w/ another sibling - preference is to transfer for LATASHA-PACE but if unable to transfer today would consent to temporary PEG placement. Objective: Vital Signs: Vital Signs Date Time Temp Pulse Resp B/P (MAP) Pulse Ox O2 Delivery O2 Flow Rate FiO2 01/23/20 07:00 98.6 89 16 178/69 (105) 96 Room Air 98.6 Labs: Laboratory Tests Test 01/23/20 04:00 White Blood Count 7.1 x10^3/uL Red Blood Count 3.32 x10^6/uL Hemoglobin 9.7 g/dL Hematocrit 28.5 % Mean Corpuscular Volume 86 fL Mean Corpuscular Hemoglobin 29 pg Mean Corpuscular Hemoglobin Concent 34 g/dL Red Cell Distribution Width 16.6 % Platelet Count 375 x10^3/uL Neutrophils (%) (Auto) 73 % Lymphocytes (%) (Auto) 14 % Monocytes (%) (Auto) 10 % Eosinophils (%) (Auto) 2 % Basophils (%) (Auto) 1 % Neutrophils # (Auto) 5.1 x10^3/uL Lymphocytes # (Auto) 1.0 x10^3/uL Monocytes # (Auto) 0.7 x10^3/uL Eosinophils # (Auto) 0.2 x10^3/uL Basophils # (Auto) 0.1 x10^3/uL Sodium Level 137 mmol/L Potassium Level 3.7 mmol/L Chloride Level 101 mmol/L Carbon Dioxide Level 25 mmol/L Anion Gap 11 Blood Urea Nitrogen 12 mg/dL Creatinine 0.9 mg/dL Estimated GFR (Cockcroft-Gault) 85.8 BUN/Creatinine Ratio 13 Glucose Level 86 mg/dL Calcium Level 8.2 mg/dL Total Bilirubin 0.2 mg/dL Aspartate Amino Transf (AST/SGOT) 24 U/L Alanine Aminotransferase (ALT/SGPT) 38 U/L Alkaline Phosphatase 73 U/L Total Protein 6.8 g/dL Albumin 2.4 g/dL Albumin/Globulin Ratio 0.5 BLOOD CULTURE Preliminary NO GROWTH AFTER 2 DAYS Imaging: CXR 01/20 IMPRESSION: Findings suggest patchy bibasilar infiltrates, although some of the abnormalities made be pre-existing. PE: GEN: NAD LUNGS: CTAB HEART: RRR ABD: soft, NABS, does not seem tender NEURO/PSYCH: A & O 3, speech difficult to understand A/P: Chronic dysphagia, dislodged LATASHA-PACE tube H/o recurrent vomiting, constipation, ileus - no issues currently COVID-19 negative 01/20 Anemia, hemoccult negative -- D/w sister/guardian, Dr. Parra, nurse, and GI lab. Social work attempting transfer which is family's preference. However, if transfer not possible today, they would like to attempt proceed w/ PEG placement here. Tentatively scheduled for this at 1:30. Justicifation of Admission Dx: Justifications for Admission: Justification of Admission Dx: Yes Respiratory Failure: Airway Obstruction SLADE REYNAGA Jan 23, 2020 09:45
--- NOTE | 2020-01-23 10:39 | NUR ---
Spoke with sister wants to wait to here from [facility] stated Dr. Mai was Chemical Dependency Professional that was involved, before she will sign for procedure here.
--- NOTE | 2020-01-23 11:05 | PDOC ---
Infectious Disease Note Subjective Subjective waiting for transfer to [facility] for Vijay-wade feeding tube replacement Patient feeling alright this morning Looking forward to [facility] playing soon Denies pain/SOA No fevers PPN Room air ROS ROS no n/v/d/ Vital Sign Vital Signs Vital Signs Date Time Temp Pulse Resp B/P (MAP) Pulse Ox O2 Delivery O2 Flow Rate FiO2 01/23/20 07:00 98.6 89 16 178/69 (105) 96 Room Air 98.6 Physical Exam PHYSICAL EXAM GENERAL: Propped up in bed, alert in NAD HEENT: Pupils equal and reactive. He has normal conjunctivae. Oral cavity: P harynx was clear. Questionable dentition. NECK: Supple, no JVD. LUNGS: Decreased in the bases. No rhonchi. HEART: S1, S2. ABDOMEN: Mildly distended. soft, nontender. Vijay button out EXTREMITIES: No clubbing or cyanosis. No gross edema. SKIN: Warm to touch without signs of rash. NEUROLOGIC: He answers questions, moves extremities. SKIN: Warm to touch without signs of rash. PIV Labs Lab Laboratory Tests Test 01/23/20 04:00 White Blood Count 7.1 x10^3/uL (4.0-11.0) Red Blood Count 3.32 x10^6/uL (4.30-5.70) Hemoglobin 9.7 g/dL (13.0-17.5) Hematocrit 28.5 % (39.0-53.0) Mean Corpuscular Volume 86 fL (79-100) Mean Corpuscular Hemoglobin 29 pg (25-35) Mean Corpuscular Hemoglobin Concent 34 g/dL (31-37) Red Cell Distribution Width 16.6 % (11.5-14.5) Platelet Count 375 x10^3/uL (140-400) Neutrophils (%) (Auto) 73 % (31-73) Lymphocytes (%) (Auto) 14 % (24-48) Monocytes (%) (Auto) 10 % (0-9) Eosinophils (%) (Auto) 2 % (0-3) Basophils (%) (Auto) 1 % (0-3) Neutrophils # (Auto) 5.1 x10^3/uL (1.8-7.7) Lymphocytes # (Auto) 1.0 x10^3/uL (1.0-4.8) Monocytes # (Auto) 0.7 x10^3/uL (0.0-1.1) Eosinophils # (Auto) 0.2 x10^3/uL (0.0-0.7) Basophils # (Auto) 0.1 x10^3/uL (0.0-0.2) Sodium Level 137 mmol/L (136-145) Potassium Level 3.7 mmol/L (3.5-5.1) Chloride Level 101 mmol/L (98-107) Carbon Dioxide Level 25 mmol/L (21-32) Anion Gap 11 (6-14) Blood Urea Nitrogen 12 mg/dL (8-26) Creatinine 0.9 mg/dL (0.7-1.3) Estimated GFR (Cockcroft-Gault) 85.8 BUN/Creatinine Ratio 13 (6-20) Glucose Level 86 mg/dL (70-99) Calcium Level 8.2 mg/dL (8.5-10.1) Total Bilirubin 0.2 mg/dL (0.2-1.0) Aspartate Amino Transf (AST/SGOT) 24 U/L (15-37) Alanine Aminotransferase (ALT/SGPT) 38 U/L (16-63) Alkaline Phosphatase 73 U/L (46-116) Total Protein 6.8 g/dL (6.4-8.2) Albumin 2.4 g/dL (3.4-5.0) Albumin/Globulin Ratio 0.5 (1.0-1.7) Micro Microbiology 01/20/20 Blood Culture - Preliminary, Resulted NO GROWTH AFTER 2 DAYS Objective Assessment 1. Leukocytosis. 2. Suspected or possible aspiration pneumonia. 3. Mental retardation. 4. Dislodged Vijay-Wade tube. 5. History of recurrent vomiting, constipation, ileus. Plan Plan of Care Vanc and Zosyn Trough 17.2 Monitor labs BC neg to date Await transfer D/w nursing Much better. D/w sister awaiting transfer or PEG tube, then change to po antibiotics JENY TANG MD Jan 23, 2020 11:05
--- NOTE | 2020-01-23 11:14 | NUR ---
AARON following. Discussed with RN, pt needing inpatient transfer to or [facility] for landon button replacement. AARON spoke with Dr. Palmer, physician agreed. AARON initiated inpatient transfer to , contacted AARON back to advise in July, mailed a landon button to [facility] to have it replaced here instead of the hospital transfer. is still running the transfer anyway. AARON notified RN, RN then advised pt's sister is wanting pt to go to [facility] because Dr. Mai there is who is familiar with pt. AARON contacted [facility] (ph: [phone]) requested inpatient transfer team, SW was transferred however no one answered and no option to leave a voicemail. AARON called [facility] again, was then transferred to the GI department, left voicemail with . AARON contacted [facility] again about 30 minutes later to speak with Case Management department to determine if they know about inpatient transfers. AARON spoke with [facility] case management, provided pt information and physician contact info - case management will contact AARON back if more info is needed. RN notified. AARON will continue to follow. Addendum: 01/23/20 at 1630 by JUAN CARLOS WALKER AARON spoke with John at [facility] GI, she advised pt is not an established pt there and will speak to the clinical operations consultant GI doc when he is out of procedures. Dr. Palmer contacted AARON earlier to advise [facility] does not have the buttons, and would have to order them and this is normally done as an outpatient procedure. Dr. Palmer advised pt had a temp PEG tube placed today, plans to dc pt when pneumonia is resolved and pt can follow up outpatient if that is what [facility] decides. RN notified. SW will continue to follow.
--- NOTE | 2020-01-23 11:27 | NUR ---
Notified sister that SW is working on transfer but scheduled for strip picker for procedure her at 12:30
[2020-01-23] MEDS: VANCOMYCIN PER PHARMACY MC PRN (11:49)
--- NOTE | 2020-01-23 12:12 | NUR ---
Rec'd consent for procedure from sister/DPOA
--- NOTE | 2020-01-23 12:33 | NUR ---
To Outpatient Department per bed accompanied by sister for EGD with PEG placement
[2020-01-23] MEDS ORDERED: IV RINGERS,LACTATED 1000ML 1,000 ML IV ONE (13:00)
[2020-01-23] MEDS ORDERED: LIDOCAINE 2% PF 5 ML VIAL. ONE (13:28)
[2020-01-23] MEDS ORDERED: PROPOFOL 10 MG/ML (20ML) VIAL. IV ONE (13:58)
--- NOTE | 2020-01-23 14:00 | PDOC4 ---
PROCEDURE Procedure EGD/re-PEG Indication: Dislodged feeding tube. Meds: per anesthesia Findings: E--normal G--Prior stoma seen with string passed from outside, otherwise normal. D--Normal to second. --New standard g-tube placed in old stoma uneventfully. Dilcia. well. IMP: Successful re-PEG REC: OK to use tube immediately. In abdominal binder at all times. THALIA GARDNER MD Jan 23, 2020 14:00
--- NOTE | 2020-01-23 14:30 | NUR ---
Returned from procedure per bed, accompanied by family member, PEG tube in place,abdominal binder placed per order, family member at bedside
[2020-01-24] MEDS: VANCOMYCIN 1 GM in IV NORMAL SALINE 250ML 250 ML IV SCH (03:04)
[2020-01-24 07:00] VITALS: BP 159/75
[2020-01-24] MEDS: PANTOPRAZOLE IV PUSH 40 MG VIAL. IVP SCH (08:21)
--- NOTE | 2020-01-24 09:13 | PDOC ---
PULMONARY PROGRESS NOTES Subjective No respiratory distress Vitals Vital Signs Date Time Temp Pulse Resp B/P (MAP) Pulse Ox O2 Delivery O2 Flow Rate FiO2 01/24/20 07:00 98.5 73 16 159/75 (103) 94 Room Air 98.5 01/23/20 14:04 2 General: Alert, No acute distress HEENT: Other (nc at perrl) Lungs: Clear, Other Cardiovascular: S1, S2 Abdomen: Soft, Non-tender Neuro Exam: Alert Extremities: No Edema Skin: Warm Labs Laboratory Tests Test 01/23/20 04:00 White Blood Count 7.1 x10^3/uL (4.0-11.0) Red Blood Count 3.32 x10^6/uL (4.30-5.70) Hemoglobin 9.7 g/dL (13.0-17.5) Hematocrit 28.5 % (39.0-53.0) Mean Corpuscular Volume 86 fL (79-100) Mean Corpuscular Hemoglobin 29 pg (25-35) Mean Corpuscular Hemoglobin Concent 34 g/dL (31-37) Red Cell Distribution Width 16.6 % (11.5-14.5) Platelet Count 375 x10^3/uL (140-400) Neutrophils (%) (Auto) 73 % (31-73) Lymphocytes (%) (Auto) 14 % (24-48) Monocytes (%) (Auto) 10 % (0-9) Eosinophils (%) (Auto) 2 % (0-3) Basophils (%) (Auto) 1 % (0-3) Neutrophils # (Auto) 5.1 x10^3/uL (1.8-7.7) Lymphocytes # (Auto) 1.0 x10^3/uL (1.0-4.8) Monocytes # (Auto) 0.7 x10^3/uL (0.0-1.1) Eosinophils # (Auto) 0.2 x10^3/uL (0.0-0.7) Basophils # (Auto) 0.1 x10^3/uL (0.0-0.2) Sodium Level 137 mmol/L (136-145) Potassium Level 3.7 mmol/L (3.5-5.1) Chloride Level 101 mmol/L (98-107) Carbon Dioxide Level 25 mmol/L (21-32) Anion Gap 11 (6-14) Blood Urea Nitrogen 12 mg/dL (8-26) Creatinine 0.9 mg/dL (0.7-1.3) Estimated GFR (Cockcroft-Gault) 85.8 BUN/Creatinine Ratio 13 (6-20) Glucose Level 86 mg/dL (70-99) Calcium Level 8.2 mg/dL (8.5-10.1) Total Bilirubin 0.2 mg/dL (0.2-1.0) Aspartate Amino Transf (AST/SGOT) 24 U/L (15-37) Alanine Aminotransferase (ALT/SGPT) 38 U/L (16-63) Alkaline Phosphatase 73 U/L (46-116) Total Protein 6.8 g/dL (6.4-8.2) Albumin 2.4 g/dL (3.4-5.0) Albumin/Globulin Ratio 0.5 (1.0-1.7) Medications Active Scripts Medications Dose Route/Sig Max Daily Dose Days Date Category Dose Instructions Voltaren (Diclofenac Sodium) 100 Gm Gel..gram. 2 Gm TP DAILY 30 01/20/20 Reported Bilat knees Zofran (Ondansetron Hcl) 4 Mg Tablet 1 Tab PO PRN Q4HRS PRN 01/20/20 Reported Acetaminophen 325 Mg Tablet 650 Mg PO PRN Q6HRS PRN 01/20/20 Reported Compazine (Prochlorperazine Maleate) 10 Mg Tablet 1 Tab PO Q6HRS 30 01/20/20 Reported Mylanta Tonight 800-270-80/10 (Calcium Carb/Mag Hydrox/Simeth) 355 Ml Oral.susp 30 Ml PO Q6HRS 01/20/20 Reported Anti-Fungal Cream (Miconazole Nitrate) 113 Gm Cream..g. 1 Vel TP Q8HRS 14 01/20/20 Reported Magnesium (Magnesium Oxide) 400 Mg Capsule 1 Cap PO DAILY 30 01/20/20 Reported Hydralazine Hcl 50 Mg Tablet 1 Tab PO TID 01/20/20 Reported Finasteride 5 Mg Tablet 1 Tab PO DAILY 01/20/20 Reported Colace (Docusate Sodium) 100 Mg Capsule 1 Cap PO BID 30 01/20/20 Reported Cardizem Tablet (Diltiazem Hcl) 60 Mg Tablet 60 Mg PO QID 01/20/20 Reported Digoxin 125 Mcg Tablet 125 Mcg PO DAILY 01/20/20 Reported Doxazosin Mesylate 2 Mg Tablet 1 Tab PO HS 01/20/20 Reported Dicyclomine Hcl 10 Mg/5 Ml Solution 10 Mg PO QID 01/20/20 Reported Atropine Sulfate 2 Ml Drops 2 Ml OP QID 01/20/20 Reported Aspirin 81 Mg Tab.chew 1 Tab PO DAILY 01/20/20 Reported Geodon (Ziprasidone Hcl) 40 Mg Capsule 40 Mg PEG BID 07/07/19 Reported Dulcolax (Bisacodyl) 10 Mg Supp.rect 1 Supp RC HS PRN 10 07/07/19 Reported Montelukast Sodium Tablet (Montelukast Sodium) 10 Mg Tablet 1 Tab PEG HS 07/22/18 Reported Clonidine Tts-1 (Clonidine) 1 Each Patch.tdwk 1 Patch TD Saturdays07/22/18 Reported Miralax (Polyethylene Glycol 3350) 17 Gm Powd.pack 1 Packet PEG DAILY 07/22/18 Reported Nutren (Nutritional Supplement) 1,000 Ml Liquid 250 Ml PEG DAY 07/22/18 Reported Magnesium Oxide 400 Mg Tablet 1 Tab PO BID 07/22/18 Reported Carbamazepine 200 Mg/10 Ml Oral.susp 300 Mg PEG HS 07/22/18 Reported 15 ml Carbamazepine 200 Mg/10 Ml Oral.susp 200 Mg PEG BIDACBL 07/22/18 Reported 10 ml Impression . IMPRESSION: 1. Abnormal chest x-ray secondary to aspiration pneumonia/pneumonitis. 2. Aspiration pneumonia/pneumonitis. 3. Nausea, vomiting? etiology. 4. Dislodged gastrostomy tube. 5. Anemia, ? gastrointestinal bleeding. Plan . Discussed with sister at bedside okay to discharge we will sign off JESÚS MCKINNEY MD Jan 24, 2020 09:13
--- NOTE | 2020-01-24 10:04 | PDOC ---
Infectious Disease Note Subjective Subjective Patient did have a PEG tube yesterday Feeling good ROS ROS No nausea vomiting diarrhea chest pain shortness of breath Vital Sign Vital Signs Vital Signs Date Time Temp Pulse Resp B/P (MAP) Pulse Ox O2 Delivery O2 Flow Rate FiO2 01/24/20 07:00 98.5 73 16 159/75 (103) 94 Room Air 98.5 01/23/20 14:04 2 Physical Exam PHYSICAL EXAM GENERAL: Propped up in bed, alert in NAD HEENT: Pupils equal and reactive. He has normal conjunctivae. Oral cavity: Pharynx was clear. Questionable dentition. NECK: Supple, no JVD. LUNGS: Decreased in the bases. No rhonchi. HEART: S1, S2. ABDOMEN: Mildly distended. soft, nontender. Vijay button out EXTREMITIES: No clubbing or cyanosis. No gross edema. SKIN: Warm to touch without signs of rash. NEUROLOGIC: He answers questions, moves extremities. SKIN: Warm to touch without signs of rash. PIV Labs Micro Microbiology 01/20/20 Blood Culture - Preliminary, Resulted NO GROWTH AFTER 2 DAYS Objective Assessment 1. Leukocytosis. 2. Suspected or possible aspiration pneumonia. 3. Mental retardation. 4. Dislodged Vijay-Wade tube. 5. History of recurrent vomiting, constipation, ileus. Plan Plan of Care Change antibiotics to p.o. Augmentin Okay to discharge from the infectious disease standpoint of view With sister JENY TANG MD Jan 24, 2020 10:04
--- NOTE | 2020-01-24 10:06 | NUR ---
AARON following. Discussed with RN, tube feeds being started today through peg tube. SW to fax clinicals to [facility]. AARON will continue to follow. Addendum: 01/24/20 at 1504 by JUAN CARLOS WALKER AARON verified with [facility] pt is a LTC resident, and [facility] is not taking pts at this time which is why pt is LTC at [facility] (transitioned from [facility]). AARON spoke with Dr. Roque, family is wanting pt to return to [facility], AARON spoke with pt's sister Patricia, she and pt have a zoom meeting with [facility] to do a re-eval to determine if pt can return. AARON spoke with Krystin at [facility] who said they are closed to the public and are not taking admissions or taking people at this time. Krystin would not provide AARON with any phone numbers or email addresses for the program directors to determine if a prior arrangement has been made to authorize a one time admission/ return. Krystin advised she can't have Ramon call AARON because Ramon is working from home and won't be back in until next Thursday - AARON queried how a zoom meeting was being done tomorrow if Ramon isn't working until next week? AARON contacted [facility] for [facility] and obtained Ramon - youth program director's email address. AARON sent email to Ramon requesting more information for the purpose of discharge planning. AARON will continue to follow.
--- NOTE | 2020-01-24 10:15 | NUR ---
Patients PPN was discontinued around 1000 and PEG tube feeding of Jevity 1.5 @ 20ml/hr started. PEG tube site with some tenderness and old bleeding present. PEG working properly with no pain or discomfort noted upon the start of his feeding- will monitor. Sister at bedside and updated. Will continue to monitor.
--- NOTE | 2020-01-24 10:31 | PDOC ---
Subjective: Subjective: Tube feeds were not restarted. Objective: Vital Signs: Vital Signs Date Time Temp Pulse Resp B/P (MAP) Pulse Ox O2 Delivery O2 Flow Rate FiO2 01/24/20 07:00 98.5 73 16 159/75 (103) 94 Room Air 98.5 01/23/20 14:04 2 Imaging: CXR 01/23 pending EGD 01/22 E--normal G--Prior stoma seen with string passed from outside, otherwise normal. D--Normal to second. --New standard g-tube placed in old stoma uneventfully. IMP: Successful re-PEG REC: OK to use tube immediately. In abdominal binder at all times. PE: GEN: NAD - staff present shaving face, sister present LUNGS: wet cough HEART: RRR, ABD: new PEG looks good - site clean, seems appropriate tension - abd binder replaced NEURO/PSYCH: smiles A/P: Chronic dysphagia, dislodged LATASHA-PACE tube s/p G tube replacement Possible pneumonia -- D/w nurse - okay to start tube feeds per orders yesterday afternoon, will ask nutrition to see. Nurse called to ask about PPN - gave okay to stop. Dc/transfer per primary. Justicifation of Admission Dx: Justifications for Admission: Justification of Admission Dx: Yes Respiratory Failure: Airway Obstruction SLADE ERYNAGA Jan 24, 2020 10:31
[2020-01-24 11:00] VITALS: BP 156/86
[2020-01-24] MEDS ORDERED: AMOXICILLIN/K CLAV 875/125MG TABLET. PO SCH (11:00)
--- NOTE | 2020-01-24 11:35 | RAD ---
CHEST AP ONLY INDICATION: Reason: pneumonia / Spl. Instructions: / History: . COMPARISON STUDY: 01/21/2020. FINDINGS: Lungs: Normal lung volume. Improving but persistent patchy bibasilar heterogeneous opacities. Normal pulmonary vasculature. Pleura: No pleural effusion or pneumothorax. Heart and Mediastinum: Stable cardiomediastinal silhouette and great vessels. IMPRESSION: Improving but persistent patchy bibasilar heterogeneous opacities. Electronically signed by: Олег Rodriguez MD (01/24/2020 11:32 AM) [id number]
[2020-01-24] MEDS: AMOXICILLIN/CLAV 400MG/57MG 5 ML ORAL.SUSP. PEG SCH ×2 (11:40→21:38)
[2020-01-24 15:00] VITALS: BP 170/79
--- NOTE | 2020-01-24 17:55 | PDOC ---
[facility] PROGRESS NOTE Chief Complaint Chief Complaint Dislodged Anuel tube History of Present Illness History of Present Illness 59-year-old man with past medical history of intellectual disability, Anuel G- tube placement for likely paralytic ileus, hypertension, seizures comes to the ED because of dislodgment of the Anuel button. Since time of admission GI was consulted and a PEG tube was placed. However, sister insisted on having the Anuel tube replaced and this will only be done at [facility] because there is no Anuel button supplies at this facility. After PEG tube was placed patient was tolerating tube feeds IV antibiotics was transitioned to p.o. antibiotics via PEG tube. Patient remained afebrile and clinically stable throughout his hospital stay. Rest of his hospital course was uneventful Vitals/I&O Vitals/I&O: Vital Signs Date Time Temp Pulse Resp B/P (MAP) Pulse Ox O2 Delivery O2 Flow Rate FiO2 01/24/20 15:00 98.8 74 16 170/79 (109) 95 Room Air 98.8 01/23/20 14:04 2 I & O 01/23/20 01/23/20 01/24/20 15:00 23:00 07:00 Intake Total 100 ml 50 ml Output Total 250 ml Balance -250 ml 100 ml 50 ml Physical Exam Physical Exam: GENERAL: Propped up in bed, alert in NAD HEENT: Pupils equal and reactive. He has normal conjunctivae. Oral cavity: Pharynx was clear. Questionable dentition. NECK: Supple, no JVD. LUNGS: Decreased in the bases. No rhonchi. HEART: S1, S2. ABDOMEN: Mildly distended. soft, nontender. PEG tube placed. Tube feeds running continuously. EXTREMITIES: No clubbing or cyanosis. No gross edema. SKIN: Warm to touch without signs of rash. NEUROLOGIC: He answers questions, moves extremities. SKIN: Warm to touch without signs of rash. PIV General: Cooperative, No acute distress Lungs: Clear, Other Review of Systems Review of Systems: CONSTITUIONAL: Denies weight loss, fever and chills. HEENT: Denies changes in vision and hearing. RESPIRATORY: Denies SOB and cough. CV: Denies palpitations and CP. GI: Denies abdominal pain, nausea, vomiting and diarrhea. : Denies dysuria and urinary frequency. MSK: Denies myalgia and joint pain. SKIN: Denies rash and pruritus. NEUROLOGICAL: Denies headache and syncope. PSYCHIATRIC: Denies recent changes in mood. Denies anxiety and depression. Assessment and Plan Assessmemt and Plan Dislodged Anuel G-tube Malnutrition Intellectual disability Aspiration pneumonitis/pneumonia IV antibiotics Duo nebs Oxygen PRN consulted GI I did call them to get a new feeding tube Home meds DVT prophylaxis Full code per his sister // is the POA Pending PT OT Discussed with RN and casework specialist. Patient's sister would like the family to go to residential. Comment Review of Relevant I have reviewed the following items milan (where applicable) has been applied. Medications: Current Medications Medications (Trade) Dose Ordered Sig/Spencer Route PRN Reason Start Time Stop Time Status Last Admin Dose Admin Amoxicillin/ Clavulanate Potassium (Augmentin 400-57mg/5ml Susp) 10.9 ml Q12HR PEG 01/24/20 11:00 01/24/20 11:40 Justicifation of Admission Dx: Justifications for Admission: Justification of Admission Dx: Yes Respiratory Failure: Airway Obstruction GEM ANNA MD Jan 24, 2020 17:55
[2020-01-24 19:00] VITALS: BP_SYST 155; BP_SYST 156; BP_DIAS 70; BP_DIAS 77
--- NOTE | 2020-01-24 19:11 | NUR ---
Patient PEG tube feeding was increased per order to 30ml/hr around 1800. No pain or discomfort noted. Will continue at that rate. Notified oncoming shift of rate goal and orders.
[2020-01-24 23:00] VITALS: BP 161/72
[2020-01-25 03:00] VITALS: BP 158/80
[2020-01-25 07:00] VITALS: BP 149/78
[2020-01-25] MEDS ORDERED: LANSOPRAZOLE 30 MG TAB.RAP.DR FT SCH (07:30)
--- NOTE | 2020-01-25 08:40 | PDOC ---
PROGRESS NOTES Chief Complaint Chief Complaint discharge dx Dislodged Anuel tube History of Present Illness History of Present Illness 59-year-old man with past medical history of intellectual disability, Anuel G- tube placement for likely paralytic ileus, hypertension, seizures comes to the ED because of dislodgment of the Aneul button. Since time of admission GI was consulted and a PEG tube was placed. However, sister insisted on having the Anuel tube replaced and this will only be done at [facility] because there is no M ickey button supplies at this facility. After PEG tube was placed patient was tolerating tube feeds IV antibiotics was transitioned to p.o. antibiotics via PEG tube. Patient remained afebrile and clinically stable throughout his hospital stay. Vitals Vitals Vital Signs Date Time Temp Pulse Resp B/P (MAP) Pulse Ox O2 Delivery O2 Flow Rate FiO2 01/25/20 03:00 99.9 87 16 158/80 (106) 94 Room Air 99.9 Physical Exam Physical Exam GENERAL: Propped up in bed, alert in NAD HEENT: Pupils equal and reactive. He has normal conjunctivae. Oral cavity: Pharynx was clear. Questionable dentition. NECK: Supple, no JVD. LUNGS: Decreased in the bases. No rhonchi. HEART: S1, S2. ABDOMEN: Mildly distended. soft, nontender. PEG tube placed. Tube feeds running continuously. EXTREMITIES: No clubbing or cyanosis. No gross edema. SKIN: Warm to touch without signs of rash. NEUROLOGIC: He answers questions, moves extremities. SKIN: Warm to touch without signs of rash. PIV General: Alert, Cooperative, No acute distress Heart: Regular rate Lungs: Clear, Other Abdomen: Normal bowel sounds, Soft, No tenderness, No hepatosplenomegaly Extremities: No cyanosis, No edema Assessment and Plan Assessmemt and Plan Problems Medical Problems: (1) GI bleed Status: Acute (2) Nausea & vomiting Status: Acute Comment Review of Relevant I have reviewed the following items milan (where applicable) has been applied. Labs Microbiology 01/20/20 Blood Culture - Preliminary, Resulted NO GROWTH AFTER 4 DAYS Medications Current Medications Sodium Chloride 1,000 ml @ 1,000 mls/hr 1X ONCE IV Last administered on 01/20/20at 10:52; Start 7/10/20 at 10:45; Stop 01/20/20 at 11:44; Status DC Iohexol (Omnipaque 300 Mg/ml) 75 ml 1X ONCE IV Last administered on 01/20/20at 11:54; Start 01/20/20 at 11:30; Stop 01/20/20 at 11:32; Status DC Info (CONTRAST GIVEN -- Rx MONITORING) 1 each PRN DAILY PRN MC SEE COMMENTS; Start 01/20/20 at 11:45; Stop 01/22/20 at 11:44; Status DC Ondansetron HCl (Zofran) 4 mg 1X ONCE IVP Last administered on 01/20/20at 12:01; Start 01/20/20 at 11:45; Stop 01/20/20 at 11:46; Status DC Vancomycin HCl (Vanco Per Pharmacy) 1 each PRN DAILY PRN MC SEE COMMENTS Last administered on 01/23/20at 11:49; Start 01/20/20 at 13:15; Stop 01/24/20 at 10:06; Status DC Piperacillin Sod/ Tazobactam Sod (Zosyn Per Pharmacy) 1 each PRN DAILY PRN MC SEE COMMENTS; Start 01/20/20 at 13:15; Stop 01/24/20 at 10:04; Status DC Clindamycin Phosphate 50 ml @ 100 mls/hr 1X ONCE IV Last administered on 01/20/20at 13:50; Start 01/20/20 at 13:15; Stop 01/20/20 at 13:44; Status DC Vancomycin HCl 1.75 gm/Sodium Chloride 500 ml @ 250 mls/hr 1X ONCE IV Last administered on 01/20/20at 14:44; Start 01/20/20 at 13:30; Stop 01/20/20 at 15:29; Status DC Piperacillin Sod/ Tazobactam Sod 3.375 gm/Sodium Chloride 50 ml @ 100 mls/hr 1X ONCE IV Last administered on 01/20/20at 13:50; Start 01/20/20 at 13:30; Stop 01/20/20 at 13:59; Status DC Pantoprazole Sodium (Protonix) 40 mg 1X ONCE PO ; Start 01/20/20 at 14:45; Stop 01/20/20 at 14:52; Status DC Pantoprazole Sodium (PROTONIX VIAL for IV PUSH) 40 mg 1X ONCE IVP Last administered on 01/20/20at 15:02; Start 01/20/20 at 15:00; Stop 01/20/20 at 15:01; Status DC Piperacillin Sod/ Tazobactam Sod 3.375 gm/Sodium Chloride 50 ml @ 100 mls/hr Q6HRS IV Last administered on 01/23/20at 23:52; Start 01/20/20 at 19:30; Stop 01/24/20 at 10:04; Status DC Vancomycin HCl 1 gm/Sodium Chloride 250 ml @ 250 mls/hr Q12H IV Last administered on 01/24/20at 03:04; Start 01/21/20 at 03:00; Stop 01/24/20 at 10:05; Status DC Vancomycin HCl (Vancomycin Trough Level) 1 each 1X ONCE MC Last administered on 01/22/20at 02:30; Start 01/22/20 at 02:30; Stop 01/22/20 at 02:31; Status DC Amino Acids/ Glycerin/ Electrolytes 1,000 ml @ 75 mls/hr [id number] IV Last administered on 01/23/20at 20:56; Start 01/20/20 at 20:30; Stop 01/24/20 at 09:47; Status DC Pantoprazole Sodium (PROTONIX VIAL for IV PUSH) 40 mg DAILYAC IVP Last administered on 01/24/20at 08:21; Start 01/21/20 at 11:15; Stop 01/24/20 at 10:32; Status DC Acetaminophen (Tylenol Supp) 650 mg PRN Q6HRS PRN [place] MILD PAIN / TEMP > 100.3'F; Start 01/21/20 at 12:30 Ringer's Solution 1,000 ml @ 75 mls/hr 1X ONCE IV Last administered on 01/23/20at 12:55; Start 01/23/20 at 13:00; Stop 01/24/20 at 02:19; Status DC Lidocaine HCl (Lidocaine Pf 2% Vial) 5 ml STK-MED ONCE .ROUTE ; Start 01/23/20 at 13:28; Stop 01/23/20 at 13:29; Status DC Propofol (Diprivan) 200 mg STK-MED ONCE IV ; Start 01/23/20 at 13:58; Stop 01/23/20 at 13:58; Status DC Amoxicillin/ Clavulanate Potassium (Augmentin 875/ 125mg) 1 tab BID PO ; Start 01/24/20 at 11:00; Stop 01/24/20 at 10:40; Status DC Lansoprazole (Prevacid) 30 mg DAILYAC FT ; Start 01/25/20 at 07:30 Amoxicillin/ Clavulanate Potassium (Augmentin 400-57mg/5ml Susp) 10.9 ml Q12HR PEG Last administered on 01/24/20at 21:38; Start 01/24/20 at 11:00 Active Scripts Active Reported Voltaren (Diclofenac Sodium) 100 Gm Gel..gram. 2 Gm TP DAILY 30 Days Bilat knees Zofran (Ondansetron Hcl) 4 Mg Tablet 1 Tab PO PRN Q4HRS PRN Acetaminophen 325 Mg Tablet 650 Mg PO PRN Q6HRS PRN Compazine (Prochlorperazine Maleate) 10 Mg Tablet 1 Tab PO Q6HRS 30 Days Mylanta Tonight 800-270-80/10 (Calcium Carb/Mag Hydrox/Simeth) 355 Ml Oral.susp 30 Ml PO Q6HRS Anti-Fungal Cream (Miconazole Nitrate) 113 Gm Cream..g. 1 Vel TP Q8HRS 14 Days Magnesium (Magnesium Oxide) 400 Mg Capsule 1 Cap PO DAILY 30 Days Hydralazine Hcl 50 Mg Tablet 1 Tab PO TID Finasteride 5 Mg Tablet 1 Tab PO DAILY Colace (Docusate Sodium) 100 Mg Capsule 1 Cap PO BID 30 Days Cardizem Tablet (Diltiazem Hcl) 60 Mg Tablet 60 Mg PO QID Digoxin 125 Mcg Tablet 125 Mcg PO DAILY Doxazosin Mesylate 2 Mg Tablet 1 Tab PO HS Dicyclomine Hcl 10 Mg/5 Ml Solution 10 Mg PO QID Atropine Sulfate 2 Ml Drops 2 Ml OP QID Aspirin 81 Mg Tab.chew 1 Tab PO DAILY Geodon (Ziprasidone Hcl) 40 Mg Capsule 40 Mg PEG BID Dulcolax (Bisacodyl) 10 Mg Supp.rect 1 Supp RC HS PRN 10 Days Montelukast Sodium Tablet (Montelukast Sodium) 10 Mg Tablet 1 Tab PEG HS Clonidine Tts-1 (Clonidine) 1 Each Patch.tdwk 1 Patch TD SATURDAYS Miralax (Polyethylene Glycol 3350) 17 Gm Powd.pack 1 Packet PEG DAILY Nutren (Nutritional Supplement) 1,000 Ml Liquid 250 Ml PEG 5XDAY Magnesium Oxide 400 Mg Tablet 1 Tab PO BID Carbamazepine 200 Mg/10 Ml Oral.susp 300 Mg PEG HS 15 ml Carbamazepine 200 Mg/10 Ml Oral.susp 200 Mg PEG BIDACBL 10 ml Vitals/I & O Vital Sign - Last 24 Hours 01/24/20 01/24/20 01/24/20 01/24/20 11:00 15:00 19:00 19:00 Temp 98.3 98.8 98.0 98.3 98.8 98.0 Pulse 77 74 87 Resp 16 16 16 B/P (MAP) 156/86 (109) 170/79 (109) 156/77 (103) Pulse Ox 96 95 97 O2 Delivery Room Air Room Air Room Air 01/24/20 01/24/20 01/25/20 20:15 23:00 03:00 Temp 98.1 99.9 98.1 99.9 Pulse 65 87 Resp 16 16 B/P (MAP) 161/72 (101) 158/80 (106) Pulse Ox 96 94 O2 Delivery Room Air Room Air Room Air Intake and Output 01/24/20 01/24/20 01/25/20 15:00 23:00 07:00 Intake Total 693 ml Output Total 1300 ml 300 ml Balance -1300 ml 393 ml Nutrition Consultation Dietary Evaluation: Recommendations by RD: Dietary education by RD, PPN/TPN Comments: Tf REC Jevity 1.5 continuous at 20 ml/hr increase by 10 ml q 8 hr to goal rate of 40 ml/hr. flushes:155 ml q 4 hr. Expected Outcomes/Goals: to meet >75% est nutr needs via TF Malnutrition Findings: Body Fat Depletion (Non Severe: Mild Depletion Weight Status: Underweight Justicifation of Admission Dx: Justifications for Admission: Justification of Admission Dx: Yes Respiratory Failure: Airway Obstruction IRON NEGRON MD Jan 25, 2020 08:40
[2020-01-25] MEDS: AMOXICILLIN/CLAV 400MG/57MG 5 ML ORAL.SUSP. PEG SCH (08:49)
--- NOTE | 2020-01-25 09:27 | PDOC ---
PULMONARY PROGRESS NOTES Subjective No respiratory distress Vitals Vital Signs Date Time Temp Pulse Resp B/P (MAP) Pulse Ox O2 Delivery O2 Flow Rate FiO2 01/25/20 07:00 97.5 74 16 149/78 (101) 96 Room Air 97.5 General: Alert, No acute distress HEENT: Other (nc at perr) Lungs: Clear, Other Cardiovascular: S1, S2 Abdomen: Soft, Non-tender Neuro Exam: Alert Extremities: No Edema Skin: Warm Medications Active Scripts Medications Dose Route/Sig Max Daily Dose Days Date Category Dose Instructions Voltaren (Diclofenac Sodium) 100 Gm Gel..gram. 2 Gm TP DAILY 30 01/20/20 Reported Bilat knees Zofran (Ondansetron Hcl) 4 Mg Tablet 1 Tab PO PRN Q4HRS PRN 01/20/20 Reported Acetaminophen 325 Mg Tablet 650 Mg PO PRN Q6HRS PRN 01/20/20 Reported Compazine (Prochlorperazine Maleate) 10 Mg Tablet 1 Tab PO Q6HRS 30 01/20/20 Reported Mylanta Tonight 800-270-80/10 (Calcium Carb/Mag Hydrox/Simeth) 355 Ml Oral.susp 30 Ml PO Q6HRS 01/20/20 Reported Anti-Fungal Cream (Miconazole Nitrate) 113 Gm Cream..g. 1 Vel TP Q8HRS 14 01/20/20 Reported Magnesium (Magnesium Oxide) 400 Mg Capsule 1 Cap PO DAILY 30 01/20/20 Reported Hydralazine Hcl 50 Mg Tablet 1 Tab PO TID 01/20/20 Reported Finasteride 5 Mg Tablet 1 Tab PO DAILY 01/20/20 Reported Colace (Docusate Sodium) 100 Mg Capsule 1 Cap PO BID 30 01/20/20 Reported Cardizem Tablet (Diltiazem Hcl) 60 Mg Tablet 60 Mg PO QID 01/20/20 Reported Digoxin 125 Mcg Tablet 125 Mcg PO DAILY 01/20/20 Reported Doxazosin Mesylate 2 Mg Tablet 1 Tab PO HS 01/20/20 Reported Dicyclomine Hcl 10 Mg/5 Ml Solution 10 Mg PO QID 01/20/20 Reported Atropine Sulfate 2 Ml Drops 2 Ml OP QID 01/20/20 Reported Aspirin 81 Mg Tab.chew 1 Tab PO DAILY 01/20/20 Reported Geodon (Ziprasidone Hcl) 40 Mg Capsule 40 Mg PEG BID 07/07/19 Reported Dulcolax (Bisacodyl) 10 Mg Supp.rect 1 Supp RC HS PRN 10 07/07/19 Reported Montelukast Sodium Tablet (Montelukast Sodium) 10 Mg Tablet 1 Tab PEG HS 07/22/18 Reported Clonidine Tts-1 (Clonidine) 1 Each Patch.tdwk 1 Patch TD Saturdays07/22/18 Reported Miralax (Polyethylene Glycol 3350) 17 Gm Powd.pack 1 Packet PEG DAILY 07/22/18 Reported Nutren (Nutritional Supplement) 1,000 Ml Liquid 250 Ml PEG DAY 07/22/18 Reported Magnesium Oxide 400 Mg Tablet 1 Tab PO BID 07/22/18 Reported Carbamazepine 200 Mg/10 Ml Oral.susp 300 Mg PEG HS 07/22/18 Reported 15 ml Carbamazepine 200 Mg/10 Ml Oral.susp 200 Mg PEG BIDACBL 07/22/18 Reported 10 ml Impression . IMPRESSION: 1. Abnormal chest x-ray secondary to aspiration pneumonia/pneumonitis. 2. Aspiration pneumonia/pneumonitis. 3. Nausea, vomiting? etiology. 4. Dislodged gastrostomy tube. 5. Anemia, ? gastrointestinal bleeding. Plan . Discussed with sister at bedside okay to discharge we will sign off JESÚS MCKINNEY MD Jan 25, 2020 09:27
--- NOTE | 2020-01-25 09:53 | PDOC ---
Subjective: Subjective: Sister asks about bolus feeds. Objective: Objective: D/w nurse - says nutrition plans to order bolus feeds. Tmax 99.9. Vital Signs: Vital Signs Date Time Temp Pulse Resp B/P (MAP) Pulse Ox O2 Delivery O2 Flow Rate FiO2 01/25/20 07:00 97.5 74 16 149/78 (101) 96 Room Air 97.5 PE: GEN: NAD LUNGS: CTAB anteriorly HEART: RRR ABD: PEG site w/ minimal dried brownish bloody discharge under bumper, non- tender, NABS NEURO/PSYCH: awake and alert, quiet today A/P: Chronic dysphagia, dislodged LATASHA-PACE tube s/p G tube replacement Possible pneumonia -- Bolus feeds okay - this is what he usually does at [facility]. DC per primary. Justicifation of Admission Dx: Justifications for Admission: Justification of Admission Dx: Yes Respiratory Failure: Airway Obstruction SLADE REYNAGA Jan 25, 2020 09:53
[2020-01-25 11:00] VITALS: BP 136/72
--- NOTE | 2020-01-25 12:28 | NUR ---
AARON following. Discussed with RN, family reported to RN pt cannot go to [facility]. Consults have all signed off, Dr. Palmer okay with return to [facility] today. SW notified [facility], awaiting discharge paperwork and transport time.
--- NOTE | 2020-01-25 12:32 | PDOC3 ---
Discharge Summary Date of Admission: Jan 20, 2020 Date of Discharge: Jan 25, 2020 Follow-Up: 3-5 days Admitting Diagnosis comment: discharge dx Dislodged Anuel feeding tube aspiration pneumonia History of Present Illness History of Present Illness 59-year-old man with past medical history of intellectual disability, Anuel G- tube placement for likely paralytic ileus, hypertension, seizures comes to the ED because of dislodgment of the Anuel button. Since time of admission GI was consulted and a PEG tube was placed. However, sister insisted on having the Anuel tube replaced and this will only be done at [facility] because there is no Anuel button supplies at this facility. After PEG tube was placed patient was tolerating tube feeds IV antibiotics was transitioned to p.o. antibiotics via PEG tube. Patient remained afebrile and clinically stable throughout his hospital stay. d/c planning 22 min Vitals Vitals Vital Signs Date Time Temp Pulse Resp B/P (MAP) Pulse Ox O2 Delivery O2 Flow Rate FiO2 01/25/20 03:00 99.9 87 16 158/80 (106) 94 Room Air 99.9 Physical Exam Physical Exam GENERAL: Propped up in bed, alert in NAD HEENT: Pupils equal and reactive. He has normal conjunctivae. Oral cavity: Pharynx was clear. Questionable dentition. NECK: Supple, no JVD. LUNGS: Decreased in the bases. No rhonchi. HEART: S1, S2. ABDOMEN: Mildly distended. soft, nontender. PEG tube placed. Tube feeds running continuously. EXTREMITIES: No clubbing or cyanosis. No gross edema. SKIN: Warm to touch without signs of rash. NEUROLOGIC: He answers questions, moves extremities. SKIN: Warm to touch without signs of rash. PIV General: Alert, Cooperative, No acute distress Heart: Regular rate Lungs: Clear, Other Abdomen: Normal bowel sounds, Soft, No tenderness, No hepatosplenomegaly Extremities: No cyanosis, No edema Assessment and Plan Assessmemt and Plan Problems Medical Problems: (1) GI bleed Status: Acute (2) Nausea & vomiting Status: Acute Comment Review of Relevant I have reviewed the following items milan (where applicable) has been applied. Labs Microbiology 01/20/20 Blood Culture - Preliminary, Resulted NO GROWTH AFTER 4 DAYS FINAL DIAGNOSIS Problems Medical Problems: (1) GI bleed Status: Acute (2) Nausea & vomiting Status: Acute Brief Hospital Course Mr. Tomlin is a 59 old [sex] who presented with [ dislodged feeding tube] CONDITION AT DISCHARGE: Improved Discharge Medications Current Medications Sodium Chloride 1,000 ml @ 1,000 mls/hr 1X ONCE IV Last administered on 01/20/20at 10:52; Start 01/20/20 at 10:45; Stop 01/20/20 at 11:44; Status DC Iohexol (Omnipaque 300 Mg/ml) 75 ml 1X ONCE IV Last administered on 01/20/20at 11:54; Start 01/20/20 at 11:30; Stop 01/20/20 at 11:32; Status DC Info (CONTRAST GIVEN -- Rx MONITORING) 1 each PRN DAILY PRN MC SEE COMMENTS; Start 01/20/20 at 11:45; Stop 01/22/20 at 11:44; Status DC Ondansetron HCl (Zofran) 4 mg 1X ONCE IVP Last administered on 01/20/20at 12:01; Start 01/20/20 at 11:45; Stop 01/20/20 at 11:46; Status DC Vancomycin HCl (Vanco Per Pharmacy) 1 each PRN DAILY PRN MC SEE COMMENTS Last administered on 01/23/20at 11:49; Start 01/20/20 at 13:15; Stop 01/24/20 at 10:06; Status DC Piperacillin Sod/ Tazobactam Sod (Zosyn Per Pharmacy) 1 each PRN DAILY PRN MC SEE COMMENTS; Start 01/20/20 at 13:15; Stop 01/24/20 at 10:04; Status DC Clindamycin Phosphate 50 ml @ 100 mls/hr 1X ONCE IV Last administered on 01/20/20at 13:50; Start 01/20/20 at 13:15; Stop 01/20/20 at 13:44; Status DC Vancomycin HCl 1.75 gm/Sodium Chloride 500 ml @ 250 mls/hr 1X ONCE IV Last administered on 01/20/20at 14:44; Start 01/20/20 at 13:30; Stop 01/20/20 at 15:29; Status DC Piperacillin Sod/ Tazobactam Sod 3.375 gm/Sodium Chloride 50 ml @ 100 mls/hr 1X ONCE IV Last administered on 01/20/20at 13:50; Start 01/20/20 at 13:30; Stop 01/20/20 at 13:59; Status DC Pantoprazole Sodium (Protonix) 40 mg 1X ONCE PO ; Start 01/20/20 at 14:45; Stop 01/20/20 at 14:52; Status DC Pantoprazole Sodium (PROTONIX VIAL for IV PUSH) 40 mg 1X ONCE IVP Last administered on 01/20/20at 15:02; Start 01/20/20 at 15:00; Stop 01/20/20 at 15:01; Status DC Piperacillin Sod/ Tazobactam Sod 3.375 gm/Sodium Chloride 50 ml @ 100 mls/hr Q6HRS IV Last administered on 01/23/20at 23:52; Start 01/20/20 at 19:30; Stop 01/24/20 at 10:04; Status DC Vancomycin HCl 1 gm/Sodium Chloride 250 ml @ 250 mls/hr Q12H IV Last administered on 01/24/20at 03:04; Start 01/21/20 at 03:00; Stop 01/24/20 at 10:05; Status DC Vancomycin HCl (Vancomycin Trough Level) 1 each 1X ONCE MC Last administered on 01/22/20at 02:30; Start 01/22/20 at 02:30; Stop 01/22/20 at 02:31; Status DC Amino Acids/ Glycerin/ Electrolytes 1,000 ml @ 75 mls/hr [id number] IV Last administered on 01/23/20at 20:56; Start 01/20/20 at 20:30; Stop 01/24/20 at 09:47; Status DC Pantoprazole Sodium (PROTONIX VIAL for IV PUSH) 40 mg DAILYAC IVP Last administered on 01/24/20at 08:21; Start 01/21/20 at 11:15; Stop 01/24/20 at 10:32; Status DC Acetaminophen (Tylenol Supp) 650 mg PRN Q6HRS PRN [place] MILD PAIN / TEMP > 100.3'F; Start 01/21/20 at 12:30 Ringer's Solution 1,000 ml @ 75 mls/hr 1X ONCE IV Last administered on 01/23/20at 12:55; Start 01/23/20 at 13:00; Stop 01/24/20 at 02:19; Status DC Lidocaine HCl (Lidocaine Pf 2% Vial) 5 ml STK-MED ONCE .ROUTE ; Start 01/23/20 at 13:28; Stop 01/23/20 at 13:29; Status DC Propofol (Diprivan) 200 mg STK-MED ONCE IV ; Start 01/23/20 at 13:58; Stop 01/23/20 at 13:58; Status DC Amoxicillin/ Clavulanate Potassium (Augmentin 875/ 125mg) 1 tab BID PO ; Start 01/24/20 at 11:00; Stop 01/24/20 at 10:40; Status DC Lansoprazole (Prevacid) 30 mg DAILYAC FT Last administered on 01/25/20at 08:49; Start 01/25/20 at 07:30 Amoxicillin/ Clavulanate Potassium (Augmentin 400-57mg/5ml Susp) 10.9 ml Q12HR PEG Last administered on 01/25/20at 08:49; Start 01/24/20 at 11:00 Active Scripts Active Reported Voltaren (Diclofenac Sodium) 100 Gm Gel..gram. 2 Gm TP DAILY 30 Days Bilat knees Zofran (Ondansetron Hcl) 4 Mg Tablet 1 Tab PO PRN Q4HRS PRN Acetaminophen 325 Mg Tablet 650 Mg PO PRN Q6HRS PRN Compazine (Prochlorperazine Maleate) 10 Mg Tablet 1 Tab PO Q6HRS 30 Days Mylanta Tonight 800-270-80/10 (Calcium Carb/Mag Hydrox/Simeth) 355 Ml Oral.susp 30 Ml PO Q6HRS Anti-Fungal Cream (Miconazole Nitrate) 113 Gm Cream..g. 1 Vel TP Q8HRS 14 Days Magnesium (Magnesium Oxide) 400 Mg Capsule 1 Cap PO DAILY 30 Days Hydralazine Hcl 50 Mg Tablet 1 Tab PO TID Finasteride 5 Mg Tablet 1 Tab PO DAILY Colace (Docusate Sodium) 100 Mg Capsule 1 Cap PO BID 30 Days Cardizem Tablet (Diltiazem Hcl) 60 Mg Tablet 60 Mg PO QID Digoxin 125 Mcg Tablet 125 Mcg PO DAILY Doxazosin Mesylate 2 Mg Tablet 1 Tab PO HS Dicyclomine Hcl 10 Mg/5 Ml Solution 10 Mg PO QID Atropine Sulfate 2 Ml Drops 2 Ml OP QID Aspirin 81 Mg Tab.chew 1 Tab PO DAILY Geodon (Ziprasidone Hcl) 40 Mg Capsule 40 Mg PEG BID Dulcolax (Bisacodyl) 10 Mg Supp.rect 1 Supp RC HS PRN 10 Days Montelukast Sodium Tablet (Montelukast Sodium) 10 Mg Tablet 1 Tab PEG HS Clonidine Tts-1 (Clonidine) 1 Each Patch.tdwk 1 Patch TD SATURDAYS Miralax (Polyethylene Glycol 3350) 17 Gm Powd.pack 1 Packet PEG DAILY Nutren (Nutritional Supplement) 1,000 Ml Liquid 250 Ml PEG DAY Magnesium Oxide 400 Mg Tablet 1 Tab PO BID Carbamazepine 200 Mg/10 Ml Oral.susp 300 Mg PEG HS 15 ml Carbamazepine 200 Mg/10 Ml Oral.susp 200 Mg PEG BIDACBL 10 ml Vital Signs Vital Signs Date Time Temp Pulse Resp B/P (MAP) Pulse Ox O2 Delivery O2 Flow Rate FiO2 01/25/20 08:25 Room Air 01/25/20 07:00 97.5 74 16 149/78 (101) 96 97.5 Allergies Allergies Coded Allergies Type Severity Reaction Last Updated Verified No Known Drug Allergies 01/23/20 No Disposition/Orders: Other (d/c to longterm) Justicifation of Admission Dx: Justifications for Admission: Justification of Admission Dx: Yes Respiratory Failure: Airway Obstruction IRON NEGRON MD Jan 25, 2020 12:32
--- NOTE | 2020-01-25 12:36 | SNU/HH DC ---
DISCHARGE WITH HOME HEALTH DISCHARGE INFORMATION: Final Diagnosis: Problems Medical Problems: (1) GI bleed Status: Acute (2) Nausea & vomiting Status: Acute Condition on Discharge: Stable CODE STATUS: Code Status: Full HOME HEALTH: Face to Face: I certify this patient is under my care and that I, or a nurse practitioner or physician's retail loan originator assistant working with me, had a face to face encounter that meets the physician face to face encounter requirements with this patient on []. Medical Complications: Dementia RN For Eval/Treatment: Yes Physical Therapy For: Evalulation/Treatment Occupational Therapy For: Evaluation/Treatment Speech Language Pathology For: Evaluation/Treatment STEMHOLE BORER For: Community Resources Pt Meets Homebound Status: Frequent falls w/ injury, Poor cognition POST DISCHARGE ORDERS: Activity Instructions for Disc: Activity as tolerated Weight Bearing Status after Di: As tolerated DIET AFTER DISCHARGE: Wound/Incision Care: Change dressing CHECKS AFTER DISCHARGE: Checks after discharge: Check blood press - daily TREATMENT/EQUIPMENT ORDERS: Adaptive Equipment Issued: None CERTIFICATION STATEMENT: Certification Statement: Certification Statement: Based on the above finding, I certify that this patient is confined to the home and needs intermittent [facility] care, physical therapy and/or speech therapy, or continues to need occupational therapy.~ This patient is under my care, and I have initiated the establishment of the plan of care.~ This patient will be followed by myself or a community physician who will periodically review the plan of care. Home Meds Reported Medications Diclofenac Sodium (VOLTAREN) 100 Gm Gel..gram., 2 GM TP DAILY for pain for 30 Days, #100 GM 0 Refills Bilat knees 01/20/20 Ondansetron Hcl (ZOFRAN) 4 Mg Tablet, 1 TAB PO PRN Q4HRS PRN for NAUSEA, #20 TAB 7//20 Acetaminophen (ACETAMINOPHEN) 325 Mg Tablet, 650 MG PO PRN Q6HRS PRN for FEVER > 100.5'F, TAB 710/20 Prochlorperazine Maleate (Compazine) 10 Mg Tablet, 1 TAB PO Q6HRS for nausea for 30 Days, #120 TAB 0 Refills 20 Calcium Carb/Mag Hydrox/Simeth (Mylanta Tonight 800-270-80/10) 355 Ml Oral.susp, 30 ML PO Q6HRS for indigestion, MISC 20 Miconazole Nitrate (ANTI-FUNGAL CREAM) 113 Gm Cream..g., 1 JAMI TP Q8HRS for redness for 14 Days, GM 0 Refills 01/20/20 Magnesium Oxide (MAGNESIUM) 400 Mg Capsule, 1 CAP PO DAILY for supplement for 30 Days, #30 CAP 0 Refills 01/20/20 Hydralazine Hcl (HYDRALAZINE HCL) 50 Mg Tablet, 1 TAB PO TID for bp, #90 TAB 5 Refills 01/20/20 Finasteride (FINASTERIDE) 5 Mg Tablet, 1 TAB PO DAILY for retention, #30 TAB 11 Refills 01/20/20 Docusate Sodium (COLACE) 100 Mg Capsule, 1 CAP PO BID for constipation for 30 Days, #60 CAP 0 Refills 01/20/20 Diltiazem Hcl (CARDIZEM TABLET) 60 Mg Tablet, 60 MG PO QID for FOR HYPERTENSION, #30 TAB 0 Refills 01/20/20 Digoxin (DIGOXIN) 125 Mcg Tablet, 125 MCG PO DAILY for AFIB/HEART FAILURE, TAB 01/20/20 Doxazosin Mesylate (DOXAZOSIN MESYLATE) 2 Mg Tablet, 1 TAB PO HS for bph, #30 TAB 5 Refills 01/20/20 Dicyclomine Hcl (DICYCLOMINE HCL) 10 Mg/5 Ml Solution, 10 MG PO QID for abd pain, ML 01/20/20 Atropine Sulfate (Atropine Sulfate) 2 Ml Drops, 2 ML OP QID for secretions, DROP 01/20/20 Aspirin (ASPIRIN) 81 Mg Tab.chew, 1 TAB PO DAILY for chronic afib, #30 TAB 3 Refills 01/20/20 Ziprasidone Hcl (GEODON) 40 Mg Capsule, 40 MG PEG BID for MOOD/BEHAVIOR AGGRESSION, CAP 07/07/19 Bisacodyl (DULCOLAX) 10 Mg Supp.rect, 1 SUPP RC HS PRN for CONSTIPATION for 10 Days, #10 SUPP 0 Refills 07/07/19 Montelukast Sodium (MONTELUKAST SODIUM TABLET ) 10 Mg Tablet, 1 TAB PEG HS for allergy relief, #30 TAB 5 Refills 07/22/18 Clonidine (CLONIDINE TTS-1 ) 1 Each Patch.tdwk, 1 PATCH TD SATURDAYS for BP, PATCH 07/22/18 Polyethylene Glycol 3350 (MIRALAX) 17 Gm Powd.pack, 1 PACKET PEG DAILY for constipation, #30 PACKET 3 Refills 07/22/18 Nutritional Supplement (NUTREN) 1,000 Ml Liquid, 250 ML PEG 5XDAY for Nutrition, LIQUID 07/22/18 Magnesium Oxide (MAGNESIUM OXIDE) 400 Mg Tablet, 1 TAB PO BID for supplement, #60 TAB 5 Refills 07/22/18 Carbamazepine (CARBAMAZEPINE) 200 Mg/10 Ml Oral.susp, 300 MG PEG HS for Seizures 15 ml 07/22/18 Carbamazepine (CARBAMAZEPINE) 200 Mg/10 Ml Oral.susp, 200 MG PEG BIDACBL for Seizures 10 ml 07/22/18 IRON NEGRON MD Jan 25, 2020 12:36
--- NOTE | 2020-01-25 15:52 | NUR ---
Discharge Note: BARB DEVI U4 LUBBOCK Discharge instructions and discharge home medications reviewed with Pepper at [facility] and a copy given. All questions have been answered and understanding verbalized. The following instructions and handouts were given: transfer of care. Discontinued lines and drains: 20 guage left FA, tip intact. patient tolerated well. Patient discharged to [facility] via transport.
== END 2020-01-25 15:20 | DRG 177 ==
LOC: ER 09:57 → 4 NORTH 13:45
PROVIDERS: ADMIT Internal Medicine; ATTEND Internal Medicine
PROC: 0DH63UZ Insertion of Feeding Device into Stomach, Percutaneous Approach (ICD-10-PCS; principal; 2020-01-20)
PROC: 30233N1 Transfusion of Nonautologous Red Blood Cells into Peripheral Vein, Percutaneous Approach (ICD-10-PCS; 2020-01-21)
DX: J69.0 Pneumonitis due to inhalation of food and vomit (principal); E43 Unspecified severe protein-calorie malnutrition; Z43.1 Encounter for attention to gastrostomy; K56.0 Paralytic ileus; K56.50 Intestinal adhesions [bands], unspecified as to partial versus complete obstruction; K92.2 Gastrointestinal hemorrhage, unspecified; N39.0 Urinary tract infection, site not specified; Z20.828 Contact with and (suspected) exposure to other viral communicable diseases; Z68.25 Body mass index [BMI] 25.0-25.9, adult; D18.03 Hemangioma of intra-abdominal structures; D64.9 Anemia, unspecified; E11.9 Type 2 diabetes mellitus without complications; E78.5 Hyperlipidemia, unspecified; F20.9 Schizophrenia, unspecified; F31.9 Bipolar disorder, unspecified; F41.9 Anxiety disorder, unspecified; F79 Unspecified intellectual disabilities; G40.909 Epilepsy, unspecified, not intractable, without status epilepticus; I10 Essential (primary) hypertension; K21.0 Gastro-esophageal reflux disease with esophagitis; N40.0 Benign prostatic hyperplasia without lower urinary tract symptoms; R13.10 Dysphagia, unspecified; Z82.49 Family history of ischemic heart disease and other diseases of the circulatory system; Z87.891 Personal history of nicotine dependence
CPT/HCPCS: 36415; 43246; 71045; 74177; 80048; 80053; 80076; 80202; 81001; 82274; 82565; 83605; 83690; 84145; 84484; 85007; 85025; 86850; 86900; 86901; 86920; 87040; 93005; 96361; 96365; 96367; 96368; 96375; C9113; J2405; J2543; J2704; J3370; J3490; J7030; J7040; J7050; J7120; P9016; Q9967; 99285-25; G0378; U0003-CS